=== PATIENT | male | born 1940 | race Caucasian/White ===

== ENCOUNTER 2018-03-09 06:31 | Inpatient (IN) | payer MEDICARE, SELFPAY ==
[~2018-03-09] VITALS: Ht 177.8 cm; Wt 137.5 kg
[~2018-03-09 06:31] MED LIST: ACET325 PO; ALBU3IS INH; ALBU90OI; ALBU90OI6 INH; ALBUTEROL; AMOCLA500 PO; ASPI81EC PO; AZIT500 PO; Aspir 8181 MG PO; Brovana15 MCG/2 M INH; CEFP200 PO; CIME400 PO; CIPR500; CLIN150 PO; DABI150C PO; DIPH50 PO; ESCI10; FLUSAL2505 IH; FURO20; FURO40; FURO40 PO; GLYMET5 PO; JANUMET XR 50-1 EACH PO; LORA10ER PO; Lasix20 MG PO; METF500 PO; METO25ER PO; METO5 PO; METO50 PO; METPRE4DP PO; OMEP20ER; OMEP20ER PO; PRED20 PO; PSEU120ER PO; PSEU30; Pulmicort Fle180 MCG INH; RANI150 PO; SERT100 PO; SPIR25; TUDORZA PRESS400 MCG INH; Ventolin Soln3 ML INH; WARF5; [UNRECOGNIZED DRUG - OTHER]; [UNRECOGNIZED DRUG - REMARK]
[2018-03-09 07:01] LABS: BASOPHILS ABSOLUTE AUTO 0.05 K/mm3 (0.00-0.23); BASOPHILS PERCENT AUTO 0 % (0-2); EOSINOPHILS ABSOLUTE AUTO 0.14 K/mm3 (0.00-0.68); EOSINOPHILS PERCENT AUTO 1 % (0-6); Hematocrit 54.3 % (37.0-53.0); Hemoglobin 17.2 g/dL (13.5-17.5); IMMATURE GRAN ABSOLUTE AUTO 0.18 K/mm3 (0.00-0.10); IMMATURE GRAN PERCENT AUTO 1 % (0-1); LYMPHOCYTES ABSOLUTE AUTO 0.77 K/mm3 (0.84-5.20); LYMPHOCYTES PERCENT AUTO 3 % (21-46); MONOCYTES ABSOLUTE AUTO 0.97 K/mm3 (0.16-1.47); MONOCYTES PERCENT AUTO 4 % (4-13); Mean Corpuscular HGB 28.9 pg (26.0-34.0); Mean Corpuscular HGB Conc 31.7 g/dL (31.5-36.5); Mean Corpuscular Volume 91 fL (80-100); Mean Platelet Volume 10.2 fL (9.1-12.4); NEUTROPHILS ABSOLUTE AUTO 22.25 K/mm3 (1.96-9.15); NEUTROPHILS PERCENT AUTO 91 % (41-73); Platelet Count 276 K/mm3 (150-400); RDW Coefficient Variation 14.6 % (11.7-14.2); RDW Standard Deviation 49.1 fL (35.1-46.3); Red Blood Cell Count 5.96 M/mm3 (4.30-5.90); White Blood Cell Count 24.36 K/mm3 (4.00-11.30)
[2018-03-09 07:14] LABS: PCO2 Arterial 50.9 mmHg (35-45); PO2 Arterial 82.5 mmHg (80-100); pH Blood Arterial 7.32 (7.35-7.45)
[2018-03-09 07:16] LABS: Alanine Aminotransfer (ALT/SGP 20 U/L (12-78); Albumin, Blood 3.4 g/dL (3.4-5.0); Albumin/Globulin Ratio 0.8 (0.8-1.8); Alk Phos 49 U/L (50-136); Anion Gap 9 mmol/L (6-16); Aspartate Aminotrans (AST/SGOT 15 U/L (12-37); Bilirubin, Total 0.8 mg/dL (0.1-1.0); Blood Urea Nitrogen 17 mg/dL (8-24); Bun/Creatinine Ratio 16.2 (12.0-20.0); CO2, Blood 25 mmol/L (21-32); Calcium, Blood 8.8 mg/dL (8.5-10.1); Chloride, Blood 102 mmol/L (98-108); Creatinine, Blood 1.05 mg/dL (0.60-1.20); Globulin, Blood 4.5 g/dL (2.2-4.0); Glomerular Filtration Rate >60 (60-); Glucose, Blood 196 mg/dL (70-99); Potassium, Blood 5.2 mmol/L (3.5-5.5); Sodium, Blood 136 mmol/L (136-145); Total Protein, Blood 7.9 g/dL (6.4-8.2); Troponin I <0.015 ng/mL (0.000-0.040)
[2018-03-09 07:23] LABS: International Normalized Ratio 1.13; Prothrombin Time Results 11.8 Sec (9.7-11.5)
[2018-03-09 08:15] LABS: Source, Urine Clean Catch
[2018-03-09 08:28] LABS: Bilirubin, Urine Neg (Neg); Blood, Urine Neg (Neg); Glucose Qualitative, Urine Neg (Neg); Ketones, Urine Neg (Neg); Leukocyte Esterase, Urine Neg (Neg); Nitrite, Urine Neg (Neg); Protein, Urine 1+ (Neg); Specific Gravity, Urine 1.015 (1.003-1.022); Urobilinogen, Urine NORM (Normal)
[2018-03-09 08:39] LABS: Appearance, Urine Clear (Clear); Color, Urine Yellow (P-Yellow)
[2018-03-10 04:15] LABS: BASOPHILS ABSOLUTE AUTO 0.02 K/mm3 (0.00-0.23); BASOPHILS PERCENT AUTO 0 % (0-2); EOSINOPHILS PERCENT AUTO 0 % (0-6); Hemoglobin 13.8 g/dL (13.5-17.5); IMMATURE GRAN ABSOLUTE AUTO 0.18 K/mm3 (0.00-0.10); IMMATURE GRAN PERCENT AUTO 1 % (0-1); LYMPHOCYTES ABSOLUTE AUTO 0.45 K/mm3 (0.84-5.20); LYMPHOCYTES PERCENT AUTO 2 % (21-46); MONOCYTES ABSOLUTE AUTO 0.33 K/mm3 (0.16-1.47); MONOCYTES PERCENT AUTO 1 % (4-13); Mean Corpuscular HGB 28.8 pg (26.0-34.0); Mean Corpuscular HGB Conc 31.4 g/dL (31.5-36.5); Mean Corpuscular Volume 92 fL (80-100); Mean Platelet Volume 10.5 fL (9.1-12.4); NEUTROPHILS ABSOLUTE AUTO 22.78 K/mm3 (1.96-9.15); NEUTROPHILS PERCENT AUTO 96 % (41-73); Platelet Count 190 K/mm3 (150-400); RDW Coefficient Variation 14.9 % (11.7-14.2); RDW Standard Deviation 49.9 fL (35.1-46.3); White Blood Cell Count 23.76 K/mm3 (4.00-11.30)
[2018-03-10 04:34] LABS: Albumin, Blood 2.5 g/dL (3.4-5.0); Anion Gap 5 mmol/L (6-16); Blood Urea Nitrogen 18 mg/dL (8-24); CO2, Blood 27 mmol/L (21-32); Calcium, Blood 7.9 mg/dL (8.5-10.1); Chloride, Blood 106 mmol/L (98-108); Creatinine, Blood 0.75 mg/dL (0.60-1.20); Glomerular Filtration Rate >60 (60-); Glucose, Blood 218 mg/dL (70-99); Phosphorus, Blood 2.3 mg/dL (2.5-4.9); Potassium, Blood 4.7 mmol/L (3.5-5.5); Sodium, Blood 138 mmol/L (136-145)
[2018-03-11 05:15] LABS: BASOPHILS ABSOLUTE AUTO 0.02 K/mm3 (0.00-0.23); BASOPHILS PERCENT AUTO 0 % (0-2); EOSINOPHILS PERCENT AUTO 0 % (0-6); Hematocrit 43.5 % (37.0-53.0); Hemoglobin 13.7 g/dL (13.5-17.5); IMMATURE GRAN ABSOLUTE AUTO 0.14 K/mm3 (0.00-0.10); IMMATURE GRAN PERCENT AUTO 1 % (0-1); LYMPHOCYTES ABSOLUTE AUTO 0.37 K/mm3 (0.84-5.20); LYMPHOCYTES PERCENT AUTO 2 % (21-46); MONOCYTES PERCENT AUTO 3 % (4-13); Mean Corpuscular HGB 29.1 pg (26.0-34.0); Mean Corpuscular HGB Conc 31.5 g/dL (31.5-36.5); Mean Corpuscular Volume 92 fL (80-100); Mean Platelet Volume 10.8 fL (9.1-12.4); NEUTROPHILS PERCENT AUTO 94 % (41-73); Platelet Count 198 K/mm3 (150-400); RDW Coefficient Variation 15.1 % (11.7-14.2); RDW Standard Deviation 51.3 fL (35.1-46.3); Red Blood Cell Count 4.71 M/mm3 (4.30-5.90); White Blood Cell Count 16.83 K/mm3 (4.00-11.30)
[2018-03-11 05:34] LABS: Albumin, Blood 2.6 g/dL (3.4-5.0); Anion Gap 4 mmol/L (6-16); Blood Urea Nitrogen 20 mg/dL (8-24); Bun/Creatinine Ratio 27.9 (12.0-20.0); CO2, Blood 28 mmol/L (21-32); Calcium, Blood 8.2 mg/dL (8.5-10.1); Chloride, Blood 105 mmol/L (98-108); Creatinine, Blood 0.72 mg/dL (0.60-1.20); Glomerular Filtration Rate >60 (60-); Glucose, Blood 259 mg/dL (70-99); Phosphorus, Blood 2.3 mg/dL (2.5-4.9); Potassium, Blood 5.2 mmol/L (3.5-5.5); Sodium, Blood 137 mmol/L (136-145); Troponin I <0.015 ng/mL (0.000-0.040)
[2018-03-12 03:53] LABS: BASOPHILS ABSOLUTE AUTO 0.01 K/mm3 (0.00-0.23); BASOPHILS PERCENT AUTO 0 % (0-2); EOSINOPHILS PERCENT AUTO 0 % (0-6); Hematocrit 41.5 % (37.0-53.0); IMMATURE GRAN ABSOLUTE AUTO 0.06 K/mm3 (0.00-0.10); IMMATURE GRAN PERCENT AUTO 1 % (0-1); LYMPHOCYTES ABSOLUTE AUTO 0.62 K/mm3 (0.84-5.20); LYMPHOCYTES PERCENT AUTO 5 % (21-46); MONOCYTES ABSOLUTE AUTO 0.76 K/mm3 (0.16-1.47); MONOCYTES PERCENT AUTO 6 % (4-13); Mean Corpuscular HGB Conc 31.3 g/dL (31.5-36.5); Mean Corpuscular Volume 93 fL (80-100); Mean Platelet Volume 10.6 fL (9.1-12.4); NEUTROPHILS ABSOLUTE AUTO 10.56 K/mm3 (1.96-9.15); NEUTROPHILS PERCENT AUTO 88 % (41-73); Platelet Count 176 K/mm3 (150-400); RDW Coefficient Variation 15.1 % (11.7-14.2); RDW Standard Deviation 51.6 fL (35.1-46.3); Red Blood Cell Count 4.48 M/mm3 (4.30-5.90); White Blood Cell Count 12.01 K/mm3 (4.00-11.30)
[2018-03-12 04:08] LABS: Albumin, Blood 2.5 g/dL (3.4-5.0); Anion Gap 6 mmol/L (6-16); Blood Urea Nitrogen 24 mg/dL (8-24); CO2, Blood 32 mmol/L (21-32); Calcium, Blood 8.3 mg/dL (8.5-10.1); Chloride, Blood 103 mmol/L (98-108); Glomerular Filtration Rate >60 (60-); Glucose, Blood 174 mg/dL (70-99); Phosphorus, Blood 2.8 mg/dL (2.5-4.9); Potassium, Blood 4.7 mmol/L (3.5-5.5); Sodium, Blood 141 mmol/L (136-145)
[2018-03-13 04:15] LABS: BASOPHILS ABSOLUTE AUTO 0.01 K/mm3 (0.00-0.23); BASOPHILS PERCENT AUTO 0 % (0-2); EOSINOPHILS ABSOLUTE AUTO 0.11 K/mm3 (0.00-0.68); EOSINOPHILS PERCENT AUTO 1 % (0-6); Hemoglobin 13.7 g/dL (13.5-17.5); IMMATURE GRAN ABSOLUTE AUTO 0.06 K/mm3 (0.00-0.10); IMMATURE GRAN PERCENT AUTO 1 % (0-1); LYMPHOCYTES ABSOLUTE AUTO 0.69 K/mm3 (0.84-5.20); LYMPHOCYTES PERCENT AUTO 8 % (21-46); MONOCYTES PERCENT AUTO 8 % (4-13); Mean Corpuscular HGB 29.2 pg (26.0-34.0); Mean Corpuscular HGB Conc 31.9 g/dL (31.5-36.5); Mean Corpuscular Volume 92 fL (80-100); Mean Platelet Volume 10.7 fL (9.1-12.4); NEUTROPHILS ABSOLUTE AUTO 6.99 K/mm3 (1.96-9.15); NEUTROPHILS PERCENT AUTO 82 % (41-73); Platelet Count 174 K/mm3 (150-400); RDW Coefficient Variation 14.8 % (11.7-14.2); Red Blood Cell Count 4.69 M/mm3 (4.30-5.90); White Blood Cell Count 8.56 K/mm3 (4.00-11.30)
[2018-03-13 04:33] LABS: Albumin, Blood 2.8 g/dL (3.4-5.0); Anion Gap 5 mmol/L (6-16); Blood Urea Nitrogen 22 mg/dL (8-24); Bun/Creatinine Ratio 29.8 (12.0-20.0); CO2, Blood 36 mmol/L (21-32); Calcium, Blood 8.8 mg/dL (8.5-10.1); Chloride, Blood 96 mmol/L (98-108); Creatinine, Blood 0.74 mg/dL (0.60-1.20); Glomerular Filtration Rate >60 (60-); Glucose, Blood 144 mg/dL (70-99); Phosphorus, Blood 3.1 mg/dL (2.5-4.9); Potassium, Blood 4.2 mmol/L (3.5-5.5); Sodium, Blood 137 mmol/L (136-145)
[2018-03-14 04:03] LABS: BASOPHILS ABSOLUTE AUTO 0.01 K/mm3 (0.00-0.23); BASOPHILS PERCENT AUTO 0 % (0-2); EOSINOPHILS ABSOLUTE AUTO 0.22 K/mm3 (0.00-0.68); EOSINOPHILS PERCENT AUTO 2 % (0-6); Hematocrit 44.1 % (37.0-53.0); Hemoglobin 14.3 g/dL (13.5-17.5); IMMATURE GRAN ABSOLUTE AUTO 0.12 K/mm3 (0.00-0.10); IMMATURE GRAN PERCENT AUTO 1 % (0-1); LYMPHOCYTES PERCENT AUTO 8 % (21-46); MONOCYTES ABSOLUTE AUTO 0.81 K/mm3 (0.16-1.47); MONOCYTES PERCENT AUTO 8 % (4-13); Mean Corpuscular HGB Conc 32.4 g/dL (31.5-36.5); Mean Corpuscular Volume 90 fL (80-100); Mean Platelet Volume 10.7 fL (9.1-12.4); NEUTROPHILS ABSOLUTE AUTO 7.73 K/mm3 (1.96-9.15); NEUTROPHILS PERCENT AUTO 80 % (41-73); Platelet Count 181 K/mm3 (150-400); RDW Coefficient Variation 14.5 % (11.7-14.2); RDW Standard Deviation 47.2 fL (35.1-46.3); Red Blood Cell Count 4.93 M/mm3 (4.30-5.90); White Blood Cell Count 9.69 K/mm3 (4.00-11.30)
[2018-03-14 04:22] LABS: Albumin, Blood 2.7 g/dL (3.4-5.0); Anion Gap 5 mmol/L (6-16); Blood Urea Nitrogen 21 mg/dL (8-24); Bun/Creatinine Ratio 25.5 (12.0-20.0); CO2, Blood 37 mmol/L (21-32); Calcium, Blood 8.7 mg/dL (8.5-10.1); Chloride, Blood 94 mmol/L (98-108); Creatinine, Blood 0.83 mg/dL (0.60-1.20); Glomerular Filtration Rate >60 (60-); Glucose, Blood 142 mg/dL (70-99); Phosphorus, Blood 3.9 mg/dL (2.5-4.9); Sodium, Blood 136 mmol/L (136-145)
[2018-03-15 05:10] LABS: Albumin, Blood 2.8 g/dL (3.4-5.0); Anion Gap 5 mmol/L (6-16); Blood Urea Nitrogen 19 mg/dL (8-24); Bun/Creatinine Ratio 25.4 (12.0-20.0); CO2, Blood 36 mmol/L (21-32); Calcium, Blood 8.9 mg/dL (8.5-10.1); Chloride, Blood 94 mmol/L (98-108); Creatinine, Blood 0.75 mg/dL (0.60-1.20); Glomerular Filtration Rate >60 (60-); Glucose, Blood 160 mg/dL (70-99); Phosphorus, Blood 3.7 mg/dL (2.5-4.9); Potassium, Blood 3.8 mmol/L (3.5-5.5); Sodium, Blood 135 mmol/L (136-145)
[2018-03-15] MEDS ORDERED: ACET325 PO (11:35)
[2018-03-15] MEDS ORDERED: GUAI600T33 PO (11:40)
[2018-03-15] MEDS ORDERED: Amoxicillin875 MG PO (11:40)
[2018-03-15] MEDS ORDERED: Pedi-Dri 100,0060 GM TOP (11:41)
[2018-03-15] MEDS ORDERED: Acidophilus La1 EACH PO (11:43)
== END 2018-03-15 15:53 | disposition home or self-care (01) | DRG 871 ==
LOC: ER 06:31 → ICUW 08:14 → PCU 03-12 11:51
PROVIDERS: Emergency Medicine; Family Medicine; Internal Medicine; Internal Medicine Critical Care Medicine
DX: A40.3 Sepsis due to Streptococcus pneumoniae (principal); J96.21 Acute and chronic respiratory failure with hypoxia; R65.21 Severe sepsis with septic shock; J18.9 Pneumonia, unspecified organism; J96.22 Acute and chronic respiratory failure with hypercapnia; Z68.42 Body mass index [BMI] 45.0-49.9, adult; J44.1 Chronic obstructive pulmonary disease with (acute) exacerbation; J44.0 Chronic obstructive pulmonary disease with (acute) lower respiratory infection; E66.9 Obesity, unspecified; G47.33 Obstructive sleep apnea (adult) (pediatric); I10 Essential (primary) hypertension; I48.91 Unspecified atrial fibrillation; R53.81 Other malaise; Z89.511 Acquired absence of right leg below knee; I87.2 Venous insufficiency (chronic) (peripheral); I25.10 Atherosclerotic heart disease of native coronary artery without angina pectoris; Z86.718 Personal history of other venous thrombosis and embolism; I12.9 Hypertensive chronic kidney disease with stage 1 through stage 4 chronic kidney disease, or unspecified chronic kidney disease; E11.22 Type 2 diabetes mellitus with diabetic chronic kidney disease; N18.9 Chronic kidney disease, unspecified; I95.9 Hypotension, unspecified; Z99.81 Dependence on supplemental oxygen
CPT/HCPCS: 36415; 36600; 51700; 51702; 51703; 71045; 71046; 80053; 80069; 82803; 82947; 83605; 83880; 84484; 85025; 85610; 87040; 87070; 87077; 87185; 87186; 87205; 93005; 93010; 94640; 94660; 94762; 96361; 96365; 96372; 96375; 97161; 97165; 97535; 99285; C8929; G8978; G8979; G8980; G8987; G8988; G8989; J0456; J0696; J1650; J1940; J2060; J2930; J3010; J7030; J7050; J7060; J7120; Q9957

== ENCOUNTER 2019-05-13 10:00 | Inpatient (IN) | payer MEDICARE, SELFPAY ==
[~2019-05-13] VITALS: Ht 175.3 cm; Wt 137.2 kg
[~2019-05-13 10:00] MED LIST changes: +ALBU2.5V5 INH; +Acidophilus La1 EACH PO; +Amoxicillin875 MG PO; +GUAI600T33 PO; +Pedi-Dri 100,0060 GM TOP; -Ventolin Soln3 ML INH; +[UNRECOGNIZED DRUG - OTHER] PO
[2019-05-13 10:32] LABS: BASOPHILS ABSOLUTE AUTO 0.03 K/mm3 (0.00-0.23); BASOPHILS PERCENT AUTO 0 % (0-2); EOSINOPHILS ABSOLUTE AUTO 0.31 K/mm3 (0.00-0.68); EOSINOPHILS PERCENT AUTO 4 % (0-6); Hematocrit 49.8 % (37.0-53.0); Hemoglobin 15.7 g/dL (13.5-17.5); IMMATURE GRAN ABSOLUTE AUTO 0.03 K/mm3 (0.00-0.10); IMMATURE GRAN PERCENT AUTO 0 % (0-1); LYMPHOCYTES ABSOLUTE AUTO 0.83 K/mm3 (0.84-5.20); LYMPHOCYTES PERCENT AUTO 12 % (21-46); MONOCYTES ABSOLUTE AUTO 0.68 K/mm3 (0.16-1.47); MONOCYTES PERCENT AUTO 9 % (4-13); Mean Corpuscular HGB Conc 31.5 g/dL (31.5-36.5); Mean Corpuscular Volume 95 fL (80-100); Mean Platelet Volume 10.7 fL (9.1-12.4); NEUTROPHILS ABSOLUTE AUTO 5.36 K/mm3 (1.96-9.15); NEUTROPHILS PERCENT AUTO 74 % (41-73); Platelet Count 250 K/mm3 (150-400); RDW Coefficient Variation 14.5 % (11.7-14.2); Red Blood Cell Count 5.24 M/mm3 (4.30-5.90); White Blood Cell Count 7.24 K/mm3 (4.00-11.30)
[2019-05-13 10:35] LABS: Base Excess Venous 14.5 mmol/L; Bicarbonate Venous 34.5 mmol/L (24.0-30.0); PCO2 Venous 69.1 mmHg (38-42); PO2 Venous 63.9 mmHg (38-42); pH Blood Venous 7.37 (7.34-7.37)
[2019-05-13] MEDS ORDERED: Sudogest30 MG PO (10:35)
[2019-05-13 10:45] LABS: Alanine Aminotransfer (ALT/SGP 13 U/L (12-78); Albumin, Blood 3.2 g/dL (3.4-5.0); Albumin/Globulin Ratio 0.8 (0.8-1.8); Alk Phos 57 U/L (50-136); Anion Gap 3 mmol/L (6-16); Aspartate Aminotrans (AST/SGOT 10 U/L (12-37); Bilirubin, Total 0.7 mg/dL (0.1-1.0); Blood Urea Nitrogen 11 mg/dL (8-24); Bun/Creatinine Ratio 13.3 (12.0-20.0); CO2, Blood 38 mmol/L (21-32); Calcium, Blood 8.9 mg/dL (8.5-10.1); Chloride, Blood 97 mmol/L (98-108); Creatinine, Blood 0.83 mg/dL (0.60-1.20); Globulin, Blood 3.8 g/dL (2.2-4.0); Glomerular Filtration Rate >60 (60-); Glucose, Blood 109 mg/dL (70-99); Potassium, Blood 4.5 mmol/L (3.5-5.5); Sodium, Blood 138 mmol/L (136-145); Troponin I <0.015 ng/mL (0.000-0.040)
[2019-05-13 10:47] LABS: International Normalized Ratio 1.18; Prothrombin Time Results 12.3 Sec (9.7-11.5)
[2019-05-13 11:18] LABS: Source, Urine Voided
[2019-05-13 11:23] LABS: Bilirubin, Urine Neg (Neg); Blood, Urine Neg (Neg); Glucose Qualitative, Urine Neg (Neg); Ketones, Urine 1+ (Neg); Leukocyte Esterase, Urine 1+ (Neg); Nitrite, Urine Neg (Neg); Protein, Urine 2+ (Neg); Urobilinogen, Urine 2+ (Normal)
[2019-05-13 11:41] LABS: Appearance, Urine Clear (Clear); Color, Urine Yellow (P-Yellow)
[2019-05-13 11:51] LABS: Bacteria Mod /hpf; Granular Casts 0-2 /lpf (0); Mucus Heavy (0-Heavy); Red Blood Cells, Urine 0-2 /hpf (0-2); Squamous Epithelial Cells Rare /hpf (Few); White Blood Cells, Urine 0-2 /hpf (0-5)
[2019-05-13] MEDS ORDERED: Zoloft100 MG PO (15:00)
[2019-05-13] MEDS ORDERED: FURO40 PO (15:01)
[2019-05-13] MEDS ORDERED: Glyburide-Metf1 EAC2 PO (15:01)
[2019-05-13] MEDS ORDERED: ALBU90OI61 INH (15:02)
--- NOTE | 2019-05-13 16:28 | NUR ---
ATTEMPTED TO CALL ED FOR REPORT FOR PT ADMIT- AWAITING A CALL BACK
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
--- NOTE | 2019-05-14 07:11 | NUR ---
PT admitted with acute resp failure. needed oxygen 4 liters at rest to maintain sats greater than 88%. called to say PT is supposed to take 60 mg of oral lasix q day and has only been taking prn. Compliant with hospital cpap. not out of bed wc bound baseline.
--- NOTE | 2019-05-14 07:38 | NUR ---
ASSUMED CARE OF PT- PT ALERT AND ORIENTED, NO CURRENT S&S OF PAIN OR DISTRESS NOTED. PT HAD C-PAP ON O2 SATS 88% WITH A 4L BLEED IN, INCREASED TO 5L BLEED IN AND SATS CAME UP TO 91%. PT LLE IS COOL TO TOUCH HOWEVER PULSE IS PALPABLE, EDEMA GREATLY REDUCED TODAY FROM YESTERDAYS NON-PITTING EDEMA, TRACE AMOUNTS STILL PRESENT. PT IN BED CALL LIGHT IN REACH, PT CALLS APPROPRIATELY, BEDSIDE REPORT RECIEVED FROM NIGHT TAYLER VELASQUEZ.
--- NOTE | 2019-05-14 11:38 | NUR ---
Patient is sitting up in bed and alert. Patient openly shares about his medical issues, his family (including of his son several years ago) and about his michelle. Patient admits that the medical issues he has are, in large part, a result of his choices and that is a struggle for him. I listen empathically, provide pastoral spiritual counselor, explore patient's belief system (Restorationist), recite Bible verses that deal with guilt and forgiveness, encourage self-care and provide prayer. Patient responds well and voices appreciation for the visit.
--- NOTE | 2019-05-14 17:40 | NUR ---
LATE ENTRY 1200 PER RT RECOMENDATION SPOKE TO DR RAMOS ABOUT PT. LUNG SOUND TIGHT AND DIMINISHED T/O, RT HEARS CRACKLES IN THE BASES. CAME BACK TO SEE THE PT, NEW ORDER FOR OT IV LASIX. PT SBP 111 DR STATED OK TO GIVE IV LASIX NO PARAMETERS FOR MED. ADMINISTERED ORDERED ONCE VERIFIED SBP 106 AT THE TIME OF ADMIN.
--- NOTE | 2019-05-14 18:03 | NUR ---
SHIFT SUMMARY- PT ALERT AND ORTIENTED, RECIEVED IV LASIX THIS EVENING WITH NO RESULT AT THIS TIME. PT IS SITTING UP IN BED WITH THE CALL LIGHT IN REACH, PT CALLS APPROPRIATELY. PT HAS FAMILY AT THE BEDSIDE AT THIS TIME. PT IS ON IV SOLUMEDROL QID AT THIS TIME. DENIES PAIN BUT SEEMS TO HAVE AN INCREASED SOB T/O THE DAY. PT SPENT A LARGE AMOUNT OF THE DAY ON HIS CPAP WITH 5L O2 BLEED IN. WILL CONTINUE TO MONITOR PT AND PASS ON INFORMATION IN BEDSIDE REPORT.
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
--- NOTE | 2019-05-15 04:17 | NUR ---
0300 PT TRANSFERRED FROM ROOM 350 TO ROOM 326 PER BED WITH ALL PERSONAL BELONGINGS FOR NURSING CONVENIENCE. THIS NURSE ATTEMPTED TO CALL RACHEL AT [phone] AND WAS UNABLE TO LEAVE MESSAGE MAILBOX WAS FULL.
--- NOTE | 2019-05-15 05:25 | NUR ---
SHIFT SUMMARY: 79 Y/O MALE RESTED COMFORTABLY FOR THIS NURSE DURING SHIFT, NO RESPIRATORY DISTRESS NOTED, WEARING C/PAP WITH 5L/M OF O2, DENIES PAIN OR NAUSEA, BED LOW POSITION, CALL LIGHT AT SIDE.
[2019-05-15 05:39] LABS: Anion Gap 4 mmol/L (6-16); Blood Urea Nitrogen 25 mg/dL (8-24); Bun/Creatinine Ratio 29.6 (12.0-20.0); CO2, Blood 36 mmol/L (21-32); Calcium, Blood 8.8 mg/dL (8.5-10.1); Chloride, Blood 95 mmol/L (98-108); Creatinine, Blood 0.84 mg/dL (0.60-1.20); Glomerular Filtration Rate >60 (60-); Glucose, Blood 189 mg/dL (70-99); Potassium, Blood 4.3 mmol/L (3.5-5.5); Sodium, Blood 135 mmol/L (136-145)
--- NOTE | 2019-05-15 18:38 | NUR ---
SHIFT SUMMARY PT AXO, PLEASNAT AND COOPERATIVE WITH CARE. SOB WITH EXERTION. VSS. 92% ON 5L VIA NC. IV PATENT AND SALINE LOCKED. PT DENIES PAIN. BED IN LOW POSITION, CALL LIGHT WITHIN REACH. PT CALLS APPROPRIATELY
--- NOTE | 2019-05-16 04:54 | NUR ---
SHIFT SUMMARY: PT IS ALERT AND ORIENTED. PT IS CALM AND COOPERATIVE WITH CARE. PT IS A MAX ASSIST R. AKA. PT CALLS APPROPRIATELY. PT WORE CPAP OVERNIGHT. PT DENIES PAIN, NAUSEA, VOMITING, AND SOB. PT SLEPT MOST OF THE NIGHT WITHOUT COMPLICATION. NO ACUTE CHANGES. WILL CONTINUE TO MONITOR.
[2019-05-16 08:01] LABS: Anion Gap 3 mmol/L (6-16); Blood Urea Nitrogen 27 mg/dL (8-24); Bun/Creatinine Ratio 37.3 (12.0-20.0); CO2, Blood 40 mmol/L (21-32); Chloride, Blood 94 mmol/L (98-108); Creatinine, Blood 0.72 mg/dL (0.60-1.20); Glomerular Filtration Rate >60 (60-); Glucose, Blood 212 mg/dL (70-99); Potassium, Blood 4.2 mmol/L (3.5-5.5); Sodium, Blood 137 mmol/L (136-145)
[2019-05-16 12:02] LABS: PO2 Arterial 70.7 mmHg (80-100)
[2019-05-16 12:03] LABS: PCO2 Arterial 71 mmHg (35-45)
--- NOTE | 2019-05-16 19:20 | NUR ---
SHIFT SUMMARY PT AXO PLEASANT AND COOPERATIVE WITH CARE. 1050 PT COMPLAINED OF SOB WITH BED BATH. NURSE CALLED RT TO ASSESS. JENNA SAUCEDO, RT GAVE BREATHING TX, SEE NOTE. ABG DRAWN AT 1150, SEE LABS. AT 1330, PT COMPLAINED OF SOB. RACHEL LUCIANO IN TO ASSESS. PT PLACED ON CPAP AT 3L, SAT AT 89%. DR RAMOS NOTIFIED AT 1343, BIPAP ORDERED AND PRN ALBUTEROL. DR DORMAN IN TO CONSULT, SEE NOTE. PT REMAINED ON BI-PAP PER HIS PREFERENCE. O2 SAT AT 92%. BED IN LOW POSITION, CALL LIGHT WITHIN REACH. PT ENCOURAGED TO GET OOB TO WHEELCHAIR.
[2019-05-17 05:08] LABS: Anion Gap 5 mmol/L (6-16); Blood Urea Nitrogen 29 mg/dL (8-24); Bun/Creatinine Ratio 37.9 (12.0-20.0); CO2, Blood 39 mmol/L (21-32); Calcium, Blood 8.9 mg/dL (8.5-10.1); Chloride, Blood 94 mmol/L (98-108); Creatinine, Blood 0.77 mg/dL (0.60-1.20); Glomerular Filtration Rate >60 (60-); Glucose, Blood 221 mg/dL (70-99); Potassium, Blood 3.8 mmol/L (3.5-5.5); Sodium, Blood 138 mmol/L (136-145)
--- NOTE | 2019-05-17 06:10 | NUR ---
a+o, p+c with care, no complaint of sob, rt provided scheduled treatments, still waiting opportunity to inform ss of need for bipap eval, bipap used throughout the shift, call light in reach, will provide assesment and treatment until bsr shared with oncoming day staff
--- NOTE | 2019-05-17 16:37 | NUR ---
SHIFT SUMMARY PT REQUIRED INSULIN COVERAGE TODAY. HE IS A&O X4 AND COOPERATIVE WITH CARE. I DISCOVERED THE BEGINNING OF SKIN BREAKDOWN ON HIS COCCYX TODAY AND INTERIOR ASPECT OF HIS UPPER LEGS, MEPILEX APPLIED TO ALL - PHOTOS IN CHART. IV ANTIBIOTICS INFUSING. IV STEROIDS ADMINISTERED ORDERED. DOCTOR RECOMMENDING NONINVASIVE HOME VENTILATOR SYSTEM TO HELP WITH COPD/RESPIRATORY DIFFICULTIES. PT USING BIPAP WHILE IN HOSPITAL, SWITCHING TO NC @ 2 LPM WHEN VISITING OR EATING. NOTE - OLD CELLULITIS OF LLE - NONPAINFUL, RT LEG AMPUTATION.
--- NOTE | 2019-05-18 04:04 | NUR ---
pt refused to be changed and repositioned because of shortness of breath but has a yeast infection on bottom. Also did not want leg to be elevated. He refused to be cared for.
--- NOTE | 2019-05-18 06:22 | NUR ---
a+o, using bipap, refused to be repositioned stated his bottom did not hurt and that he did not wish to disconnect his bipap, assured him we would be careful with his 02 and that even if his backside did not hurt it was better to reposition frequently, call light in reach, will continue to monitor and treat until share bsr with day staff
--- NOTE | 2019-05-18 13:15 | NUR ---
SPOKE WITH DR. DAS ABOUT PATIENT'S REQUEST FOR HIS HOME PSEUDOPHED. NEW ORDER TO START THAT MEDICATION.
--- NOTE | 2019-05-18 14:25 | NUR ---
Initial Visit: Palliative Care Consult for Advanced Care Planning. Pt is A&Ox4 and denies pain at this time. Pt reports moderate dyspnea that worsens with exertion. Pt denies anxiety at this time. Engaged in therapeutic discussion regarding advanced care planning. Pt reports living at home with his and is of Hindu michelle. He reports adequate support with his , 8 children, and many grandchildren. Pt reports using a power chair and is independent of bathing, dressing, and feeding. Assessed Pt's knowledge of COPD with him stating "not much". Educated Pt on disease process including trajectory of disease. Educated on the importance of routine discussions with his hiv nurse and PCP regarding disease process in order to plan accordingly. Educated Pt on hospice as an option when he reaches end stage. Discussed AD/POLST and Pt reports having one completed at home. Requested Pt to have his or family members bring copy to hospital for hospital records. Pt reports no concerns at this time. Palliative Care will remain available.
--- NOTE | 2019-05-18 16:12 | NUR ---
[facility] intial visit: Mr. Padron was welcoming of visit, but told me that talking made his SOB worse. Visit kept short for this reason. He is Adventist, but does not regularly attend sevices. He has a large, loving family and they are his vikki and reason for living. He allowed me to pray for him at bedside. He states he is not worried or fearful, and beleives he is improving and humera return home soon. I will remain available.
--- NOTE | 2019-05-18 18:37 | NUR ---
END OF SHIFT SUMMARY: PATIENT DENIED PAIN OR DISCOMFORT THROUGHOUT THE SHIFT. PATIENT REQUESTED BIPAP THREE TIMES TODAY. REQUESTED PRN BREATHING TREATMENT ONCE. STABLE ON 2.5L VIA NC WHEN NOT ON BIPAP. PATIENT IS AWAITING POTENTIAL DISCHARGE TOMORROW. PATIENT AGREEABLE TO REPOSITION THROUGHOUT THE DAY. PATIENT REFUSED GETTING UP TO THE CHAIR OR WHEELCHAIR RELATED TO FATIGUE AND SOB. ENCOURAGED PATIENT TO PERFORM ROM EXERCISES IN THE BED.
--- NOTE | 2019-05-19 01:56 | NUR ---
informed hospitalist of day shifts concern r/steroid change from q6 to daily with no coverage from 1144 on 05/18/19 until 0900 05/19/19 she said she would evaluate and write orders as appropriate, pt watching tv and resting with no visible change or distress, bed in low position, call light in reach, bipap functioning as designed
[2019-05-19 05:48] LABS: Anion Gap 4 mmol/L (6-16); Blood Urea Nitrogen 34 mg/dL (8-24); Bun/Creatinine Ratio 45.2 (12.0-20.0); CO2, Blood 38 mmol/L (21-32); Calcium, Blood 8.7 mg/dL (8.5-10.1); Chloride, Blood 96 mmol/L (98-108); Creatinine, Blood 0.75 mg/dL (0.60-1.20); Glomerular Filtration Rate >60 (60-); Glucose, Blood 211 mg/dL (70-99); Potassium, Blood 3.5 mmol/L (3.5-5.5); Sodium, Blood 138 mmol/L (136-145)
--- NOTE | 2019-05-19 06:35 | NUR ---
bipap working well, hob raised states he rested well, call light in reach, able to make needs known, will continue to monitor and treat until sbar report shared with day staff, saline locked.
[2019-05-19] MEDS ORDERED: LEVO750 PO (12:57)
[2019-05-19] MEDS ORDERED: Pedi-Dri 100,0060 GM TOP (12:58)
[2019-05-19] MEDS ORDERED: DELTASONE20 MG PO (12:59)
[2019-05-19] MEDS ORDERED: Perforomis20 MCG/2 M INH (13:01)
--- NOTE | 2019-05-19 15:15 | NUR ---
DISCHARGE PT DISCHARGED TO HOME. THIS RN EXPLAINED DISCHARGE INSTRUCTIONS AND MEDICATIONS TO PT AND PT'S SPOUSE AND HE REPORTS HE UNDERSTANDS. PT'S IV REMOVED WITHOUT DIFFICULTY. PT HAD A INCONTINENCE OF STOOL AND THIS RN AND THE DOCTOR OF RADIOLOGY HAD TO CHANGE PT'S CLOTHES AND PLACE HIM IN A HOSPITAL GOWN AND PANTS. SOILED CLOTHES SENT HOME WIHT PT AND PT BELONGING BAG. PT'S OTHER BELONGINGS WITH SPOUSE. PT TRANSFERRED TO PRIVATE VEHILCE VIA WHEELCHAIR.
== END 2019-05-19 15:02 | disposition home or self-care (01) | DRG 189 ==
LOC: ER 10:00 → ERHOLD 14:56 → MEDS 14:56 → ENPENDDIS 05-19 11:30 → MEDS 05-19 15:02
PROVIDERS: Emergency Medicine; ADMIT Hospitalist
DX: J96.21 Acute and chronic respiratory failure with hypoxia (principal); J18.0 Bronchopneumonia, unspecified organism; J44.1 Chronic obstructive pulmonary disease with (acute) exacerbation; I50.32 Chronic diastolic (congestive) heart failure; E87.3 Alkalosis; E66.2 Morbid (severe) obesity with alveolar hypoventilation; Z68.41 Body mass index [BMI] 40.0-44.9, adult; J44.0 Chronic obstructive pulmonary disease with (acute) lower respiratory infection; F32.9 Major depressive disorder, single episode, unspecified; E11.9 Type 2 diabetes mellitus without complications; I11.0 Hypertensive heart disease with heart failure; G47.33 Obstructive sleep apnea (adult) (pediatric); I25.10 Atherosclerotic heart disease of native coronary artery without angina pectoris; I48.0 Paroxysmal atrial fibrillation; R91.8 Other nonspecific abnormal finding of lung field; Z99.81 Dependence on supplemental oxygen; Z88.5 Allergy status to narcotic agent; Z86.718 Personal history of other venous thrombosis and embolism; Z89.611 Acquired absence of right leg above knee; Z87.891 Personal history of nicotine dependence; Z79.82 Long term (current) use of aspirin; Z79.899 Other long term (current) drug therapy; I25.2 Old myocardial infarction
CPT/HCPCS: 36415; 36600; 71046; 71260; 80048; 80053; 81001; 82803; 82947; 83735; 83880; 84145; 84484; 85025; 85610; 87070; 87077; 87186; 87205; 93005; 93010; 94640; 94660; 94760; 94762; 96361-59; 96374-59; 96375-59; 99285-25; J0456; J0713; J1650; J1940; J2405; J2920; J2930; J7030; J7050; J7512; Q9967

== ENCOUNTER 2019-06-02 15:46 | Inpatient (IN) | payer MEDICARE, OTHER ==
[~2019-06-02] VITALS: Ht 175.3 cm; Wt 132.0 kg
[~2019-06-02 15:46] MED LIST changes: +ALBU90OI61 INH; +DELTASONE20 MG PO; +Glyburide-Metf1 EAC2 PO; +LEVO750 PO; +Perforomis20 MCG/2 M INH; +Sudogest30 MG PO; +Zoloft100 MG PO
[2019-06-02 16:23] LABS: BASOPHILS ABSOLUTE AUTO 0.04 K/mm3 (0.00-0.23); BASOPHILS PERCENT AUTO 0 % (0-2); EOSINOPHILS ABSOLUTE AUTO 0.02 K/mm3 (0.00-0.68); EOSINOPHILS PERCENT AUTO 0 % (0-6); Hematocrit 39.9 % (37.0-53.0); Hemoglobin 13.1 g/dL (13.5-17.5); IMMATURE GRAN ABSOLUTE AUTO 0.18 K/mm3 (0.00-0.10); IMMATURE GRAN PERCENT AUTO 1 % (0-1); LYMPHOCYTES PERCENT AUTO 3 % (21-46); MONOCYTES ABSOLUTE AUTO 1.63 K/mm3 (0.16-1.47); MONOCYTES PERCENT AUTO 7 % (4-13); Mean Corpuscular HGB Conc 32.8 g/dL (31.5-36.5); Mean Corpuscular Volume 91 fL (80-100); Mean Platelet Volume 11.2 fL (9.1-12.4); NEUTROPHILS ABSOLUTE AUTO 19.81 K/mm3 (1.96-9.15); NEUTROPHILS PERCENT AUTO 89 % (41-73); Platelet Count 151 K/mm3 (150-400); RDW Standard Deviation 50.1 fL (35.1-46.3); Red Blood Cell Count 4.37 M/mm3 (4.30-5.90); White Blood Cell Count 22.28 K/mm3 (4.00-11.30)
[2019-06-02] MEDS ORDERED: Aspirin EC81 MG PO (16:37)
[2019-06-02] MEDS ORDERED: ATOR10 PO (16:38)
[2019-06-02] MEDS ORDERED: BUPROPION XL150 MG PO (16:38)
[2019-06-02] MEDS ORDERED: Vitamin D2000 UNIT PO (16:38)
[2019-06-02 16:40] LABS: Alanine Aminotransfer (ALT/SGP 23 U/L (12-78); Albumin, Blood 2.5 g/dL (3.4-5.0); Albumin/Globulin Ratio 0.6 (0.8-1.8); Alk Phos 48 U/L (50-136); Anion Gap 7 mmol/L (6-16); Aspartate Aminotrans (AST/SGOT 23 U/L (12-37); Bilirubin, Total 1.2 mg/dL (0.1-1.0); Blood Urea Nitrogen 16 mg/dL (8-24); Bun/Creatinine Ratio 21.4 (12.0-20.0); CO2, Blood 28 mmol/L (21-32); Calcium, Blood 7.8 mg/dL (8.5-10.1); Chloride, Blood 97 mmol/L (98-108); Creatinine, Blood 0.75 mg/dL (0.60-1.20); Glomerular Filtration Rate >60 (60-); Glucose, Blood 183 mg/dL (70-99); Potassium, Blood 3.9 mmol/L (3.5-5.5); Sodium, Blood 132 mmol/L (136-145); Total Protein, Blood 6.5 g/dL (6.4-8.2); Troponin I <0.015 ng/mL (0.000-0.040)
[2019-06-02] MEDS ORDERED: GLIP5 PO (16:40)
[2019-06-02] MEDS ORDERED: Prinivil10 MG PO (16:40)
[2019-06-02] MEDS ORDERED: FINA5 PO (16:40)
[2019-06-02] MEDS ORDERED: METF500 PO (16:40)
[2019-06-02] MEDS ORDERED: QUET25 PO (16:41)
[2019-06-02] MEDS ORDERED: TAMS.4ER PO (16:41)
[2019-06-02] MEDS ORDERED: SERT100 PO (16:41)
[2019-06-02] MEDS ORDERED: Lasix40 MG PO (16:42)
[2019-06-02 18:13] LABS: Source, Urine Clean Catch
[2019-06-02 18:25] LABS: Bilirubin, Urine Neg (Neg); Blood, Urine 4+ (Neg); Glucose Qualitative, Urine Neg (Neg); Ketones, Urine Neg (Neg); Leukocyte Esterase, Urine 3+ (Neg); Nitrite, Urine Pos (Neg); Protein, Urine 2+ (Neg); Specific Gravity, Urine 1.015 (1.003-1.022); Urobilinogen, Urine NORM (Normal)
[2019-06-02 18:39] LABS: Appearance, Urine Hazy (Clear); Color, Urine Yellow (P-Yellow); White Blood Cells, Urine TNTC /hpf (0-5)
[2019-06-02 18:40] LABS: Bacteria Mod /hpf; Red Blood Cells, Urine 0-2 /hpf (0-2); Squamous Epithelial Cells Rare /hpf (Few)
--- NOTE | 2019-06-02 21:15 | NUR ---
CALLED FOR REPORT ON PATIENT; RN WILL CALL BACK.
--- NOTE | 2019-06-03 00:53 | NUR ---
ASSUMED CARE OF PATIENT AT APPROXIMATELY 2150 FROM ED RN SIM Zepeda RN. PATIENT ARRIVED TO UNIT VIA STRETCHER; MAS ASSIST TO TRANSFER VIA SLIDE SHEET FROM ED TO PCU STRETCHER. PATIENT REQUESTED BREATHING TREATMENT UPON ARRIVAL TO UNIT. PATIENT HAS RIGHT BKA; PATIENT REPORTS THAT HE USES A MOTORIZED W/C AT BASELINE; REPORTS HE FELL THE DAY AFTER HE WAS DISCHARGED THIS MONTH; BRUISING NOTED; PHOTOS TAKEN AND PLACED IN CHART; ADMISSION COMPLETE EXCEPT FOR MED REC; PATIENT UNSURE OF SOME MEDICATIONS; WILL BRING IN LIST FROM HOME. AFIB ON TELE WITH RATE 90-100'S; OXYGEN SATURATION ABOVE 90% ON 4LPM OR BIPAP W/ 5LPM BLEED IN. PATIENT HAS DYSPNEA WITH ACTIVITY; UNABLE TO LAY FLAT FOR MORE THAN A MINUTE OR TWO. PATIENT URINATES INTO URINAL; ABOUT 50ML AT A TIME; UTI. PATIENT CURRENTLY RESTING IN BED; CALL LIGHT IN REACH; BED IN LOWEST POSISTION; WILL CONTINUE TO MONITOR AND ASSESS UNTIL END OF SHIFT.
--- NOTE | 2019-06-03 02:25 | NUR ---
HALLEY LAGUNA CALLED ABOUT BLADDER SCAN; PATIENT'S VERY EXCORIATED; REPORTS HE HAS BEEN; USES NYSTATIN POWDER AT HOME AND PATIENT REPORTS IT DOESNT WORK. BLADDER SCAN SHOWS 224; PATIENT LAST URINATED 2.5 HOURS AGO. HALLEY LAGUNA TO PUT IN ORDERS FOR NYSTATIN CREAM. NO OTHER ACUTE CHANGES TO REPORT. WILL CONTINUE TO MONITOR AND ASSESS UNTIL END OF SHIFT.
[2019-06-03 04:14] LABS: Hematocrit 37.2 % (37.0-53.0); Mean Corpuscular HGB 29.9 pg (26.0-34.0); Mean Corpuscular HGB Conc 32.3 g/dL (31.5-36.5); Mean Corpuscular Volume 93 fL (80-100); Mean Platelet Volume 11.3 fL (9.1-12.4); Platelet Count 149 K/mm3 (150-400); RDW Coefficient Variation 14.9 % (11.7-14.2); RDW Standard Deviation 51.1 fL (35.1-46.3); Red Blood Cell Count 4.02 M/mm3 (4.30-5.90); White Blood Cell Count 24.04 K/mm3 (4.00-11.30)
[2019-06-03 04:42] LABS: Anion Gap 8 mmol/L (6-16); Blood Urea Nitrogen 16 mg/dL (8-24); Bun/Creatinine Ratio 24.5 (12.0-20.0); CO2, Blood 31 mmol/L (21-32); Calcium, Blood 8.1 mg/dL (8.5-10.1); Chloride, Blood 97 mmol/L (98-108); Creatinine, Blood 0.65 mg/dL (0.60-1.20); Glomerular Filtration Rate >60 (60-); Glucose, Blood 151 mg/dL (70-99); Potassium, Blood 3.8 mmol/L (3.5-5.5); Sodium, Blood 136 mmol/L (136-145)
--- NOTE | 2019-06-03 06:19 | NUR ---
NO ACUTE CHANGES TO REPORT. PATIENT SLEPT ABOUT SIX HOURS SINCE ARRIVAL. WILL CONTINUE TO MONITOR AND ASSESS UNTIL END OF SHIFT.
--- NOTE | 2019-06-03 08:03 | NUR ---
Dr. Peterson here to see the patient. Isiah is sitting up eating breakfast at this time. Appears in no distress speaking full sentences easily.
--- NOTE | 2019-06-03 10:26 | NUR ---
Bladder scan was done a few minutes after the ELECTRICAL ASSEMBLER reported that the pt had voided about 200cc. The pt attempted to void (he said he felt like he needed to) but was unable to void just before the bladder scan. Scan showed 485 cc in bladder. About 10 minutes later the pt was able to void 200 cc of clear yellow urine. He reports some burning with urination. STates that last admission he had a joseph catheter placed because he was on bedrest, and that during transfer from the bed to the chair the joseph was accidentally pulled out, which caused a lot of bleeding. States that bladder irrigation was done, but no other intervention was needed.
--- NOTE | 2019-06-03 13:25 | NUR ---
Isiah states that his breathing is back to normal now. He is voiding 100-250 cc at a time, c/o burning with urination. Bladder scans were changed to PRN from scheduled q 6 hours. Pyridium was ordered by Dr. Peterson to help with discomfort. Oxygen delivery was weaned from 4 l/min to 3 l/min. At baseline, the pt uses 2 l/min nasal cannula and also with his home bipap. He is working with OT and PT today, but not strong enough to complete transfers to the chair or the BSC. States that since he fell at home, he just hasn't the strength like he had before. Bruising on his left inner thigh noted without hematoma, and also 3 scabs on his knee which the pt described as "rug hardin" from falling. Appetite good; had 2 bowel movements today.
[2019-06-03] MEDS ORDERED: LEVO750 PO (13:56)
[2019-06-03] MEDS ORDERED: Cephalexin500 MG PO (13:56)
[2019-06-03] MEDS ORDERED: Nyamyc15 GM TOP (13:57)
[2019-06-03] MEDS ORDERED: Sudogest60 MG PO (13:58)
--- NOTE | 2019-06-03 22:19 | NUR ---
ASSUMED CARE OF PATIENT AT APPROXIMATELY 1905 FROM DAISHA Cooper RN. PATIENT DENIES PAIN, NUMBNESS, TINGLING, DIZZINESS AND NAUSEA; PATIENT HAS RIGHT BKA; PATIENT REPORTS THAT HE USES A MOTORIZED W/C AT BASELINE; REPORTS FALL IN PAST FEW WEEKS; PATIENT HAS BEEN IN BED SINCE START OF SHIFT; USES URINAL IN BED; INCREASED URINE OUTPUT; ORANGE COLORED D/T MEDICATION. PATIENT IS MEDICAL NO TELE STATUS; WAS IN AFIB; OXYGEN SATURATION ABOVE 90% ON 2.5 LPM OR BIPAP W/ 3LPM BLEED IN. PATIENT HAS DYSPNEA WITH EXCERTION; APPEARS TO BE LESS SOB TODAY. PIV S/L. PATIENT CURRENTLY RESTING IN BED; CALL LIGHT IN REACH; BED IN LOWEST POSISTION; WILL CONTINUE TO MONITOR AND ASSESS UNTIL END OF SHIFT.
[2019-06-04 03:51] LABS: BASOPHILS ABSOLUTE AUTO 0.03 K/mm3 (0.00-0.23); BASOPHILS PERCENT AUTO 0 % (0-2); EOSINOPHILS PERCENT AUTO 1 % (0-6); Hematocrit 36.2 % (37.0-53.0); Hemoglobin 11.7 g/dL (13.5-17.5); IMMATURE GRAN ABSOLUTE AUTO 0.14 K/mm3 (0.00-0.10); IMMATURE GRAN PERCENT AUTO 1 % (0-1); LYMPHOCYTES ABSOLUTE AUTO 0.61 K/mm3 (0.84-5.20); LYMPHOCYTES PERCENT AUTO 4 % (21-46); MONOCYTES ABSOLUTE AUTO 0.96 K/mm3 (0.16-1.47); MONOCYTES PERCENT AUTO 6 % (4-13); Mean Corpuscular HGB 29.5 pg (26.0-34.0); Mean Corpuscular HGB Conc 32.3 g/dL (31.5-36.5); Mean Corpuscular Volume 91 fL (80-100); Mean Platelet Volume 11.1 fL (9.1-12.4); NEUTROPHILS ABSOLUTE AUTO 13.34 K/mm3 (1.96-9.15); NEUTROPHILS PERCENT AUTO 87 % (41-73); Platelet Count 170 K/mm3 (150-400); RDW Coefficient Variation 14.9 % (11.7-14.2); RDW Standard Deviation 49.6 fL (35.1-46.3); Red Blood Cell Count 3.97 M/mm3 (4.30-5.90); White Blood Cell Count 15.28 K/mm3 (4.00-11.30)
[2019-06-04 04:06] LABS: Anion Gap 7 mmol/L (6-16); Blood Urea Nitrogen 29 mg/dL (8-24); Bun/Creatinine Ratio 32.2 (12.0-20.0); CO2, Blood 32 mmol/L (21-32); Calcium, Blood 8.1 mg/dL (8.5-10.1); Chloride, Blood 97 mmol/L (98-108); Glomerular Filtration Rate >60 (60-); Glucose, Blood 144 mg/dL (70-99); Potassium, Blood 3.3 mmol/L (3.5-5.5); Sodium, Blood 136 mmol/L (136-145)
--- NOTE | 2019-06-04 06:07 | NUR ---
PATIENT SLEPT ABOUT NINE HOURS LAST NIGHT; BIPAP IN PLACE. SBP IN 90'S. PASS ONTO DAYSHIFT RN K+ 3.3 THIS AM. WILL CONTINUE TO MONITOR AND ASSESS UNTIL END OF SHIFT.
[2019-06-04] MEDS ORDERED: Zantac150 MG PO (08:58)
--- NOTE | 2019-06-04 09:06 | NUR ---
Medication list from [facility] states allergy to KEREN inhibitors. Confirmed with his that he had tongue swelling when he was prescribed an KEREN inhibitor in the past. Called this information to Dr. Peterson and also reported holding lasix due to low blood pressure this morning.
[2019-06-04 12:03] LABS: Adenovirus F 40/41 Not Detected (NOT DETECT); Astrovirus Not Detected (NOT DETECT); Campylobacter Sp Not Detected (NOT DETECT); Cryptosporidium Not Detected (NOT DETECT); Cyclospora Cayetanensis Not Detected (NOT DETECT); E. Coli O157 Not Detected (NOT DETECT); Entamoeba Histolytica Not Detected (NOT DETECT); Enteroaggregative E. coli-EAEC Not Detected (NOT DETECT); Enteropathogenic E. coli-EPEC Not Detected (NOT DETECT); Enterotoxigenic E. coli-ETEC Not Detected (NOT DETECT); Giardia Lamblia Not Detected (NOT DETECT); Norovirus GI/GII Not Detected (NOT DETECT); Plesiomonas Shigelloides Not Detected (NOT DETECT); Salmonella Sp Not Detected (NOT DETECT); Shiga Toxin-prod E. coli-STEC Not Detected (NOT DETECT); Shigella/Enteroin E. coli-EIEC Not Detected (NOT DETECT); Vibrio Cholerae Not Detected (NOT DETECT); Vibrio Sp Not Detected (NOT DETECT); Yersinia Enterocolitica Not Detected (NOT DETECT)
[2019-06-04 12:04] LABS: Rotavirus A Not Detected (NOT DETECT); Sapovirus Not Detected (NOT DETECT)
--- NOTE | 2019-06-04 14:04 | NUR ---
Isiah reports a lot of belching and nausea following lunchtime meal. Emesis of 100cc clear yellow liquid. Zofran was given, but no relief yet.
--- NOTE | 2019-06-04 15:35 | NUR ---
Isiah continues to c/o acid reflux and small amounts of emesis. Requesting diet tommy mist which was provided to him at this time.
--- NOTE | 2019-06-04 16:13 | NUR ---
Telephone report given to TAYLER Tirado; anticipate transfer to medical floor room 354.
--- NOTE | 2019-06-04 16:52 | NUR ---
Isiah stated relief after taking protonix as well as Maalox. Blood sugar was checked per orders before transfer of pt to room 354. Taken by Francheska Borden and Jerrica Kelly to the medical floor.
--- NOTE | 2019-06-04 18:21 | NUR ---
SHIFT SUMMARY PATIENT TRANSFERRED TO THE FLOOR IN THE 1600 HOUR. NO ACUTE CONCERNS AT THIS TIME. HE IS PLEASANT. DOES NOTE THAT HIS LUNCH MADE HIS STOMACH UPSET. CURRENTLY HE IS HAPPY IN HIS ROOM AND CALLS APPROPRIATELY.
--- NOTE | 2019-06-05 04:25 | NUR ---
SHIFT SUMMARY: 79 Y/O OBESE MALE RESTED COMFORTABLY ALL SHIFT WHILE WEARING BIPAP, HAPPY AND COOPERATIVE, ALERT AND ORIENTED X 4, VOIDING ORANGE TINGED URINE (TAKING PYRIDIUM CURRENTLY), DENIES PAIN OR NAUSEA, BED LOW POSITION, CALL LIGHT AT SIDE.
[2019-06-05 04:40] LABS: BASOPHILS ABSOLUTE AUTO 0.03 K/mm3 (0.00-0.23); BASOPHILS PERCENT AUTO 0 % (0-2); EOSINOPHILS ABSOLUTE AUTO 0.28 K/mm3 (0.00-0.68); EOSINOPHILS PERCENT AUTO 3 % (0-6); Hematocrit 33.1 % (37.0-53.0); Hemoglobin 10.4 g/dL (13.5-17.5); IMMATURE GRAN ABSOLUTE AUTO 0.06 K/mm3 (0.00-0.10); IMMATURE GRAN PERCENT AUTO 1 % (0-1); LYMPHOCYTES ABSOLUTE AUTO 0.62 K/mm3 (0.84-5.20); LYMPHOCYTES PERCENT AUTO 7 % (21-46); MONOCYTES ABSOLUTE AUTO 0.63 K/mm3 (0.16-1.47); MONOCYTES PERCENT AUTO 7 % (4-13); Mean Corpuscular HGB 29.3 pg (26.0-34.0); Mean Corpuscular HGB Conc 31.4 g/dL (31.5-36.5); Mean Corpuscular Volume 93 fL (80-100); Mean Platelet Volume 11.2 fL (9.1-12.4); NEUTROPHILS ABSOLUTE AUTO 7.58 K/mm3 (1.96-9.15); NEUTROPHILS PERCENT AUTO 83 % (41-73); Platelet Count 187 K/mm3 (150-400); RDW Coefficient Variation 14.7 % (11.7-14.2); RDW Standard Deviation 51.3 fL (35.1-46.3); Red Blood Cell Count 3.55 M/mm3 (4.30-5.90)
[2019-06-05 04:54] LABS: Anion Gap 3 mmol/L (6-16); Blood Urea Nitrogen 38 mg/dL (8-24); CO2, Blood 36 mmol/L (21-32); Calcium, Blood 8.5 mg/dL (8.5-10.1); Chloride, Blood 97 mmol/L (98-108); Creatinine, Blood 0.75 mg/dL (0.60-1.20); Glomerular Filtration Rate >60 (60-); Glucose, Blood 117 mg/dL (70-99); Magnesium, Blood 1.8 mg/dL (1.6-2.4); Phosphorus, Blood 2.4 mg/dL (2.5-4.9); Potassium, Blood 3.9 mmol/L (3.5-5.5); Sodium, Blood 136 mmol/L (136-145)
--- NOTE | 2019-06-05 16:12 | NUR ---
ATTEMPTED TO VISIT. PT WITH RT FIRST TIME. USING URINAL SECOND TIME. REPORTS HE'D PREFER NOT TO VISIT TODAY WHEN I RETURNED AGAIN.
--- NOTE | 2019-06-05 17:27 | NUR ---
SHIFT SUMMARY PATIENT PLEASANT. PLACED IN ISOLATION TODAY FOR HIS URINE TESTING POSITIVE FOR ESBL. CURRENTLY THE PATIENT HAS BEEN EDUCATED AND ALL QUESTIONS HAVE BEEN ANSWERED. PATIENT WAS ABLE TO TRANSFER HIMSELF INDEPENDENTLY BACK TO BED AFTER HE HAD GONE FOR XRAY. HE IS EATING AND DRINKING WELL TODAY COMPARED TO YESTERDAY.
--- NOTE | 2019-06-06 01:05 | NUR ---
0100 PT VOICED NAUSEA FEELING, ZOFRAN 4MG IVP GIVEN WITH RELIEF FELT.
--- NOTE | 2019-06-06 03:06 | NUR ---
PT HAD LARGE CLEAR EMESIS, PT RECEIVED ZOFRAN 4MG AT 0100 (PRN Q6 HOURS), PT FEELS BETTER AFTER EMESIS AND WOULD LIKE TRY AND REST, WILL CONTINUE TO MONITOR.
--- NOTE | 2019-06-06 04:22 | NUR ---
SHIFT SUMMARY: 79 Y/O MALE RESTED COMFORTABLY ALL SHIFT WHILE RESTING IN HIGH FOWLERS POSITION WHILE WEARING BIPAP ALL NIGHT WITH CONTINUOUS O2 MONITOR AT 91%, PT REQUIRED ONE NEBULIZER TREATMENT THIS SHIFT AFTER C/O SLIGHT DYPSNEA, PT HAD ONE EPISODE MODERATE AMOUNT CLEAR EMESIS, ZOFRAN 4MG IVP GIVEN WITH RELIEF FELT, ABLE TO ASSIST WITH REPOSITIONING IN BED, ALERT AND ORIENTED X 4, DENIES PAIN, BED ALARM APPLIED, BED LOW POSITION, CALL LIGHT AT SIDE, CONTACT ISOLATION MAINTAINED DUE ESBL IN URINE.
[2019-06-06 05:17] LABS: BASOPHILS ABSOLUTE AUTO 0.03 K/mm3 (0.00-0.23); BASOPHILS PERCENT AUTO 0 % (0-2); EOSINOPHILS ABSOLUTE AUTO 0.14 K/mm3 (0.00-0.68); EOSINOPHILS PERCENT AUTO 1 % (0-6); Hematocrit 29.4 % (37.0-53.0); Hemoglobin 9.2 g/dL (13.5-17.5); IMMATURE GRAN ABSOLUTE AUTO 0.11 K/mm3 (0.00-0.10); IMMATURE GRAN PERCENT AUTO 1 % (0-1); LYMPHOCYTES PERCENT AUTO 6 % (21-46); MONOCYTES ABSOLUTE AUTO 0.68 K/mm3 (0.16-1.47); MONOCYTES PERCENT AUTO 5 % (4-13); Mean Corpuscular HGB 29.3 pg (26.0-34.0); Mean Corpuscular HGB Conc 31.3 g/dL (31.5-36.5); Mean Corpuscular Volume 94 fL (80-100); Mean Platelet Volume 11.5 fL (9.1-12.4); NEUTROPHILS ABSOLUTE AUTO 10.82 K/mm3 (1.96-9.15); NEUTROPHILS PERCENT AUTO 87 % (41-73); Platelet Count 251 K/mm3 (150-400); RDW Coefficient Variation 14.6 % (11.7-14.2); Red Blood Cell Count 3.14 M/mm3 (4.30-5.90); White Blood Cell Count 12.48 K/mm3 (4.00-11.30)
[2019-06-06 05:30] LABS: Anion Gap 7 mmol/L (6-16); Blood Urea Nitrogen 44 mg/dL (8-24); Bun/Creatinine Ratio 49.9 (12.0-20.0); CO2, Blood 34 mmol/L (21-32); Calcium, Blood 8.8 mg/dL (8.5-10.1); Chloride, Blood 97 mmol/L (98-108); Creatinine, Blood 0.88 mg/dL (0.60-1.20); Glomerular Filtration Rate >60 (60-); Glucose, Blood 216 mg/dL (70-99); Magnesium, Blood 1.7 mg/dL (1.6-2.4); Phosphorus, Blood 3.8 mg/dL (2.5-4.9); Potassium, Blood 4.9 mmol/L (3.5-5.5); Sodium, Blood 138 mmol/L (136-145)
--- NOTE | 2019-06-06 06:02 | NUR ---
0515 PT INCONTINENT LARGE AMOUNT BLACK LOOSE STOOL (SMELLED LIKE GI BLEED), ENTIRE LINEN, GOWN CHANGED AND PATIENT CLEANED UP, HG 9.2 TODAY (HG 10.4 ON 06/05/19), GLUCOSE 222, ALERT AND ORIENTED X 4, CHEERFUL, DENIES PAIN OR NAUSEA.
--- NOTE | 2019-06-06 10:34 | NUR ---
TRANSFER TO ICU PT HAD LARGE BLACK TARRY BOWEL MOVEMENT. BP CHECKED DECREASED TO 84/53, PT ASYMPTOMATIC OF LOW BP. DR. FELTON NOTIFIED BY PROMOTIONS TEAM LEADERTAYLER HATCH. PT TACHYCARDIC. REPORT CALDWELL TO RUFUS LESTER IN ICU. PT TRANSFERRED TO ICU AT APPROXIMATELY 1020. PT ALERT AND ORIENTED AT TIME OF TRANSFER.
[2019-06-06 11:01] LABS: Hematocrit 24.2 % (37.0-53.0); Hemoglobin 7.5 g/dL (13.5-17.5)
--- NOTE | 2019-06-06 11:42 | NUR ---
Recieved report from Med RN and patient was reansfered to ICU 11. He was a 5 person slide tranfer to bed. he was alert and oriented and was communicated his needs. He states very tired and falls asleep quickly. Started two new IV's, 18ga IV LFA and 18ga IV RFA. Gave 80mg Protonix and started Protonix gtt, NS at 125ml/hr, Reglan 10mg. Dr Caruso here and orders written and administered. He will be gettin two units PRBC's.
--- NOTE | 2019-06-06 12:30 | NUR ---
Scope is getting ready to start and Placed PICC TAI emergent and started higher dose of Levophed and increaded to 15mcg prior to procedure. Both units in and will be requesting for third unit PRBC post procedure. Dr Caruso in room.
--- NOTE | 2019-06-06 13:20 | NUR ---
06/06/19 1320 Fer Hood 3-LEAD EKG REVIEWED WITH PHYSICIAN PRIOR TO START OF PROCEDURE.PATIENT CONFIRMS NPO STATUS AND AGREES WITH SCHEDULED PROCEDURE. History, Chart, Medications and Allergies reviewed before start of procedure. MONITOR INTACT WITH CONTINUOUS PULSE OXIMETRY AND INTERMITTENT BP. O2 VIA N/C INTACT THROUGHOUT SEDATION/PROCEDURE. Bite Block Placed
--- NOTE | 2019-06-06 15:40 | NUR ---
Procedure done and Levophed by end of procedure increased to 30mcg/min and [id number] Luciano to 25mcg/min. Procedure ended 1358. The third unit PRBC continues to infuse. He is currently alert and oriented and is able to communicate his needs. He denies any current pain. He has used urinal twice without assist. He is sitting up watching TV.
[2019-06-06 17:39] LABS: Anion Gap 4 mmol/L (6-16); Blood Urea Nitrogen 43 mg/dL (8-24); Bun/Creatinine Ratio 53.3 (12.0-20.0); CO2, Blood 34 mmol/L (21-32); Calcium, Blood 8.1 mg/dL (8.5-10.1); Chloride, Blood 98 mmol/L (98-108); Creatinine, Blood 0.81 mg/dL (0.60-1.20); Glomerular Filtration Rate >60 (60-); Glucose, Blood 188 mg/dL (70-99); Magnesium, Blood 1.5 mg/dL (1.6-2.4); Potassium, Blood 4.6 mmol/L (3.5-5.5); Sodium, Blood 136 mmol/L (136-145)
--- NOTE | 2019-06-06 17:53 | NUR ---
Patient has lonnie sleeping and awakens for care and is clear. called and gave update. he remains on 25mcg/min levophed and maintians systolics low 100's and MAPS >60. He is on 3L O2 and sats 97%.
--- NOTE | 2019-06-06 18:34 | NUR ---
Dr Luciano by to check patient, we reduced Levophed to 20mcg/min and systolic low 100, MAP >60. No other changes from last note.
--- NOTE | 2019-06-06 19:15 | NUR ---
ASSUMED CARE PT SITTING UP IN BED A&O X 4 & WATCHING TV S/P EGD TODAY WITH CLIP, CAUTERIZATION AND EPI INJECTION FOR BLEED CONTROL. PT REPORTS HE IS FEELING MUCH BETTER SINCE ADMIT AND DENIES PAIN. PICC PLACED TO TAI TODAY WITH LEVOPHED AT 20MCG/MIN, NS AT 125ML/HR AND PROTONIX AT 10ML/HR. PLAN TO TITRATE LEVO DOWN MAP TOLERATES. ECG SHOWS AFIB, O2 SATS 96% ON 2L/NC.
--- NOTE | 2019-06-06 21:01 | NUR ---
DR BAÑUELOS CALLED DR REVIEWED LABS AT HOME, ORDERED MAG, REVIEWED CURRNENT PRESSOR RATE OF 16MCG/MIN AND NS AT 125ML/HR. ORDER TO STOP IV FLUIDS ONCE LEVOPHED TITRATED OFF.
[2019-06-07 03:41] LABS: BASOPHILS ABSOLUTE AUTO 0.03 K/mm3 (0.00-0.23); BASOPHILS PERCENT AUTO 0 % (0-2); EOSINOPHILS ABSOLUTE AUTO 0.38 K/mm3 (0.00-0.68); EOSINOPHILS PERCENT AUTO 5 % (0-6); Hematocrit 26.9 % (37.0-53.0); Hemoglobin 8.8 g/dL (13.5-17.5); IMMATURE GRAN ABSOLUTE AUTO 0.29 K/mm3 (0.00-0.10); IMMATURE GRAN PERCENT AUTO 4 % (0-1); LYMPHOCYTES ABSOLUTE AUTO 0.74 K/mm3 (0.84-5.20); LYMPHOCYTES PERCENT AUTO 9 % (21-46); MONOCYTES ABSOLUTE AUTO 0.65 K/mm3 (0.16-1.47); MONOCYTES PERCENT AUTO 8 % (4-13); Mean Corpuscular HGB Conc 32.7 g/dL (31.5-36.5); Mean Corpuscular Volume 92 fL (80-100); Mean Platelet Volume 10.9 fL (9.1-12.4); NEUTROPHILS ABSOLUTE AUTO 6.03 K/mm3 (1.96-9.15); NEUTROPHILS PERCENT AUTO 74 % (41-73); Platelet Count 198 K/mm3 (150-400); RDW Coefficient Variation 14.7 % (11.7-14.2); Red Blood Cell Count 2.93 M/mm3 (4.30-5.90); White Blood Cell Count 8.12 K/mm3 (4.00-11.30)
[2019-06-07 04:03] LABS: Alanine Aminotransfer (ALT/SGP 23 U/L (12-78); Albumin, Blood 1.8 g/dL (3.4-5.0); Albumin/Globulin Ratio 0.6 (0.8-1.8); Alk Phos 37 U/L (50-136); Anion Gap 4 mmol/L (6-16); Aspartate Aminotrans (AST/SGOT 11 U/L (12-37); Bilirubin, Total 0.6 mg/dL (0.1-1.0); Blood Urea Nitrogen 33 mg/dL (8-24); Bun/Creatinine Ratio 44.2 (12.0-20.0); CO2, Blood 35 mmol/L (21-32); Calcium, Blood 7.8 mg/dL (8.5-10.1); Chloride, Blood 101 mmol/L (98-108); Creatinine, Blood 0.75 mg/dL (0.60-1.20); Globulin, Blood 2.9 g/dL (2.2-4.0); Glomerular Filtration Rate >60 (60-); Glucose, Blood 170 mg/dL (70-99); Potassium, Blood 4.1 mmol/L (3.5-5.5); Sodium, Blood 140 mmol/L (136-145); Total Protein, Blood 4.7 g/dL (6.4-8.2)
[2019-06-07 05:31] LABS: Stool Occult Blood Guaiac 1 Pos (Neg)
--- NOTE | 2019-06-07 06:07 | NUR ---
SHIFT SUMMARY PT REMAINS ON LEVOPHED, TITRATED DOWN FROM 20MCG TO 8MCG/MIN OVERNIGHT TO MAINTAIN MAPS >60. NS AT 125ML/HR- UNABLE TO TURN OFF SINCE LEVOPHED STILL INFUSING AND PROTONIX AT 10ML/HR. PT HAS HAD NO FUTHER STOOLS OR OVERT SIGNS OF BLEEDING SINCE EGD AND PT CONTINUES TO REPORT FEELING BETTER. ECG SHOWS AFIB WITH OCCASIONAL PVC'S, O2 SATS >90 ON CPAP W/ 6L BLEED IN. WHILE AWAKE PT TOLERATED 2L/NC BUT HAD TO INCREASE TO MAINTAIN O2 SATS OF 90.
--- NOTE | 2019-06-07 07:30 | NUR ---
ASSUMED CARE OF PATIENT; SEE ASSESSMENT CHARTING FOR DETAILS. PATIENT SLEEPING BUT AROUSES TO VERBAL STIMULI; A/O X4; DENIES ACUTE DISCOMFORT. MONITOR REMAINS ATRIAL FIB/FLUTTER; RATE LOW 100'S. SBP LOW; INCREASED LEVOPHED DRIP FROM 8MCG/MIN TO 10MCG/MIN. PROTONIX DRIP REMAINS AT 10CC/HR AND NS REMAINS AT 125ML/HR. VOIDING SMALL/FREQUENT AMOUNTS OF ORANGISH/SARAH URINE (ON PYRIDIUM). CPAP IN PLACE WITH 6L/MIN BLEED IN; BIOX. 95%. SCD'S OFF; WILL REPLACE. CBG 158; NO SS COVERAGE INDICATED.
--- NOTE | 2019-06-07 08:05 | NUR ---
LEVOPHED DRIP REDUCED TO 9MCG/MIN; SBP 90'S TO LOW 100'S.
--- NOTE | 2019-06-07 08:49 | NUR ---
OCCUPATIONAL THERAPIST, AMIRA, MICHAEL; WORKING WITH PATIENT. RN REDUCED LEVOPHED DRIP TO 7MCG/MIN D/T SBP 103.
--- NOTE | 2019-06-07 09:00 | NUR ---
LEVOPHED DRIP REDUCED TO 6MCG/MIN.
[2019-06-07 16:13] LABS: Hematocrit 26.5 % (37.0-53.0); Hemoglobin 8.6 g/dL (13.5-17.5)
--- NOTE | 2019-06-07 16:43 | NUR ---
DR. DOWNING (GI) HERE; WANTS PATIENT TO REMAIN ON CLEAR LIQUIDS THROUGH THE NIGHT; IF STATUS STABLE MAY ADVANCE TO FULL LIQUIDS FOR BREAKFAST.
--- NOTE | 2019-06-07 18:30 | NUR ---
SUMMARY: NO PAIN; PLEASANT, COOPERATIVE AND ORIENTED. WATCHING TV AND ABLE TO ADJUST CHANNELS, FEED SELF, TALK ON PHONE ETC. EPISODE OF RESP. DISTRESS AND NEED FOR CPAP AFTER THERAPIES HAD WORKED WITH PATIENT, ETC; FELT ANXIOUS AND DYSPNEIC. R.T. NOTIFIED AND GAVE UDN TX. BACK ON 4L/NC WITH IN A 1/2 HOUR. VOIDING FREQUENTLY D/T DIURETIC TX. SBP 80'S MOST OF AFTERNOON; INCREASED LEVOPHED DRIP FROM 2MCG/MIN TO 3MCG/MIN D/T SBP DROPPING DOWN IN THE 70'S. TOLERATING CL DIET; NO GI UPSET. OVERALL STATUS IMPROVED.
--- NOTE | 2019-06-07 19:30 | NUR ---
[place] of Care: Patient alert and oriented x4, sitting upright in bed watching TV. Denies dyspnea/SOB, appears calm and comfortable, O2- 89-94% on 5L/NC. VSS, heart rhythm shows A-fib, rate 100-110, systolic BP 90's-low 100's, levophed gtt infusing at 3mcg/min. Protonix gtt at 10ml/hr, and NS at TKO also infusing. PICC line to TAI patent and intact, infusing without difficulty. Peripheral IV to rt forearm patent and intact, SL. Voiding using urinal in bed without difficulty. Call light in reach, makes needs known, adjust own position in bed. Will continue to monitor for pain, safety, comfort.
[2019-06-08 04:28] LABS: BASOPHILS ABSOLUTE AUTO 0.04 K/mm3 (0.00-0.23); BASOPHILS PERCENT AUTO 1 % (0-2); EOSINOPHILS ABSOLUTE AUTO 0.47 K/mm3 (0.00-0.68); EOSINOPHILS PERCENT AUTO 6 % (0-6); Hematocrit 25.3 % (37.0-53.0); Hemoglobin 8.3 g/dL (13.5-17.5); IMMATURE GRAN PERCENT AUTO 4 % (0-1); LYMPHOCYTES ABSOLUTE AUTO 0.78 K/mm3 (0.84-5.20); LYMPHOCYTES PERCENT AUTO 10 % (21-46); MONOCYTES ABSOLUTE AUTO 0.61 K/mm3 (0.16-1.47); MONOCYTES PERCENT AUTO 8 % (4-13); Mean Corpuscular HGB 30.4 pg (26.0-34.0); Mean Corpuscular HGB Conc 32.8 g/dL (31.5-36.5); Mean Corpuscular Volume 93 fL (80-100); Mean Platelet Volume 10.6 fL (9.1-12.4); NEUTROPHILS ABSOLUTE AUTO 5.91 K/mm3 (1.96-9.15); NEUTROPHILS PERCENT AUTO 73 % (41-73); Platelet Count 235 K/mm3 (150-400); RDW Coefficient Variation 14.6 % (11.7-14.2); RDW Standard Deviation 49.1 fL (35.1-46.3); Red Blood Cell Count 2.73 M/mm3 (4.30-5.90); White Blood Cell Count 8.11 K/mm3 (4.00-11.30)
[2019-06-08 04:42] LABS: Anion Gap 3 mmol/L (6-16); Blood Urea Nitrogen 19 mg/dL (8-24); Bun/Creatinine Ratio 26.2 (12.0-20.0); CO2, Blood 38 mmol/L (21-32); Calcium, Blood 7.5 mg/dL (8.5-10.1); Chloride, Blood 99 mmol/L (98-108); Creatinine, Blood 0.73 mg/dL (0.60-1.20); Glomerular Filtration Rate >60 (60-); Glucose, Blood 161 mg/dL (70-99); Magnesium, Blood 1.5 mg/dL (1.6-2.4); Phosphorus, Blood 2.3 mg/dL (2.5-4.9); Potassium, Blood 3.7 mmol/L (3.5-5.5); Sodium, Blood 140 mmol/L (136-145)
--- NOTE | 2019-06-08 06:10 | NUR ---
Shift Summary: Patient slept well throughout shift. Continues to deny dyspnea/SOB, O2-92-94% on 4-5L/NC, or 5LPM bleed in to CPAP mask while sleeping. C/o lt chest pleural pain with deep breath, and c/o phantom limb pain effectively managed with prn Tylenol x2. No further c/o pain/discomfort. Levophed gtt titrated up to 6mcg/min then back down to 4mcg/min throughout shift. PICC to TAI remains patent and intact, infusing without difficulty. Voiding using urinal in bed without difficulty. 2g Magnesium Sulfate, and 20mm potassium phosphate wrote this morning per electrolyte replacement therapy. Call light in reach, makes needs known. Will continue to monitor until report to day shift RN.
--- NOTE | 2019-06-08 07:20 | NUR ---
START OF SHIFT NOTE: RECEIVED REPORT FROM TRINI LEIJA RN, ASSUMED CARE, PATIENT IS AWAKE, ON CPAP WITH 5L O2 BLED IN, PATIENT DENIES PAIN, AFEBRILE, REPORTS THAT HE IS JUST TIRED, ON REPLACEMENT PROTOCOL FOR MAGNESIUM AND POTASSIUM PHOSPHATE, LEVOPHED AT 4, PROTONIX GTT INFUSING, PATIENT IS A+OX4, LUNG SOUNDS ARE CLEAR, A-FIB, WHICH IS CHRONIC, BOWEL TONES HYPOACTIVE, PATIENT IS ON FULL LIQUID DIET, USES URINAL, PATIENT HAS RIGHT LE AKA, BLOOD GLUCOSE 173, NO COVERAGE NEEDED, CALL LIGHT IN REACH, WILL CONTINUE TO MONITOR.
--- NOTE | 2019-06-08 09:14 | NUR ---
PATIENT IS DOING WELL, NO PROBLEM SWALLOWING AM MEDICATION, URINE ORANGE D/T PYRIDIUM, HUMIDIFIED O2 GIVEN D/T PATIENT HAVING A NOSE BLEED FROM NASAL CANNULA, REPORTS NO NEEDS AT THIS TIME, CALL LIGHT IN REACH, WILL CONTINUE TO MONITOR.
--- NOTE | 2019-06-08 11:52 | NUR ---
PATIENT UP TO CHAIR VIA CEILING LIFT WITH 2 ASSIST, PATIENT TOLERATED WELL, EATING LUNCH AFTER BG CHECK, NO COVERAGE NEEDED AT THIS TIME, CALL LIGHT IN REACH, WILL CONTINUE TO MONITOR.
--- NOTE | 2019-06-08 12:45 | NUR ---
OT IN TO WORK WITH PATIENT.
--- NOTE | 2019-06-08 14:13 | NUR ---
PT IN TO WORK WITH PATIENT, PATIENT STOOD AND THEN BACK TO CHAIR.
--- NOTE | 2019-06-08 14:49 | NUR ---
LEVOPHED WAS DECREASED AFTER SECOND DOSE OF MIDODRINE WAS GIVEN, PATIENT'S SBP IN 70'S, LEVOPHED INCREASED TO 6, WILL CONTINUE MONITORING.
--- NOTE | 2019-06-08 15:01 | NUR ---
PATIENT'S RACHEL ON PHONE, UPDATE ON PATIENT CONDITION PROVIDED.
--- NOTE | 2019-06-08 15:04 | NUR ---
DR. DELCID IN TO SEE PATIENT, UPDATE ON PATIENT CONDITION PROVIDED, NO NEW ORDERS RECEIVED.
--- NOTE | 2019-06-08 15:30 | NUR ---
PATIENT RETURNED TO BED FROM CHAIR VIA CEILING LIFT, TOLERATED WELL, BED BATH GIVEN AND GOWN AND LINEN CHANGED, PATIENT ABLE TO HELP WITH ROLLING FROM SIDE TO SIDE, NYSTATIN APPLIED IN SKIN FOLDS, ALSO NASAL MIST GIVEN ORDERED FOR CONGESTION AND O2 HAS BEEN HUMIDIFIED, DR. HOLCOMB IN TO SEE PATIENT, NO NEW ORDERS RECEIVED, CALL LIGHT IN REACH, WILL CONTINUE TO MONITOR.
--- NOTE | 2019-06-08 17:55 | NUR ---
SHIFT SUMMARY NOTE: NO ACUTE EVENTS DURING THIS SHIFT, PATIENT CONTINUES ON LEVOPHED AT 6, WAS DECREASED TO 3 AFTER SECOND ORAL DOSE OF MIDODRINE, BUT PATIENT'S BLOOD PRESSURE DROPPED TO 70'S/40'S, PROTONIX DRIP DISCONTINUED, NOW ON POR PROTONIX, DIET ADAVANCED TO MECHANICAL SOFT/ADA DIABETIC, PATIENT ATE WELL, O2 AT 5L NC WITH HUMIDIFICATION D/T NOSE BLEED EARLIER IN THIS SHIFT, ALSO ON NASAL MIST D/T CONGESTION, TAKES ALL PO MEDICATIONS WELL WITH WATER, NO PROBLEM SWALLOWING, GOOD URINE OUTPUT, PYRIDIUM DISCONTINUED, URINE CONTINUES TO BE ORANGE COLORED, PATIENT UP TO CHAIR VIA CEILING LIFT, WORKED WITH OT AND PT, WITH GOOD RESULTS, FOR DETAILS SEE SHIFT ASSESSMENT DOCUMENTATION AND NURSES NOTES, CALL LIGHT IN REACH, WILL CONTINUE TO MONITOR AND GIVE REPORT TO ONCOMING DIAL BUFFER.
--- NOTE | 2019-06-08 20:00 | NUR ---
ASSUMED CARE OF PT AT 1915. REPORT RECEIVED AT BEDSIDE. PT PRESENTS IN BED ALERT AND ORIENTED, PLEASANT AND COOPERATIVE WITH CARE AND ASSESSMENT. PT STATES HE WANTS TO WEAR CPAP THIS NIGHT. ASSISTED PT WITH SETUP. PT CONTINUES ON 6 MCG/KG/MIN. BLOOD PRESSURES ARE MAINTAINING AT 60-65. PT DENIES COMPLAINTS AT THIS TIME. WILL REVIEW CHART AND PLAN OF CARE FOR THIS PT.
--- NOTE | 2019-06-08 22:50 | NUR ---
PT CONTINUES AT 6 MCG'S/KG/KG ON LEVOPHED TO MAINTAIN > 60 MAP. NO COMPLAINTS OF DYSPNEA VOICED BY PT. DOES HAVE SOME 'BURPING' THAT HE SAYS STARTED BEFORE HE CAME TO HOSPITAL. NO S/S BLEEDING TO NOTE. WILL CONTINUE TO MONITOR.
--- NOTE | 2019-06-09 01:30 | NUR ---
HAVE WEANED LEVOPHED DOWN TO 4 MCG'S AND WILL CONTINUE TO ASSESS FOR ABILITY TO TITRATE FURTHER. IS MAINTAINING AT LEAST 60 FOR MAP. PT MEDICATED WITH TYLENOL FOR A HEADACHE, AND FOR 'PHANTOM' PAIN. WILL CONTINUE TO MONITOR. PT CONTINUES WITH OXYGEN SATURATIONS > 90 PERCENT.
[2019-06-09 04:26] LABS: BASOPHILS ABSOLUTE AUTO 0.02 K/mm3 (0.00-0.23); BASOPHILS PERCENT AUTO 0 % (0-2); EOSINOPHILS ABSOLUTE AUTO 0.35 K/mm3 (0.00-0.68); EOSINOPHILS PERCENT AUTO 5 % (0-6); Hematocrit 25.6 % (37.0-53.0); Hemoglobin 8.2 g/dL (13.5-17.5); IMMATURE GRAN ABSOLUTE AUTO 0.32 K/mm3 (0.00-0.10); IMMATURE GRAN PERCENT AUTO 5 % (0-1); LYMPHOCYTES ABSOLUTE AUTO 0.69 K/mm3 (0.84-5.20); LYMPHOCYTES PERCENT AUTO 10 % (21-46); MONOCYTES ABSOLUTE AUTO 0.51 K/mm3 (0.16-1.47); MONOCYTES PERCENT AUTO 7 % (4-13); Mean Corpuscular HGB 30.3 pg (26.0-34.0); Mean Corpuscular Volume 95 fL (80-100); Mean Platelet Volume 10.3 fL (9.1-12.4); NEUTROPHILS ABSOLUTE AUTO 5.09 K/mm3 (1.96-9.15); NEUTROPHILS PERCENT AUTO 73 % (41-73); Platelet Count 246 K/mm3 (150-400); RDW Coefficient Variation 14.5 % (11.7-14.2); RDW Standard Deviation 49.1 fL (35.1-46.3); Red Blood Cell Count 2.71 M/mm3 (4.30-5.90); White Blood Cell Count 6.98 K/mm3 (4.00-11.30)
--- NOTE | 2019-06-09 04:30 | NUR ---
PT WAS ABLE TO PIVOT TRANSFER WITH ONE PERSON MAX ASSIST TO BEDSIDE COMMODE. PT'S BLOOD PRESSURES MAINTAIN WNL WITH LEVOPHED ON STANDBY FOR PAST FEW HOURS. MAINTAINS SATURATIONS > 90 PERCENT WITH 4 L/M OXYGEN PER NASAL CANNULA. UNFORTUNATELY PT FATIQUES WHEN HE IS BEING TRANSFERRED BACK TO BED. PT UNABLE TO BEAR WEIGHT, AND NEEDS TO HAVE 3 PERSON ASSIST BACK TO BED. PT BECOMES VERY DYSPNEIC. DID INCREASE O2 FLOW TO 6 LITERS PER MINUTE, AND PLACE PERSONAL FAN AT PT'S REQUEST. NOTED WHEN PT WAS BACK TO BED HE HAD SMALL ABRASION TO HIS LEFT [place] AREA. TRANSPARENT MEPILEX PLACED OVER SITE TO CREATE A BARRIER. PT CURRENTLY BACK TO 4 L/M O2 PER NASAL CANNULA. HE REQUEST THAT HE STAY ON NASAL CANNULA FOR NOW.
[2019-06-09 04:42] LABS: Anion Gap 3 mmol/L (6-16); Blood Urea Nitrogen 15 mg/dL (8-24); Bun/Creatinine Ratio 23.1 (12.0-20.0); CO2, Blood 37 mmol/L (21-32); Calcium, Blood 7.8 mg/dL (8.5-10.1); Chloride, Blood 98 mmol/L (98-108); Creatinine, Blood 0.65 mg/dL (0.60-1.20); Glomerular Filtration Rate >60 (60-); Glucose, Blood 137 mg/dL (70-99); Magnesium, Blood 1.8 mg/dL (1.6-2.4); Phosphorus, Blood 2.3 mg/dL (2.5-4.9); Sodium, Blood 138 mmol/L (136-145)
--- NOTE | 2019-06-09 05:53 | NUR ---
PT SUCCESSFULY WAS WEANED OFF LEVOPHED DRIP. PT MAINTAINS > 90 PERCENT WITH O2 PER NASAL CANNULA. HAS SMALL VOIDS THAT ARE PYRIDIUM STAINED. HAS EXERTIONAL DYSPNEA WHEN UP TO BEDSIDE COMMODE. PT ACKNOWLEDGES THAT PHYSICAL THERAPY HAS BEEN SEEING HIM. IF PT NEEDS TO HAVE ADDITIONAL BM'S WILL USE BEDPAN TO DECREASE THE INCREASE IN EXERTIONAL DYSPNEA. WILL CONTINUE TO MONITOR PT, AND WILL REPORT OFF TO ONCOMING RN.
--- NOTE | 2019-06-09 10:48 | NUR ---
CARE ASSUMED, ASSESSMENT COMPLETED. PT AWAKE, PLEASANT AND COOPERATIVE, DENIES CP, SOB, NAUSEA, OR ABD DISCOMFORT. HR 90'S AFIB WITH BBB AND FREQUENT PVC'S, LS DIMINISHED AND TIGHT BUT CLEAR, SPO2 >90% ON 4L/NC. PT REPORTS LEFT SIDED PLEURITIC PAIN WITH DEEP INSPIRATION, STATES HE HAD BEEN COUGHING AT HOME PRIOR TO ARRIVAL. REPORTS CURRENT SOB IS BASELINE. PT VOIDING FREQUENTLY WITHOUT DIFFICULTY, DENIES URINARY SYMPTOMS. UIRINE ORANGE FROM PYRIDIUM. SCABS AND BRUISING NOTED TO LLE, PT REPORTS THEY ARE FROM FALL AT HOME ON 05/19/19, SKIN GROSSLY INTACT. PT TOLERATED BREAKFAST WITHOUT NAUSEA OR ABDOMINAL PAIN, DR. BAÑUELOS IN TO SEE PT, STATUS CHANGED TO PCU.
--- NOTE | 2019-06-09 12:45 | NUR ---
[facility]
--- NOTE | 2019-06-09 13:04 | NUR ---
PT GIVEN BED BATH, THEN UP TO CHAIR USING CEILING LIFT, TOLERATED WELL. VS REMAIN STABLE, HR AFIB RATE CONTROLLED, MAP'S >65. PT SAT UP IN CHAIR TO EAT LUNCH, TOLERATING FOOD WELL WITH NO C/O ABD PAIN/NAUSEA. NO STOOLS THIS SHIFT. SPO2 >90% ON 4L/NC, PT DENIES SOB GREATER THAN BASELINE, FINE EXPIRATORY WHEEZES NOTED AT TIMES. PT PLEASANT AND COOPERATIVE WITH CARE, DENIES PAIN OR C/O. REPORT CALLED TO DAISHA RN, PT TO PCU RM 10 AT 1245 WITH MEDICATIONS AND BELONGINGS.
--- NOTE | 2019-06-09 14:13 | NUR ---
Pt visit this afternoon. Pt is resting in bed upon arrival and appears dyspneic as evidenced by work of breathing and increased respiratory rate. Asked Pt if he would like a breathing treatment and Pt's is agreeable. PCU nurse is contacting repiratory therapy to administer breathing treatment. Pt denies pain at this time. Pt denies need for visit and states "I have visited with you before". Pt reports no concerns at this time. Spoke with bedside nurse Summer regarding attempted visit. Palliative Care will remain available.
--- NOTE | 2019-06-09 19:13 | NUR ---
summary The pt was received into PCU 10 this afternoon from ICU. Transferred to PCU in a recliner chair. He requested back to bed, which was done using the ceiling lift in the room. Had onetime complaint of phantom pain in his right aka stump, relieved with Tylenol. Became dyspneic after working with occupational therapist today, and needed a breathing tx for recovery following this. He has been wearing oxygen at 4 l/min n.c. delivery. Occasional moist cough, but no sputum production noted. Smear of brown stool noted upon transfer to the bed. NO other bowel movements today noted on PCU. Good appetite, and no other complaints or needs voiced by the patient. Using the urinal to void.
[2019-06-10 04:09] LABS: Hematocrit 24.5 % (37.0-53.0); Hemoglobin 7.8 g/dL (13.5-17.5); Mean Corpuscular HGB 30.5 pg (26.0-34.0); Mean Corpuscular HGB Conc 31.8 g/dL (31.5-36.5); Mean Corpuscular Volume 96 fL (80-100); Mean Platelet Volume 10.4 fL (9.1-12.4); Platelet Count 235 K/mm3 (150-400); RDW Coefficient Variation 14.7 % (11.7-14.2); RDW Standard Deviation 49.7 fL (35.1-46.3); Red Blood Cell Count 2.56 M/mm3 (4.30-5.90); White Blood Cell Count 6.71 K/mm3 (4.00-11.30)
[2019-06-10 04:32] LABS: BAND PERCENT MAN 4 % (0-8); BASOPHILS PERCENT MAN 0 % (0-2); EOSINOPHILS ABSOLUTE MAN 0.33 K/mm3 (0.00-0.68); EOSINOPHILS PERCENT MAN 5 % (0-6); LYMPHOCYTES ABSOLUTE MAN 0.46 K/mm3 (0.84-5.20); LYMPHOCYTES PERCENT MAN 7 % (21-46); MONOCYTES ABSOLUTE MAN 0.33 K/mm3 (0.16-1.47); MONOCYTES PERCENT MAN 5 % (4-13); MYELOCYTE ABSOLUTE MAN 0.26 K/mm3 (0.00-0.00); MYELOCYTE PERCENT MAN 4 % (0-0); SEG NEUTROPHILS PERCENT MAN 75 % (41-73); TOTAL CELLS COUNTED 100
--- NOTE | 2019-06-10 04:38 | NUR ---
Shift Summary Pt with no acute changes this shift. VSS. No apparent sign of distress. Pt sleeping on and off throughout shift, able to make needs known, uses call light appropriately, independantly manages CPAP. Pt remains alert and oriented. No changes to oxygen demand. No acute changes from initial shift assessment. Pt remains calm and cooperative with care. Voides using urinal in bed, denies pain for this RN this shift. No signs of active bleeding. Will continue to monitor and provide care until day RN assumes care.
--- NOTE | 2019-06-10 06:29 | NUR ---
Dr Alatorre notifed of low hgb of 7.8; orders recieved to continue to monitor pt and for repeat H&H at 1200. Orders placed per .
[2019-06-10 13:55] LABS: Hemoglobin 8.7 g/dL (13.5-17.5)
--- NOTE | 2019-06-10 14:23 | NUR ---
Following blood transfusion, the pt was assisted to bedside commode for a bowel movement and then to a recliner chair using the ceiling lift. He had a large loose black stool. He tolerated this well. Physical therapy working with the patient at this time.
--- NOTE | 2019-06-10 15:48 | NUR ---
Isiah tolerated sitting up in the chair visiting with his and a neighbor after his blood transfusion was comlete. States this afternoon that he feels like his breathing is much better. Oxygen delivery was weaned down from 4 l/min to 3 l/min as his spo2 was 97%.
--- NOTE | 2019-06-10 23:56 | NUR ---
Assumed care at approx 1915. Pt presents sitting in bed, denies pain, VSS, no apparent sign of distress. Pt breathing easy and unlabored on NC. Alert and oriented, uses call light appropriately to make needs known. Pt without complaints so far this shift. See shift assessment for detailed systems assessment. Will continue monitoring and providing care.
--- NOTE | 2019-06-11 01:48 | NUR ---
Pt with episodes of desaturations while sleeping. Pt 02 down to 83%. O2 up to 4.5L leak in to home BIPAP with o2 improvement to 93%. Pt remains alert and oriented; denies SOB. Will continue to monitor.
--- NOTE | 2019-06-11 05:03 | NUR ---
Shift Summary Pt with no acute changes this shift. Remains alert and oriented, VSS, no apparent sign of distress. Pt with mild desaturations noted with sleep this shift, oxygen increased to 4.5L. Since then, oxygen decreased back to 4L bleed in into BIPAP. Pt compliant with BIPAP. Calls appropriately, makes needs known, able to assist with repostions and boosts. Pt with no events on tele, denies SOB, denies chest pain, denies abd pain. Pt with no acute changes from initial shift assessment. Will continue to monitor and provide care until day RN assumes care.
[2019-06-11 06:24] LABS: Hematocrit 26.6 % (37.0-53.0); Hemoglobin 8.4 g/dL (13.5-17.5); Mean Corpuscular HGB 29.3 pg (26.0-34.0); Mean Corpuscular HGB Conc 31.6 g/dL (31.5-36.5); Mean Platelet Volume 10.3 fL (9.1-12.4); Platelet Count 248 K/mm3 (150-400); RDW Coefficient Variation 15.9 % (11.7-14.2); RDW Standard Deviation 51.3 fL (35.1-46.3); Red Blood Cell Count 2.87 M/mm3 (4.30-5.90); White Blood Cell Count 7.46 K/mm3 (4.00-11.30)
[2019-06-11 06:27] LABS: Mean Corpuscular Volume 93 fL (80-100)
[2019-06-11 06:37] LABS: Albumin, Blood 2.1 g/dL (3.4-5.0); Anion Gap 5 mmol/L (6-16); Blood Urea Nitrogen 12 mg/dL (8-24); Bun/Creatinine Ratio 17.7 (12.0-20.0); CO2, Blood 35 mmol/L (21-32); Calcium, Blood 8.2 mg/dL (8.5-10.1); Chloride, Blood 99 mmol/L (98-108); Creatinine, Blood 0.68 mg/dL (0.60-1.20); Glomerular Filtration Rate >60 (60-); Glucose, Blood 132 mg/dL (70-99); Phosphorus, Blood 2.9 mg/dL (2.5-4.9); Potassium, Blood 4.5 mmol/L (3.5-5.5); Sodium, Blood 139 mmol/L (136-145)
[2019-06-11 06:46] LABS: BASOPHILS PERCENT MAN 0 % (0-2); EOSINOPHILS ABSOLUTE MAN 0.59 K/mm3 (0.00-0.68); EOSINOPHILS PERCENT MAN 8 % (0-6); LYMPHOCYTES ABSOLUTE MAN 0.52 K/mm3 (0.84-5.20); LYMPHOCYTES PERCENT MAN 7 % (21-46); MONOCYTES ABSOLUTE MAN 0.22 K/mm3 (0.16-1.47); MONOCYTES PERCENT MAN 3 % (4-13); MYELOCYTE ABSOLUTE MAN 0.07 K/mm3 (0.00-0.00); MYELOCYTE PERCENT MAN 1 % (0-0); NEUTROPHILS ABSOLUTE MAN 6.04 K/mm3 (1.96-9.15); SEG NEUTROPHILS PERCENT MAN 81 % (41-73); TOTAL CELLS COUNTED 100
--- NOTE | 2019-06-11 08:00 | NUR ---
ASSUMED CARE OF PATIENT; SEE ASSESSMENT CHARTING FOR DETAILS. PATIENT PLEASANT AND COOPERATIVE. WEARS 4L/OXYGEN VIA NC WHEN OFF OF BIPAP MACHINE. LUNGS REMAINS CLEAR WITH SOME INTERMITTENT WHEEZES WHICH REDUCE WITH CDB; DECREASED IN BASES. ABD OBESE BUT SOFT; NO BM TODAY; TOLERATING DIET WELL. VOIDING SMALL TO MOD. AMOUNTS OF MED. YELLOW URINE (INTO URINAL). AFEBRILE AND NO ACUTE DISCOMFORT. MONITOR AFIB IN THE 80'S TO 90'S.
--- NOTE | 2019-06-11 10:00 | NUR ---
DR. HOLCOMB HERE TO EVAL. PATIENT; SEE ORDERS.
--- NOTE | 2019-06-11 15:30 | NUR ---
PHYSICAL THERAPIST, RADHA, WORKED WITH PATIENT; SEE THERAPY NOTES.
--- NOTE | 2019-06-11 18:26 | NUR ---
SUMMARY: UP IN CHAIR BY PHYSICAL THERAPIST; 1 PERSON ASSIST WITH USE OF WALKER AND GAIT BELT. REMAINS IN CHAIR/RECLINER AND VISITING WITH COMPANY. TOLERATING MEALS WITHOUT GI UPSET. CONGESTED (NASAL) THIS AM BUT RN INFORMED PHYSICIAN THAT PATIENT TAKES PSEUDOFED, ROUTINELY, AT HOME TO PREVENT NASAL CONGESTION/ETC. BREATHING MUCH MORE COMFORTABLY THIS EVENING AND NASAL/SINUSES CLEAR. NO NEED FOR INSULIN COVERAGE; CBG'S STAYING BELOW 150 T/O THE DAY. REMAINS IN CONTACT ISOLATION FOR ESBL.
[2019-06-12 03:55] LABS: BASOPHILS ABSOLUTE AUTO 0.02 K/mm3 (0.00-0.23); BASOPHILS PERCENT AUTO 0 % (0-2); EOSINOPHILS ABSOLUTE AUTO 0.32 K/mm3 (0.00-0.68); EOSINOPHILS PERCENT AUTO 5 % (0-6); Hematocrit 27.5 % (37.0-53.0); Hemoglobin 8.8 g/dL (13.5-17.5); IMMATURE GRAN ABSOLUTE AUTO 0.58 K/mm3 (0.00-0.10); IMMATURE GRAN PERCENT AUTO 8 % (0-1); LYMPHOCYTES ABSOLUTE AUTO 0.75 K/mm3 (0.84-5.20); LYMPHOCYTES PERCENT AUTO 11 % (21-46); MONOCYTES ABSOLUTE AUTO 0.47 K/mm3 (0.16-1.47); MONOCYTES PERCENT AUTO 7 % (4-13); Mean Corpuscular HGB 29.6 pg (26.0-34.0); Mean Corpuscular Volume 93 fL (80-100); NEUTROPHILS ABSOLUTE AUTO 4.87 K/mm3 (1.96-9.15); NEUTROPHILS PERCENT AUTO 69 % (41-73); Platelet Count 268 K/mm3 (150-400); RDW Coefficient Variation 15.9 % (11.7-14.2); RDW Standard Deviation 51.1 fL (35.1-46.3); Red Blood Cell Count 2.97 M/mm3 (4.30-5.90); White Blood Cell Count 7.01 K/mm3 (4.00-11.30)
[2019-06-12 04:40] LABS: Albumin, Blood 2.1 g/dL (3.4-5.0); Anion Gap 2 mmol/L (6-16); Blood Urea Nitrogen 12 mg/dL (8-24); Bun/Creatinine Ratio 14.8 (12.0-20.0); CO2, Blood 35 mmol/L (21-32); Calcium, Blood 8.1 mg/dL (8.5-10.1); Chloride, Blood 98 mmol/L (98-108); Creatinine, Blood 0.81 mg/dL (0.60-1.20); Glomerular Filtration Rate >60 (60-); Glucose, Blood 126 mg/dL (70-99); Phosphorus, Blood 3.1 mg/dL (2.5-4.9); Potassium, Blood 4.1 mmol/L (3.5-5.5); Sodium, Blood 135 mmol/L (136-145)
--- NOTE | 2019-06-12 04:56 | NUR ---
SHIFT SUMMARY: PATIENT VSS, CALL LIGHT WITHIN REACH AND USED APPROPRIATLY, BED LOW AND LOCKED. PATIENT MORE ACTIVE THIS SHIFT.
--- NOTE | 2019-06-12 08:00 | NUR ---
pt laying in bed awake a/ox3, pleasant and cooperative with care, follows commands well, denies pain, states he was awake every hr last night, lungs are clear in [place], dim in bases, with some courseness noted, he is on 4 liters 02 via n/c, resp even and unlabored, is off his bipap at this time, no cough noted, hrr, tele in place running afib per monitor, see strip, no edema noted, right side bka, he is very red to kurtis area and folds, buttocks are red, with small open area, nystatin applied, maew, weak, toño, call light in reach.
--- NOTE | 2019-06-12 13:30 | NUR ---
bed bath was given, P.T. worked with him, he had a bm, he states he feels weak, no other complaints. call light in reach.
--- NOTE | 2019-06-12 18:33 | NUR ---
pt doing ok, no acute changes this shift, he feels like he's getting better, uneventful day. call light in reach.
[2019-06-13 03:48] LABS: Hematocrit 25.4 % (37.0-53.0)
--- NOTE | 2019-06-13 04:04 | NUR ---
SHIFT SUMMARY: PATIENT POSITIONING SELFT IN BED, USING CALL LIGHT APPROPRIATLY, ABLE TO MANAGE HIS OWN BIPAP AT NIGHT AND NO O2 DROPS THIS SHIFT. VSS, CALL LIGHT WITHIN REACH, BED LOW AND LOCKED.
[2019-06-13 04:18] LABS: Anion Gap 4 mmol/L (6-16); Blood Urea Nitrogen 13 mg/dL (8-24); Bun/Creatinine Ratio 16.7 (12.0-20.0); CO2, Blood 34 mmol/L (21-32); Calcium, Blood 8.1 mg/dL (8.5-10.1); Chloride, Blood 100 mmol/L (98-108); Creatinine, Blood 0.78 mg/dL (0.60-1.20); Glomerular Filtration Rate >60 (60-); Glucose, Blood 131 mg/dL (70-99); Potassium, Blood 4.1 mmol/L (3.5-5.5); Sodium, Blood 138 mmol/L (136-145)
--- NOTE | 2019-06-13 14:01 | NUR ---
NOTE PT AWAKE ALERT. USINF CALL LIGHT. PT ABLE TO REPOSITION HIMSELF WITH TRAPEZA PRN. PT ABLE TO TURN SIDE TO SIDE. PT INCONTINENT OF BOWEL X1. MARA AREA CLEAR AND SMOOTH. NYSTATIN APPLIED TO SKIN FOLDS. NO BREAK DOWN NOTED. PT EXPRESSED THAT HIS SKIN IS HEALING WELL. VOIDING PER URINAL. GOOD APPETITE. CONTINUE POT.
--- NOTE | 2019-06-13 18:12 | NUR ---
NOTE PT ALERT AND ORIENTED. USING CALL LIGHT. VSS. PT INDEPENDENT ON BED MOBILITY. ENCOURAGED TO TURN SIDE TO SIDE. USING TRAPEZE. VSS. GOOD APPETITE. DENIED PAIN, MILD SOB. PT PUTS SELF ON/OFF CPAP. OXYGEN SATURATIONS STABLE ON 6L O2. CONTINUE POT.
--- NOTE | 2019-06-14 05:32 | NUR ---
SHIFT SUMMARY PT HAS REMAINED AOX4 THROUGHOUT SHIFT. VSS. PLEASANT AND COOPERATIVE WITH CARE. PT REMAINED ON BEDREST THROUGHOUT THE NIGHT, SHIFTING SELF IN BED AND ASSISTING WITH TURNS. PT HAS SLEPT THROUGH MUCH OF THE NIGHT WITH BIPAP IN PLACE. O2 SATS HAVE REMAINED >90% ON 3L VIA NASAL CANNULA OR ON BIPAP WITH 7L BLEED IN. PT MEDICATED ONCE FOR PHANTOM LIMB PAIN THAT DECREASES WITH ORDERED MEDICATION AND DISTRACTION. NO OTHER CHANGES NOTED FROM INITIAL ASSESSMENT. WILL CONTINUE TO MONITOR AND REPORT TO ONCOMING SHIFT RN. BED IN LOW POSITION, CALL LIGHT IN REACH.
[2019-06-14 08:57] LABS: Hematocrit 27.7 % (37.0-53.0); Hemoglobin 8.7 g/dL (13.5-17.5)
--- NOTE | 2019-06-14 09:46 | NUR ---
TRANSFER TO 343 REPORT CALLED TO MEDICAL FLOOR. CONFIRMED TRAPEZE ON NEW BED. PT AGREEABLE TO TRANSFER. CONTINUE POT.
--- NOTE | 2019-06-14 10:50 | NUR ---
PT UPDATED PT , MICHELL UPDATED ON PT TRANSFER & NEW ROOM.
--- NOTE | 2019-06-14 16:49 | NUR ---
SHIFT SUMMARY NO CHANGES IN ASSESSMENT AT THIS TIME. PT CONTINUES TO BE HYPOTENSIVE. MIDODRINE GIVEN SCHEDULED. VSS. PT ON 6L VIA NC PT MAINTAIN O2 SATS. WILL CONTINUE TO MONITOR UNTIL TURNOVER IS COMPLETE.
--- NOTE | 2019-06-15 02:43 | NUR ---
report received from TAYLER Babb.
--- NOTE | 2019-06-15 03:14 | NUR ---
SHIFT SUMMARY: PATIENT CARE TRANSFERRED TO YOAN LESTER. PATIENT VS HAVE BEEN STABLE UP TO BOUT AN HOUR AGO WHEN HIS SATS DROPPED TO 84% ON CPAP. HE WAS SLEEPING, CPAP WAS IN PLACE AND INFUSING OXYGEN AT 7 LITERS. CHECKED ALL THE LINES, AND THE MACHINE, NO DISCONNECTIONS NOTED. SENSOR TO FINGER NOTED TO BE SLIGHTLY COLD. INCREASED HIS OXYGEN TO 9 LITERS AND WAITED FOR A BIT, HIS OXYGEN STAYED WITH IN THE 88% AREA. CHECKED THE SENSOR AGAIN, AND NOTED WHEN IT WAS TOUCHED IT DID NOT READ RIGHT, PUT IT UNDER THE BLANKET TO HELP KEEP IT WARM THIS HELP THE CONTINIOUS BIOX TO READ BETTER, KEEPING HIS SATS AT 91-92% ON 9 LITERS. EARLIER IN THE SHIFT WHEN THE PATIENT TALKED HIS SATS ALSO DROPPED EAILY TO THE 87% AREA. ALL HE HAD TO DO IS TAKE A COUPLE DEEP BREATHS AND IT WILL COME UP TO NORMAL AREAS. PATIENT IS AWARE OF HIS DEFICENCIES, AND IS ABLE TO MAKE HIS OWN ADJUSTMENTS TO HIS BREATHING, TO HELP COMPENSATE. CARE WILL BE TRANSFERRED TO YOAN LESTER AT THIS TIME.
--- NOTE | 2019-06-15 03:42 | NUR ---
SHIFT SUMMARY: PT RESTING COMFORTABLY AT MOMENT WHILE WEARING C/PAP WITH SATS MAINTAINING AT 91%, DENIES PAIN OR NAUSEA, BED ALARM APPLIED, BED LOW POSITION, CALL LIGHT AT SIDE.
--- NOTE | 2019-06-15 17:19 | NUR ---
SHIFT SUMMARY NO CHANGES IN ASSESSMENT AT THIS TIME. PT UP TO CHAIR FOR LUNCH & DINNER THIS SHIFT. TOLERATING WELL. VSS. PT AWAITING SNF PLACEMENT. CARE MANAGEMENT INVOLVED. WILL CONTINUE TO MONITOR UNTIL TURNOVER IS COMPLETE.
--- NOTE | 2019-06-16 05:31 | NUR ---
SHIFT SUMMARY: RAMIRO HAS REMAINED STABLE THROUGHOUT THE SHIFT. CPAP WAS USED AT ALL TIMES WHILE SLEEPING AND SOME TIMES WHILE AWAKE WITH 7 LITERS OF O2 BLEED INTO IT. NC WAS USED WHILE AWAKE AT TIMES WITH 5 LITERS. HE HAD ONE EPISODE OF PAIN, WHICH WAS MEDICATED WITH TYLENOL. THIS HELPED TO RELEIVE THE PAIN. HE DENIED ANY OTHER CONCERNS OR COMPLAINTED THIS SHIFT. WILL REPORT TO DAY SHIFT RN.
--- NOTE | 2019-06-16 16:59 | NUR ---
SHIFT SUMMARY PT INTERMITTENT ON BIPAP THROUGHOUT DAY. DESAT'S QUICKLY ON ROOM AIR. 2 PERSON MAX ASSIST. DECREASED APPETITE. USING URINAL WELL. AKA RIGHT SIDED. DENIES ANY PAIN. ESBL IN URINE CONTACT ISO. CBG'S AC AND HS. MECHANICAL SOFT DIET.
--- NOTE | 2019-06-17 06:45 | NUR ---
SHIFT SUMMARY PATIENT ON BIPAP HS WIH 7L O2. PATIENT SPO2 BETWEEN 85-94%. PATIENT USED URINAL AND CALLED APPROPRIATELY. COUGHING UP GREEN SPUTUM THROUGHOUT THE NIGHT. WILL CONTINUE TO MONITOR AND REPORT TO ONCOMING NURSE.
--- NOTE | 2019-06-17 15:00 | NUR ---
PT WITH INCREASED SOB, CALLED RT FOR TREATMENT, CALLED DR ANSARI, ORDERS RECIEVED, SUCTION SET UP IN THE ROOM, NOTIFIED TELE PT'S INCREASED DISTRESS PT MORE TACHYCARDIC WELL, WILL CONT TO MONITOR
--- NOTE | 2019-06-17 17:48 | NUR ---
SUMMARY PT AWAKE IN BED EATING DINNER, PT REPORTS BEING LESS SOB THIS EVENING, VSS, WILL CONT TO MONITOR
[2019-06-18 04:45] LABS: BASOPHILS ABSOLUTE AUTO 0.02 K/mm3 (0.00-0.23); BASOPHILS PERCENT AUTO 0 % (0-2); EOSINOPHILS ABSOLUTE AUTO 0.07 K/mm3 (0.00-0.68); EOSINOPHILS PERCENT AUTO 1 % (0-6); Hematocrit 27.3 % (37.0-53.0); Hemoglobin 8.5 g/dL (13.5-17.5); IMMATURE GRAN PERCENT AUTO 1 % (0-1); LYMPHOCYTES ABSOLUTE AUTO 0.56 K/mm3 (0.84-5.20); LYMPHOCYTES PERCENT AUTO 4 % (21-46); MONOCYTES ABSOLUTE AUTO 1.61 K/mm3 (0.16-1.47); MONOCYTES PERCENT AUTO 12 % (4-13); Mean Corpuscular HGB 29.8 pg (26.0-34.0); Mean Corpuscular HGB Conc 31.1 g/dL (31.5-36.5); Mean Platelet Volume 10.1 fL (9.1-12.4); NEUTROPHILS PERCENT AUTO 83 % (41-73); Platelet Count 292 K/mm3 (150-400); RDW Coefficient Variation 15.7 % (11.7-14.2); RDW Standard Deviation 54.2 fL (35.1-46.3); Red Blood Cell Count 2.85 M/mm3 (4.30-5.90); White Blood Cell Count 13.76 K/mm3 (4.00-11.30)
[2019-06-18 04:48] LABS: Mean Corpuscular Volume 96 fL (80-100)
[2019-06-18 05:01] LABS: Anion Gap 5 mmol/L (6-16); Blood Urea Nitrogen 16 mg/dL (8-24); Bun/Creatinine Ratio 17.3 (12.0-20.0); CO2, Blood 34 mmol/L (21-32); Calcium, Blood 8.4 mg/dL (8.5-10.1); Chloride, Blood 96 mmol/L (98-108); Creatinine, Blood 0.93 mg/dL (0.60-1.20); Glomerular Filtration Rate >60 (60-); Glucose, Blood 138 mg/dL (70-99); Potassium, Blood 4.1 mmol/L (3.5-5.5); Sodium, Blood 135 mmol/L (136-145)
--- NOTE | 2019-06-18 05:44 | NUR ---
sHIFT SUMMARY: pT WAS ABLE TO SLEEP MOST of SHIFT AND TOLERATES CPAP WELL. No c/o discomfort. Pt wearing cpap most of time even during the day. Suction at bedside to help with secretions. Pt awaiting senior care placement. Picc line dressing changed.
--- NOTE | 2019-06-18 07:13 | NUR ---
RESP DISTRESS CAME ON SHIFT TO PT WITH INCREASED WORK OF BREATHING AND SOB, LUNG SOUNDS VERY WET AND COARSE, PT CONT TO COUGH UP THICK GREEN SPUTUM, RT IN THE ROOM, DISCUSSED WITH BAG INSPECTOR WELL, CALL TO DR ANSARI, PT WILL BE PLACED ON V60 BIPAP AND TRANSFERRED TO PCU
--- NOTE | 2019-06-18 07:36 | NUR ---
CALL PLACED TO PT'S SPOUSE TO LET HER KNOW PT WILL BE GOING TO PCU 3, SPOUSE REPORTED AT HOME PT TAKES 60MG LASIX A DAY, BUT IS NOT CONSISTENTLY COMPLIANT WITH TAKING IT, NOTIFIED TECHNOLOGY MANAGER THAT THE PT WILL BE C0MING TO PCU 3, SHE WILL CALL BACK IN A FEW MINUTES FOR REPORT
[2019-06-18 07:40] LABS: PCO2 Arterial 75.3 mmHg (35-45); PO2 Arterial 97.8 mmHg (80-100); pH Blood Arterial 7.24 (7.35-7.45)
--- NOTE | 2019-06-18 07:47 | NUR ---
REPORT FROM OPTOMETRIST/PRACTICE OWNER.
--- NOTE | 2019-06-18 08:06 | NUR ---
PT TO PCU 3. HAD STOOLED. MED FLOOR NURSES STAYED TO CLEAN PT. PT ON BIPAP. ALERT AND ORIENTED, ABLE TO ANSWER QUESTIONS.
--- NOTE | 2019-06-18 08:39 | NUR ---
REPORT TO KRISTINA LESTER, PT TAKEN TO PCU ON THE BIPAP
--- NOTE | 2019-06-18 08:45 | NUR ---
PERSONAL FAN PROVIDED. CALL LIGHT IN REACH. ASSESSMENT CHARTED. PT ORIENTED TO ROOM. DENIES IMMEDIATE NEED. SEEMS COMFORTABLE ON BIPAP.
--- NOTE | 2019-06-18 09:00 | NUR ---
PT ASKING FOR WATER. RESP AT BEDSIDE CHANGING BIPAP SETTINGS.
--- NOTE | 2019-06-18 10:15 | NUR ---
PT MEDICATED PER EMAR. ARIES PILLS WITH SOME WATER WELL. PT SOB DURING THIS ACTIVITY. PT PLACED PROMPTLY BACK ON BIPAP. CALL LIGHT IN REACH. GLASSES AND DENTURES TO BEDSIDE TABLE PER PT REQUEST. PT WATCING TV.
--- NOTE | 2019-06-18 11:20 | NUR ---
PT RESTING IN POSITION OF COMFORT. BIPAP IN PLACE, SATS 96%. PT APPEARS TO BE COMFORTABLE. WILL CONT TO MONITOR.
--- NOTE | 2019-06-18 12:30 | NUR ---
ATTEMPT TO DC BIPAP AND PLACE PT ON 02 PER NC. PT BECAME TOO SOB AND REQUESTED BIPAP TO BE PLACED BACK ON. VSS.
--- NOTE | 2019-06-18 12:56 | NUR ---
PT MORE COMFORTABLE. VSS. PT DENIES NEEDS. CALL LIGHT IN REACH.
--- NOTE | 2019-06-18 13:35 | NUR ---
PT MEDICATED PER EMAR.
--- NOTE | 2019-06-18 14:30 | NUR ---
PT SITTING IN BED, ON BIPAP. SAT 95%. CALL LIGHT IN REACH. CHARGE NURSE TO MONITOR PT FOR THIS RN LUNCH.
--- NOTE | 2019-06-18 15:00 | NUR ---
RESUMED PT CARE. PT DENIES NEEDS. CONTINUES TO SUCTION SELF NEEDED. CALL LIGHT IN REACH. PT INTERMITTENTLY WATCHES TV.
--- NOTE | 2019-06-18 15:15 | NUR ---
SPOKE WITH PT/OT AGAIN. PLAN TO HAVE THEM SEE PT TMRW DUE TO PT CONTINUED SOB AND NEED FOR BIPAP.
--- NOTE | 2019-06-18 16:34 | NUR ---
VSS. PT BIPAP MASK IN PLACE. PT WATCHING TV.
--- NOTE | 2019-06-18 17:06 | NUR ---
PT UPDATED PER SPOUSE REQUEST. PT HAS NO NEEDS. SENIOR CONTROL SYSTEMS ENGINEER AT BEDSIDE.
--- NOTE | 2019-06-18 17:39 | NUR ---
PT MEDICATED PER ORDERS. TAKES PILLS WELL. URINAL IN REACH. CALL LIGHT IN REACH.
--- NOTE | 2019-06-18 18:42 | NUR ---
PT DENIES NEEDS. EXPLAINED ON COMING NURSE WILL BE BY SOON. CALL LIGHT REMAINS IN REACH. PT ALERT AND ORIENTED.
[2019-06-19 03:39] LABS: Base Excess Venous 9.6 mmol/L; Bicarbonate Venous 32.1 mmol/L (24.0-30.0); PCO2 Venous 61.5 mmHg (38-42); PO2 Venous 54.9 mmHg (38-42); pH Blood Venous 7.36 (7.34-7.37)
[2019-06-19 04:01] LABS: BASOPHILS ABSOLUTE AUTO 0.01 K/mm3 (0.00-0.23); BASOPHILS PERCENT AUTO 0 % (0-2); EOSINOPHILS ABSOLUTE AUTO 0.09 K/mm3 (0.00-0.68); EOSINOPHILS PERCENT AUTO 1 % (0-6); Hemoglobin 7.8 g/dL (13.5-17.5); IMMATURE GRAN ABSOLUTE AUTO 0.09 K/mm3 (0.00-0.10); IMMATURE GRAN PERCENT AUTO 1 % (0-1); LYMPHOCYTES ABSOLUTE AUTO 0.51 K/mm3 (0.84-5.20); LYMPHOCYTES PERCENT AUTO 5 % (21-46); MONOCYTES ABSOLUTE AUTO 1.08 K/mm3 (0.16-1.47); MONOCYTES PERCENT AUTO 10 % (4-13); Mean Corpuscular HGB 30.1 pg (26.0-34.0); Mean Corpuscular HGB Conc 31.2 g/dL (31.5-36.5); Mean Corpuscular Volume 97 fL (80-100); Mean Platelet Volume 10.1 fL (9.1-12.4); NEUTROPHILS PERCENT AUTO 83 % (41-73); Platelet Count 274 K/mm3 (150-400); RDW Coefficient Variation 15.4 % (11.7-14.2); RDW Standard Deviation 53.7 fL (35.1-46.3); Red Blood Cell Count 2.59 M/mm3 (4.30-5.90); White Blood Cell Count 10.58 K/mm3 (4.00-11.30)
[2019-06-19 04:21] LABS: Anion Gap 6 mmol/L (6-16); Blood Urea Nitrogen 20 mg/dL (8-24); Bun/Creatinine Ratio 21.2 (12.0-20.0); CO2, Blood 35 mmol/L (21-32); Calcium, Blood 8.1 mg/dL (8.5-10.1); Chloride, Blood 94 mmol/L (98-108); Creatinine, Blood 0.94 mg/dL (0.60-1.20); Glomerular Filtration Rate >60 (60-); Glucose, Blood 106 mg/dL (70-99); Potassium, Blood 3.7 mmol/L (3.5-5.5); Sodium, Blood 135 mmol/L (136-145)
--- NOTE | 2019-06-19 04:36 | NUR ---
ASSUMED CARE OF PT FROM TAYLER ACEVEDO APPROXIMATELY 1910; PT ON BIPAP EXCEPT WHEN TAKING MEDS AND IS PLACED ON NC FOR THOSE TIMES; PT PERFORMS SELF SUCTIONING AND HAS LARGE AMOUNTS OF SPUTUM; PT DENIES PAIN AND DENIES REPOSITIONING; PT IS ALERT AND CALLS APPROPRIATELY; PT SLEPT IN BETWEEN INTERVENTIONS DURING THE NIGHT; CALL LIGHT W/IN REACH; BED IN LOWEST POSITION; WILL CONTINUE TO MONITOR AND ASSESS UNTIL HANDOFF TO DAYSHIFT RN.
--- NOTE | 2019-06-19 05:31 | NUR ---
UPDATE NOTIFIED OF HGB RESULTS. NO ORDERS GIVEN.
--- NOTE | 2019-06-19 16:40 | NUR ---
SHIFT SUMMARY PT A&Ox4. CALM AND COOPERATIVE WITH CARE. PT REFUSING TO Q2 TURN FOR MAJORIT OF SHIFT, ASSIST WITH REPOSITIONING SELF. PT RESTING IN BED DURING SHIFT. PT OFF BIPAP THIS AM, ON 4.5L O2 VIA NC, SPO2 86-88, TITRATED TO 7L O2 VIA NC THIS AM, TITRATED TO 6L O2 VIA NC, SPO2 91-93%. LS DIM WITH SCATTERED WHEEZES. PT WEARING BIPAP AT NOC AND BREATHING TREATMENTS PER RT. PT SELF SUCTIONS LARGE AMOUNTS OF GREEN, THICK SPUTUM. PT DENIES PAIN AND NAUSEA. BP ON THE LOW SIDE THIS AFTERNOON, WILL CONTINUE TO MONITOR, MEDICATING PER EMAR. OTHER VSS. NO OTHER ACUTE CHANGES NOTED WILL CONTINUE TO MONITOR.
--- NOTE | 2019-06-20 02:59 | NUR ---
ASSUMED CARE OF PATIENT APPROXIMATELY 1930 FROM TAYLER CH. PT IS PLEASANT AND COMPLIANT WITH CARE; L LEG HAS DISCOLORATION, IS SWOLLEN AND WARM TO TOUCH; PT STATES IT "HAS GOTTEN WORSE" SINCE FALL PRIOR TO HOSPITAL STAY; PT C/O PAIN; FOOT OF BED ELEVATED AND MEDICATION ADMINISTERED PER ORDERS FOR PAIN; PROVIDER NOTIFIED; XRAY ORDERED FOR L KNEE AND L HIP; PT REFUSED AND STATED PRIOR HX OF DVT IN L LEG; PROVIDER NOTIFIED; L LOWER VENOUS DUPLEX ORDERED FOR AM; PT SLEPT WELL BETWEEN INTERVENTIONS; CALL LIGHT W/IN REACH; BED IN LOWEST POSITION; WILL CONTINUE TO MONITOR AND ASSESS UNTIL HANDOFF TO DAYSHIFT RN.
[2019-06-20 05:15] LABS: BASOPHILS ABSOLUTE AUTO 0.01 K/mm3 (0.00-0.23); BASOPHILS PERCENT AUTO 0 % (0-2); EOSINOPHILS ABSOLUTE AUTO 0.25 K/mm3 (0.00-0.68); EOSINOPHILS PERCENT AUTO 4 % (0-6); Hematocrit 26.4 % (37.0-53.0); Hemoglobin 8.2 g/dL (13.5-17.5); IMMATURE GRAN ABSOLUTE AUTO 0.08 K/mm3 (0.00-0.10); IMMATURE GRAN PERCENT AUTO 1 % (0-1); LYMPHOCYTES ABSOLUTE AUTO 0.47 K/mm3 (0.84-5.20); LYMPHOCYTES PERCENT AUTO 8 % (21-46); MONOCYTES ABSOLUTE AUTO 0.71 K/mm3 (0.16-1.47); MONOCYTES PERCENT AUTO 12 % (4-13); Mean Corpuscular HGB 29.6 pg (26.0-34.0); Mean Corpuscular HGB Conc 31.1 g/dL (31.5-36.5); Mean Corpuscular Volume 95 fL (80-100); NEUTROPHILS ABSOLUTE AUTO 4.35 K/mm3 (1.96-9.15); NEUTROPHILS PERCENT AUTO 74 % (41-73); Platelet Count 274 K/mm3 (150-400); RDW Coefficient Variation 15.2 % (11.7-14.2); RDW Standard Deviation 53.2 fL (35.1-46.3); Red Blood Cell Count 2.77 M/mm3 (4.30-5.90); White Blood Cell Count 5.87 K/mm3 (4.00-11.30)
[2019-06-20 05:33] LABS: Anion Gap 5 mmol/L (6-16); Blood Urea Nitrogen 17 mg/dL (8-24); Bun/Creatinine Ratio 21.8 (12.0-20.0); CO2, Blood 38 mmol/L (21-32); Calcium, Blood 8.1 mg/dL (8.5-10.1); Chloride, Blood 95 mmol/L (98-108); Creatinine, Blood 0.78 mg/dL (0.60-1.20); Glomerular Filtration Rate >60 (60-); Glucose, Blood 118 mg/dL (70-99); Potassium, Blood 3.2 mmol/L (3.5-5.5); Sodium, Blood 138 mmol/L (136-145)
--- NOTE | 2019-06-20 15:21 | NUR ---
PT SITTING UP IN BED WITH 6L O2 VIA NC, SPO2 [id number]. PT SOB, REQUESTING BIPAP. BIPAP PLACED. WILL CONTINUE TO MONITOR.
--- NOTE | 2019-06-20 17:09 | NUR ---
SHIFT SUMMARY PT A&Ox4, CALM AND COOPERATIVE WITH CARE. PT REPOSITIONS SELF, REQUESTS ASSISTANCE WHEN NEEDED. PT 1 PERSON TRANSFER ASSIST. PT RESTING IN BED DURING SHIFT. LEFT HIP/KNEE XRAY COMPELTED AND LLE VENOUS DOPPLER COMPLETED THIS AM. PT ON BIPAP 16/10 AT 4% FIO2, TAKING BREAKS ON 6L O2 VIA NC FOR MEALS AND THIS AFTERNOON. LS DIM T/O/ PT RECEIVING IV LASIX. PT SELF SUCTIONS, CONTINUES TO SUCTIONS LARGE AMOUNTS OF THICK, GREEN SPUTUM. PT DENIES PAIN, NAUSEA. BP ON LOW SIDE THIS AFTERNOON, MEDICATED WITH SCHEDULED PROAMATIN. PT RECEIVING IV ANTIBIOTICS AND RECEIVED 40 MEQ OF KCL THIS AM. OTHER VSS. NO OTHER ACUTE CHANGES NOTED DURING SHIFT. WILL CONTINUE TO MONITOR UNTIL REPORT GIVEN TO ONCOMING RN.
[2019-06-21 04:42] LABS: BASOPHILS ABSOLUTE AUTO 0.02 K/mm3 (0.00-0.23); BASOPHILS PERCENT AUTO 0 % (0-2); EOSINOPHILS ABSOLUTE AUTO 0.24 K/mm3 (0.00-0.68); EOSINOPHILS PERCENT AUTO 4 % (0-6); Hemoglobin 8.3 g/dL (13.5-17.5); IMMATURE GRAN ABSOLUTE AUTO 0.05 K/mm3 (0.00-0.10); IMMATURE GRAN PERCENT AUTO 1 % (0-1); LYMPHOCYTES ABSOLUTE AUTO 0.59 K/mm3 (0.84-5.20); LYMPHOCYTES PERCENT AUTO 11 % (21-46); MONOCYTES ABSOLUTE AUTO 0.66 K/mm3 (0.16-1.47); MONOCYTES PERCENT AUTO 12 % (4-13); Mean Corpuscular HGB 29.6 pg (26.0-34.0); Mean Corpuscular HGB Conc 31.9 g/dL (31.5-36.5); Mean Corpuscular Volume 93 fL (80-100); Mean Platelet Volume 9.7 fL (9.1-12.4); NEUTROPHILS ABSOLUTE AUTO 3.89 K/mm3 (1.96-9.15); NEUTROPHILS PERCENT AUTO 71 % (41-73); Platelet Count 269 K/mm3 (150-400); RDW Coefficient Variation 15.1 % (11.7-14.2); RDW Standard Deviation 51.8 fL (35.1-46.3); White Blood Cell Count 5.45 K/mm3 (4.00-11.30)
[2019-06-21 05:11] LABS: Anion Gap 5 mmol/L (6-16); Blood Urea Nitrogen 13 mg/dL (8-24); Bun/Creatinine Ratio 19.1 (12.0-20.0); CO2, Blood 38 mmol/L (21-32); Calcium, Blood 8.1 mg/dL (8.5-10.1); Chloride, Blood 94 mmol/L (98-108); Creatinine, Blood 0.68 mg/dL (0.60-1.20); Glomerular Filtration Rate >60 (60-); Glucose, Blood 129 mg/dL (70-99); Potassium, Blood 3.3 mmol/L (3.5-5.5); Sodium, Blood 137 mmol/L (136-145)
--- NOTE | 2019-06-21 06:34 | NUR ---
SHIFT SUMMARY PATIENT PLEASENT THROUGHOUT THE NIGHT. PATIENT MEDICATED FOR LEG PAIN PER EMAR. PATIENT APPEARED TO SLEEP WELL THROUGHOUT THE NIGHT. PATIENT REMAINED ON THE BIPAP FOR MOST OF THE NIGHT, ONLY TAKING QUICK BREAKS FOR MEDICATIONS, DRINKS, AND SUCTIONING. PATIENT SUCTIONS SELF NEEDED. CONTINUOUS BIOX IN PLACE. PATIENT APPEARED TO SLEEP WELL THROUGHOUT THE NIGHT. PATIENT CURRENTLY APPEARS TO BE ASLEEP. BED IN LOW, LOCKED POSITION, AND CALL LIGHT WITHIN REACH. WILL COTNINUE TO MONITOR PATIENT AND REPORT TO ONCOMING RN.
[2019-06-21 10:41] LABS: Percent Saturation 16.3 % (20.0-50.0)
--- NOTE | 2019-06-21 17:47 | NUR ---
SHIFT SUMMARY PT ALERT AND ORIENTED. VS STABLE. O2 SATS REMAIN ABOVE 90% ON 5L NC. PT USED HOME BIPAP TWICE THIS SHIFT WHILE HE SLEPT. PT ABLE TO REPOSITION HIMSELF IN BED. PT REPORTS SOME DISCOMFORT IN HIS LEFT LEG. LEFT LEG IS WARM AND RED. SPOKE WITH DR. JAMISON ABOUT DVT TO LEFT FEMORAL VEIN. DR. JAMISON STATES IT IS CHRONIC AND DOES NOT REQUIRE TREATMENT. WILL CONTINUE TO MONITOR CLOSELY AND REPORT TO ONCOMING RN. CALL LIGHT IN REACH.
--- NOTE | 2019-06-21 19:10 | NUR ---
ASSUMED CARE OF PATIENT (PCU3-MED STATUS NO TELE PATIENT/ NOC SHIFT) PATIENT ALERT AND ORIENTED TO SELF, LOCATION, TIME/DATE AND SITUATION. PATIENT DENIES ANY PAIN AT START OF SHIFT. REVIEWED CHART, LABS, ORDERS AND RECIEVED REPORT FROM NELSON GUZMAN RN. THIS RN AND THOMAS RN VISUALIZE PATIENTS LEFT LEG - OF WHICH PATIENT VERBALIZED CONCERN OF HIS DVT - THOMAS RN INFORMED THIS RN THAT SHE HAD NOTIFIED MD JAMISON OF CONCERN AND SKIN CHANGES (SEE PHOTOS IN CHARGE) WITH NO NEW ORDERS GIVEN AT THIS TIME. PATIENT IS MED NO TELE AT THIS TIME BUT HAS BEEN NOTED TO BE IN AFIB IN THE 90'S WITH A BBB. RESP LABORED AT TIMES WITH EXCERTION. PATIENT HIS ON HOME CPAP/BIPAP DEVICE AND HAS 5 LPM BLEED IN - CONTINUOUS BIOX IN PLACE READING 94% OR GREATER. PATIENT ENCOURAGED TO COUGH AND DEEP BREATH DURING DEVICE BREAKS. PATIENT HAS RIGHT AKA. DECREASED PULSES NOTED IN LEFT LEG WITH VASCULAR ULCERS AND RED/PURPLE SKIN NOTED AROUND CALF. WILL CONTINUE TO MONITOR/CALL LIGHT W/I REACH.
[2019-06-22 03:35] LABS: BASOPHILS ABSOLUTE AUTO 0.03 K/mm3 (0.00-0.23); BASOPHILS PERCENT AUTO 1 % (0-2); EOSINOPHILS ABSOLUTE AUTO 0.26 K/mm3 (0.00-0.68); EOSINOPHILS PERCENT AUTO 5 % (0-6); Hematocrit 27.6 % (37.0-53.0); Hemoglobin 8.6 g/dL (13.5-17.5); IMMATURE GRAN ABSOLUTE AUTO 0.05 K/mm3 (0.00-0.10); IMMATURE GRAN PERCENT AUTO 1 % (0-1); LYMPHOCYTES ABSOLUTE AUTO 0.75 K/mm3 (0.84-5.20); LYMPHOCYTES PERCENT AUTO 14 % (21-46); MONOCYTES ABSOLUTE AUTO 0.69 K/mm3 (0.16-1.47); MONOCYTES PERCENT AUTO 12 % (4-13); Mean Corpuscular HGB 28.8 pg (26.0-34.0); Mean Corpuscular HGB Conc 31.2 g/dL (31.5-36.5); Mean Corpuscular Volume 92 fL (80-100); Mean Platelet Volume 9.7 fL (9.1-12.4); NEUTROPHILS ABSOLUTE AUTO 3.77 K/mm3 (1.96-9.15); NEUTROPHILS PERCENT AUTO 68 % (41-73); Platelet Count 260 K/mm3 (150-400); RDW Coefficient Variation 15.3 % (11.7-14.2); RDW Standard Deviation 51.3 fL (35.1-46.3); Red Blood Cell Count 2.99 M/mm3 (4.30-5.90); White Blood Cell Count 5.55 K/mm3 (4.00-11.30)
[2019-06-22 03:59] LABS: Anion Gap 5 mmol/L (6-16); Blood Urea Nitrogen 13 mg/dL (8-24); CO2, Blood 38 mmol/L (21-32); Calcium, Blood 8.3 mg/dL (8.5-10.1); Chloride, Blood 93 mmol/L (98-108); Creatinine, Blood 0.65 mg/dL (0.60-1.20); Glomerular Filtration Rate >60 (60-); Glucose, Blood 145 mg/dL (70-99); Potassium, Blood 3.6 mmol/L (3.5-5.5); Sodium, Blood 136 mmol/L (136-145)
--- NOTE | 2019-06-22 06:22 | NUR ---
PCU NOC SHIFT SUMMARY PATIENT ALERT AND ORIENTED X4 T/O SHIFT WITH NO ACUTE CHANGES NOTED. PATIENT REMAINS MED NO TELE WITH VSS T/O SHIFT. PATIENT REPOSITIONED PRN FOR COMFORT. PATIENT HAS AKA RIGHT LEG AND WOUNDS/PVD NOTED ON LEFT LEG (SEE NEW PICTURES IN CHARGE 9.07.01). RESP LABORED WITH EXCERTION. HOME CPAP IN PLACE T/O SHIFT - PATIENT TOLERATED WELL. YEAST NOTED UNDER PANUS - TREATED WITH MEDICATION PER EMAR. NO FURTHER CHANGES NOTED. WILL CONTINUE TO MONITOR AND REPORT TO NELSON LESTER.
--- NOTE | 2019-06-22 16:12 | NUR ---
SHIFT SUMMARY PT ALERT AND ORIENTED. VS STABLE. O2 SATS REMAIN ABOVE 90% ON 5L NC. PT USES HIS HOME BIPAP DEVICE NEEDED WITH 5L BLEED IN. BP STABLE. PT DENIES ANY PAIN, BUT STATES DISCOMFORT TO LEFT LEG. LEFT LEG COVERED FROM KNEE TO GROIN WITH RED BLISTERS. DISCUSSED WITH DR. JAMISON THIS SHIFT AND NEW DIAGNOSIS OF SHINGLES. INFECTION CONTROL CALLED REGAURDING PRECAUTIONS FOR SHINGLES AND AT THIS TIME PT REMAINS CONTACT PRECAUTIONS. IF BLISTERS START TO OOZE OR WEEP, PT WILL NEED TO BE IN DROPLET PRECAUTIONS. PT TO BE TRANSFERRED TO MEDICAL FLOOR ONCE REPORT HAS BEEN GIVEN.
--- NOTE | 2019-06-22 17:30 | NUR ---
TRANSFER PATIENT TRANSFERRED TO MEDICAL FLOOR AROUND 1710. PATIENT A&O X4, USES CALL LIGHT APPROPRIATELY. DISCOMFORT TO L LEG WITH INTACT BLISTERS/WELTS AND REDNESS. VSS ON 5L 02 NC. PT SETTLED INTO ROOM, WILL CONTINUE TO MONITOR.
--- NOTE | 2019-06-22 19:38 | NUR ---
ASSUMED CARE OF PATIENT. PATIENT SITTING IN BED, RT JUST APPLIED HIS BIPAP, PATIENT DENIES PAIN, NAUSEA. NO APPARENT DISTRESS NOTED. IV ACYLOVIR IS INFUSING TO C/D/I IV SITE. CALL ANDREWS WITHIN REACH.
[2019-06-23 04:49] LABS: BASOPHILS ABSOLUTE AUTO 0.03 K/mm3 (0.00-0.23); BASOPHILS PERCENT AUTO 1 % (0-2); EOSINOPHILS ABSOLUTE AUTO 0.22 K/mm3 (0.00-0.68); EOSINOPHILS PERCENT AUTO 4 % (0-6); Hematocrit 28.5 % (37.0-53.0); IMMATURE GRAN ABSOLUTE AUTO 0.09 K/mm3 (0.00-0.10); IMMATURE GRAN PERCENT AUTO 1 % (0-1); LYMPHOCYTES ABSOLUTE AUTO 0.79 K/mm3 (0.84-5.20); LYMPHOCYTES PERCENT AUTO 13 % (21-46); MONOCYTES ABSOLUTE AUTO 0.82 K/mm3 (0.16-1.47); MONOCYTES PERCENT AUTO 13 % (4-13); Mean Corpuscular HGB 28.7 pg (26.0-34.0); Mean Corpuscular HGB Conc 31.6 g/dL (31.5-36.5); Mean Corpuscular Volume 91 fL (80-100); Mean Platelet Volume 9.8 fL (9.1-12.4); NEUTROPHILS ABSOLUTE AUTO 4.32 K/mm3 (1.96-9.15); NEUTROPHILS PERCENT AUTO 69 % (41-73); Platelet Count 273 K/mm3 (150-400); RDW Coefficient Variation 15.3 % (11.7-14.2); RDW Standard Deviation 50.5 fL (35.1-46.3); Red Blood Cell Count 3.14 M/mm3 (4.30-5.90); White Blood Cell Count 6.27 K/mm3 (4.00-11.30)
[2019-06-23 05:12] LABS: Anion Gap 6 mmol/L (6-16); Blood Urea Nitrogen 11 mg/dL (8-24); Bun/Creatinine Ratio 16.2 (12.0-20.0); CO2, Blood 39 mmol/L (21-32); Calcium, Blood 8.4 mg/dL (8.5-10.1); Chloride, Blood 88 mmol/L (98-108); Creatinine, Blood 0.68 mg/dL (0.60-1.20); Glomerular Filtration Rate >60 (60-); Glucose, Blood 142 mg/dL (70-99); Potassium, Blood 3.7 mmol/L (3.5-5.5); Sodium, Blood 133 mmol/L (136-145)
--- NOTE | 2019-06-23 16:45 | NUR ---
SHIFT SUMMARY PT CONTINUED IN AIRBORN PRECAUTIONS. PT HAS SOME SCABING ON A FEW BLISTERS ON L THIGH. BLISTERS NOW COVERED WITH KERLEX. PHOTO TAKEN & IN CHART. PT REFUSED TO GET INTO CHAIR THIS SHIFT DUE TO FEELING "TIRED" & PAIN IN HIS LEG. PT HAS HOWEVER DENIED NEED FOR PAIN MEDS. NO OTHER CHAGNES IN ASSESSMENT AT THIS TIME. VSS. WILL CONTINUE TO MONITOR UNTIL TURNOVER IS COMPLETE.
--- NOTE | 2019-06-24 04:58 | NUR ---
SHIFT SUMMARY PT ON AIRBORNE PRECAUTIONS DUE TO SHINGLES ON THE LEFT THIGH. PT REFUSES TO BE REPOSITIONED AND STATES HE CAN "MOVE HIMSELF" ENCOURGAMENT TO CHANGE POSITIONS IN BED WAS GIVEN. DRESSINGS ON HIS LEFT THIGH, BUTTOCKS, AND LEFT BIG TOE CLEAN DRY AND INTACT. PT STATES HE IS "PASSING LOOSE STOOLS" SO BOWEL CARE WAS WITHHELD. PT REFUSED TO WEAR SCD ON LEFT LEG DUE TO PAIN. PT HAS WORN THE BIPAP THROUGHOUT THE NIGHT, BUT SWITCHES TO NASAL CANNULA IF HE FEELS THE NEED. HE HAS A RIGHT AKA THAT GAVE HIM SOME PAIN THIS SHIFT, TYLENOL WAS GIVEN AND PT WAS ASLEEP AT TIME OF REASSESSMENT.WILL CONTINUE TO MONITOR.
--- NOTE | 2019-06-24 17:52 | NUR ---
PT IN A PLEASANT AND COOPERATIVE MOOD TODAY, WORKED WELL WITH PT/OT. AGREED TO TRY TRANSFERRING TOMORROW. DENIED PAIN T/O THE DAY. NO ACUTE CHANGES NOTED THIS SHIFT. WILL CONTINUE TO MONITOR AND REPORT TO ONCOMING RN.
--- NOTE | 2019-06-25 04:05 | NUR ---
SHIFT SUMMARY NO ACUTE CHANGES THIS SHIFT. PT STILL REFUSES TO WEAR SCDS AND TAKE HIS FIBER DUE TO "LOOSE STOOLS". PT CONTINUES TO USE BIPAP THROUGHOUT THE NIGHT.
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
--- NOTE | 2019-06-26 06:17 | NUR ---
SHIFT SUMMARY NO ACUTE CHANGES TONIGHT. PT IN AIRBORNE PRECAUTIONS FOR SHINGLES TO LLE, RED BLISTERING RASH NOTED TO L THIGH/HIP AREA. PT DENIES ANY PAIN OR DISCOMFORT TONIGHT. PT REPOSITIONED FREQUENTLY TONIGHT, REDNESS AND EXCORIATIONS NOTED TO BOTTOM. PT ON 4L VIA NC, AND BPAP, PT SWITCHES INDEPENDENTLY BETWEEN THE TWO. WILL CONT TO MONITOR AND PROVIDE CARE UNTIL PRESUMED BY ONCOMING RN.
--- NOTE | 2019-06-27 04:56 | NUR ---
PT DENIES ANY SOB, 4L O2 WHICH IS WHAT PT IS ON AT HOME. BIPAP AT NIGHT. NO C/O NAUSEA. PAIN RATED 2/10 IN GROIN AREA. NO PRNS GIVEN. R AKA. SHINGLES TO LLE. AIRBORNE PRECAUTIONS. 2 PERSON ASSIST, USES BEDPAN. PICC IN TAI, DOES NOT DRAW. VSS. PLAN IS TO TRANSFER TO REHAB WHEN LESIONS SCAB OVER.
--- NOTE | 2019-06-27 16:41 | NUR ---
SHIFT SUMMARY NO ACUTE CHANGES. PATIENT DENIES PAIN, NAUSEA, AND SHORTNESS OF BREATH. PATIENT REMAINS ON 4L NC, SAME BASELINE. PATIENT ASSISTS WITH BED MOBILITY AND REPOSITIONING. PATIENT CONTINUES TO HAVE LOOSE STOOLS, DOCTOR IS AWARE. PATIENT TO DISCHARGE TO SNF WHEN [facility] LESIONS NO LONGER REQUIRE AIRBORNE PRECAUTIONS. CALL LIGHT IN REACH.
--- NOTE | 2019-06-28 06:01 | NUR ---
NO ASSESSMENT CHANGES. NYSTATIN POWDER APPLIED TO ABDOMINAL FOLDS AND GROIN. PT REFUSED NYSTATIN OINTMENT. NO C/O PAIN OVERNIGHT BUT PT DID NEED TYLENOL THIS AM. VSS. AWAITING REHAB PLACEMENT.
[2019-06-28 09:20] LABS: Albumin, Blood 2.5 g/dL (3.4-5.0); Anion Gap 4 mmol/L (6-16); Blood Urea Nitrogen 9 mg/dL (8-24); Bun/Creatinine Ratio 13.8 (12.0-20.0); CO2, Blood 37 mmol/L (21-32); Calcium, Blood 8.4 mg/dL (8.5-10.1); Chloride, Blood 90 mmol/L (98-108); Creatinine, Blood 0.65 mg/dL (0.60-1.20); Glomerular Filtration Rate >60 (60-); Glucose, Blood 158 mg/dL (70-99); Phosphorus, Blood 3.7 mg/dL (2.5-4.9); Potassium, Blood 3.4 mmol/L (3.5-5.5); Sodium, Blood 131 mmol/L (136-145)
--- NOTE | 2019-06-28 19:16 | NUR ---
SHIFT SUMMARY: NO ACUTE CHANGES TO REPORT THSI SHIFT. PT A&O; CALM AND COOPERATIVE WITH CARE. AIRBORNE ISOLATION R/T ACTIVE SHINGLES L THIGH. NO C/O PAIN THIS SHIFT. R AKA; 2-MAX ASSIST OOB. AWAITING D/C TO REHAB. REPORT GIVEN TO ONCOMING RN.
[2019-06-29 05:46] LABS: Albumin, Blood 2.4 g/dL (3.4-5.0); Anion Gap 7 mmol/L (6-16); Blood Urea Nitrogen 10 mg/dL (8-24); Bun/Creatinine Ratio 14.6 (12.0-20.0); CO2, Blood 36 mmol/L (21-32); Calcium, Blood 8.4 mg/dL (8.5-10.1); Chloride, Blood 91 mmol/L (98-108); Creatinine, Blood 0.69 mg/dL (0.60-1.20); Glomerular Filtration Rate >60 (60-); Glucose, Blood 133 mg/dL (70-99); Phosphorus, Blood 3.5 mg/dL (2.5-4.9); Potassium, Blood 3.4 mmol/L (3.5-5.5); Sodium, Blood 134 mmol/L (136-145)
--- NOTE | 2019-06-29 17:33 | NUR ---
SHIFT SUMMARY: NO ACUTE CHANGES TO REPORT THIS SHIFT. PT A&O; CALM AND COOPERATIVE WITH CARE. MEDICATED FOR LLE PAIN PER EMAR. PT & OT FOLLOWING. AWAITING PLACEMENT. WCTM.
--- NOTE | 2019-06-30 04:25 | NUR ---
PT continues in airborn precautions for shingles with areas posterior lt le still with fluid filled blisters. Skin care provided. PT also has old RT AKA and has lt foot wounds. Working with PT and OT non amb baseline due to unable to tolerate prothesis rt aka. Mostly uses bipap continually for advanced lung disease at 4 l bled in. No further diarrhea during night. denies acute pain.
--- NOTE | 2019-06-30 10:00 | NUR ---
MEDICATION DROPPED IN SHEETS. AWAITING REPLACEMENT FROM PHARMACY.
--- NOTE | 2019-06-30 17:54 | NUR ---
SHIFT SUMMARY PLEASANT AND DENIES ANY COMPLAINT THROUGHOUT SHIFT. SHINGLES APPEAR TO BE CRUSTING OVER. UP IN CHAIR FOR SEVERAL HOURS TODAY; REQUIRED CHAIR LIFT TO RETURN TO BED. EATING AND DRINKING WELL. LOOSE STOOLS. POSSIBLE DC ON MONDAY 07/02.
--- NOTE | 2019-07-01 05:40 | NUR ---
SHIFT SUMMARY NO ACUTE CHANGES TONIGHT. SHINGLES TO LLE IS CRUSTED OVER. PT AWAITING SNF PLACEMENT UNTIL SHINGLES CRUSTED OVER. THEREFORE, PT POSS D/C TODAY OR TOMORROW. ON 4L VIA NC AND BIPAP, SWITCHES INDEPENDENTLY BETWEEN THE TWO. CONT PULSE OX IN PLACE, O2 SATS WNL. WILL CONT TO MONITOR AND PROVIDE CARE UNTIL PRESUMED BY ONCOMING RN.
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
--- NOTE | 2019-07-02 04:31 | NUR ---
SHIFT SUMMARY PT HAD NO ISSUES NOTED. PT HAD NO COMPLAINTS. PT HAS BEEN SLEEPING WELL. PT CURRENTLY SLEEPING WITH CPAP AND BREATHING EASY. CALL LIGHT IN REACH.
[2019-07-02 05:57] LABS: Albumin, Blood 2.6 g/dL (3.4-5.0); Anion Gap 4 mmol/L (6-16); Blood Urea Nitrogen 11 mg/dL (8-24); Bun/Creatinine Ratio 14.1 (12.0-20.0); CO2, Blood 36 mmol/L (21-32); Calcium, Blood 8.6 mg/dL (8.5-10.1); Chloride, Blood 92 mmol/L (98-108); Creatinine, Blood 0.78 mg/dL (0.60-1.20); Glomerular Filtration Rate >60 (60-); Glucose, Blood 143 mg/dL (70-99); Phosphorus, Blood 3.9 mg/dL (2.5-4.9); Potassium, Blood 3.8 mmol/L (3.5-5.5); Sodium, Blood 132 mmol/L (136-145)
--- NOTE | 2019-07-02 07:21 | NUR ---
07/02/19 0335 Pt PICC line, white and vance ports, will not draw or flush. Cath ty 1 mg was inserted at 0335 in each port and left for 30 minutes. Neither line would draw at that time, both lines were left for aditional 30 min more x2. 4th attempt samantha lines would draw, 5cc of blood removed from each line, flushed with 20cc NS each. Pt tolerated procedure well.
--- NOTE | 2019-07-02 16:15 | NUR ---
SUMMARY PT STATES COMFORT T/O DAY, PLEASANT AFFECT. DR ROMERO IN TO ASSESS LLE SHINGLES, CONTINUING FLUID FILLED BLISTER SITES, STATE NO TRANSFER TO SNF TODAY. ORAL ZOVIRAX CONTINUES. HIS L LOWER LEG & FOOT HEMOSIDERIN STAINED W PATCHES OF FLAKING DRY SKIN, BARRIER OINT APPLIED. NYSTATIN POWDER TID TO ABD FOLD/MARA AREA RASH WHICH APPEARS TO BE HEALING. BARRIER OINT APPLIED TO BILAT BUTTOCKS EXCORIATION, PILLOWS FOR SUPPORT TO PREVENT SBD. HE HAD PARTIAL BEDBATH TODAY. LINENS CHANGED. PT PARTICIPATED w PHYTHER TODAY HOWEVER DECLINED OOB TO CHAIR. VSS.
--- NOTE | 2019-07-03 04:25 | NUR ---
SHIFT SUMMARY PT HAD LARGE LOOSE STOOL AT BEGINNING OF SHIFT. PT HAS BEEN SLEEPING WELL SINCE EVENING MEDS. PT HAD NO ISSUES NOTED OR COMPLAINTS. PT CURRENTLY SLEEPING AND BREATHING EASY. CALL LIGHT IN REACH.
--- NOTE | 2019-07-03 12:53 | NUR ---
Physician notified Dr. Gonzales notified RE: 2 consecutive episodes of loose stools. Received orders to monitor.
--- NOTE | 2019-07-03 18:08 | NUR ---
Physician notified Dr. Gonzales notified of patient requesting immodium. Orders received.
--- NOTE | 2019-07-03 18:53 | NUR ---
Shift Summary A/Ox3. Pleasant, cooperative with care. No c/o of pain, nausea, or vomiting. Had 3 bouts of loose stools today; otherwise no other complaints. Calls appropriately. VSS, afebrile.
[2019-07-04 09:16] LABS: BASOPHILS ABSOLUTE AUTO 0.04 K/mm3 (0.00-0.23); BASOPHILS PERCENT AUTO 1 % (0-2); EOSINOPHILS ABSOLUTE AUTO 0.28 K/mm3 (0.00-0.68); EOSINOPHILS PERCENT AUTO 4 % (0-6); Hemoglobin 10.7 g/dL (13.5-17.5); IMMATURE GRAN ABSOLUTE AUTO 0.04 K/mm3 (0.00-0.10); IMMATURE GRAN PERCENT AUTO 1 % (0-1); LYMPHOCYTES ABSOLUTE AUTO 1.13 K/mm3 (0.84-5.20); LYMPHOCYTES PERCENT AUTO 16 % (21-46); MONOCYTES ABSOLUTE AUTO 0.68 K/mm3 (0.16-1.47); MONOCYTES PERCENT AUTO 10 % (4-13); Mean Corpuscular HGB 29.6 pg (26.0-34.0); Mean Corpuscular HGB Conc 32.4 g/dL (31.5-36.5); Mean Corpuscular Volume 91 fL (80-100); Mean Platelet Volume 9.7 fL (9.1-12.4); NEUTROPHILS PERCENT AUTO 69 % (41-73); Platelet Count 254 K/mm3 (150-400); RDW Coefficient Variation 16.7 % (11.7-14.2); RDW Standard Deviation 55.7 fL (35.1-46.3); Red Blood Cell Count 3.61 M/mm3 (4.30-5.90); White Blood Cell Count 6.97 K/mm3 (4.00-11.30)
[2019-07-04 09:35] LABS: Anion Gap 7 mmol/L (6-16); Blood Urea Nitrogen 11 mg/dL (8-24); Bun/Creatinine Ratio 14.6 (12.0-20.0); CO2, Blood 33 mmol/L (21-32); Calcium, Blood 8.9 mg/dL (8.5-10.1); Chloride, Blood 90 mmol/L (98-108); Creatinine, Blood 0.75 mg/dL (0.60-1.20); Glomerular Filtration Rate >60 (60-); Glucose, Blood 228 mg/dL (70-99); Magnesium, Blood 1.5 mg/dL (1.6-2.4); Potassium, Blood 4.3 mmol/L (3.5-5.5); Sodium, Blood 130 mmol/L (136-145)
--- NOTE | 2019-07-04 17:03 | NUR ---
Shift Summary A/Ox3. Pleasant and cooperative with care. SBP in the 90's, medicated per EMAR. No c/o pain, N/V/D this shift. No other acute changes this shift. Will continue to monitor.
--- NOTE | 2019-07-05 04:52 | NUR ---
Shift summary. Pt on airborn precautions. shingles on left leg only- no drainage noted. Scabs are all dried over. No c/o discomfort during the night. Bipap on at HS- tolerating well.
[2019-07-05 05:06] LABS: Hematocrit 33.5 % (37.0-53.0); Hemoglobin 10.6 g/dL (13.5-17.5); Mean Corpuscular HGB 29.4 pg (26.0-34.0); Mean Corpuscular HGB Conc 31.6 g/dL (31.5-36.5); Mean Corpuscular Volume 93 fL (80-100); Platelet Count 267 K/mm3 (150-400); RDW Coefficient Variation 16.8 % (11.7-14.2); RDW Standard Deviation 56.1 fL (35.1-46.3); Red Blood Cell Count 3.61 M/mm3 (4.30-5.90); White Blood Cell Count 7.76 K/mm3 (4.00-11.30)
[2019-07-05 05:24] LABS: Anion Gap 6 mmol/L (6-16); Blood Urea Nitrogen 14 mg/dL (8-24); Bun/Creatinine Ratio 16.2 (12.0-20.0); CO2, Blood 34 mmol/L (21-32); Calcium, Blood 8.7 mg/dL (8.5-10.1); Chloride, Blood 88 mmol/L (98-108); Creatinine, Blood 0.86 mg/dL (0.60-1.20); Glomerular Filtration Rate >60 (60-); Glucose, Blood 170 mg/dL (70-99); Magnesium, Blood 1.6 mg/dL (1.6-2.4); Potassium, Blood 4.5 mmol/L (3.5-5.5); Sodium, Blood 128 mmol/L (136-145)
[2019-07-05 10:30] LABS: Osmolality, Urine 277 mos/kg (15-1400)
[2019-07-05 10:44] LABS: Sodium, Urine, Random 39 mmol/L (20-110)
[2019-07-05] MEDS ORDERED: ACYC800 PO (15:12)
[2019-07-05] MEDS ORDERED: ATOR10 PO (15:14)
[2019-07-05] MEDS ORDERED: BUPR75 PO (15:16)
[2019-07-05] MEDS ORDERED: HYDR1TAB94 PO (15:23)
[2019-07-05] MEDS ORDERED: HIGH POTENCY P1 EACH PO (15:24)
[2019-07-05] MEDS ORDERED: Anti-Diarrheal2 MG PO (15:25)
[2019-07-05] MEDS ORDERED: [UNRECOGNIZED DRUG - OTHER] PO (15:29)
[2019-07-05] MEDS ORDERED: MIDO5 PO (15:30)
[2019-07-05] MEDS ORDERED: NYSTATIN TRIAMC TOP (15:31)
[2019-07-05] MEDS ORDERED: OXYM.05NI (15:32)
[2019-07-05] MEDS ORDERED: Protonix40 MG PO (15:33)
[2019-07-05] MEDS ORDERED: TAMS.4ER PO (15:34)
[2019-07-05] MEDS ORDERED: QUET25 PO (15:34)
--- NOTE | 2019-07-05 15:53 | NUR ---
PATIENT GIVEN VERBAL AND WRITTEN DISCHARGE INSTRUCTIONS. ALL QUESTIONS ANSWERED. PATIENT BEING TRANSFERED TO SNF. TRANSPORT HERE AT THIS TIME TO TRANSPORT PATIENT.
--- NOTE | 2019-07-05 16:20 | NUR ---
DISCHARGE AT 1604 PATIENT DISCHARGED TO [facility] VIA TRANSPORT. PT TRANSFERRED WITH SLING LIFT AND RECLINING WHEELCHAIR. PICC LINE REMOVED BY CARAMEL CUTTER HAND. REPORT CALLED TO NURSE SMITH AT [facility], ALL QUESTIONS ANSWERED. PATIENT SIGNED DC FORM. ALL SHINGLES LESIONS APPEARED TO BE SCABBED OVER.
== END 2019-07-05 16:04 | DRG 871 ==
LOC: ER 15:46 → MEDS 20:26 → ICUW 20:26 → PCU 20:26 → MEDS 06-04 16:38 → ICUW 06-06 10:11 → PCU 06-09 12:48 → MEDS 06-14 10:05 → PCU 06-18 08:01 → MEDS 06-22 15:57
PROVIDERS: Emergency Medicine; Family Medicine; Hospitalist; Internal Medicine; Internal Medicine Critical Care Medicine; Internal Medicine Pulmonary Disease; Nurse Practitioner Acute Care; Physician Assistant; ADMIT Hospitalist
PROC: 0W3P8ZZ Control Bleeding in Gastrointestinal Tract, Via Natural or Artificial Opening Endoscopic (ICD-10-PCS; principal; 2019-06-02)
PROC: 30233N1 Transfusion of Nonautologous Red Blood Cells into Peripheral Vein, Percutaneous Approach (ICD-10-PCS; 2019-06-02)
PROC: 3E033XZ Introduction of Vasopressor into Peripheral Vein, Percutaneous Approach (ICD-10-PCS; 2019-06-02)
DX: A41.51 Sepsis due to Escherichia coli [E. coli] (principal); J96.21 Acute and chronic respiratory failure with hypoxia; K26.4 Chronic or unspecified duodenal ulcer with hemorrhage; K22.11 Ulcer of esophagus with bleeding; R57.8 Other shock; J96.22 Acute and chronic respiratory failure with hypercapnia; R65.21 Severe sepsis with septic shock; J44.0 Chronic obstructive pulmonary disease with (acute) lower respiratory infection; J44.1 Chronic obstructive pulmonary disease with (acute) exacerbation; N39.0 Urinary tract infection, site not specified; D62 Acute posthemorrhagic anemia; B02.8 Zoster with other complications; E66.2 Morbid (severe) obesity with alveolar hypoventilation; J20.1 Acute bronchitis due to Hemophilus influenzae; Z99.81 Dependence on supplemental oxygen; G47.33 Obstructive sleep apnea (adult) (pediatric); B96.20 Unspecified Escherichia coli [E. coli] as the cause of diseases classified elsewhere; Z16.12 Extended spectrum beta lactamase (ESBL) resistance; Z89.611 Acquired absence of right leg above knee; E11.9 Type 2 diabetes mellitus without complications; Z79.84 Long term (current) use of oral hypoglycemic drugs; Z79.4 Long term (current) use of insulin; I95.9 Hypotension, unspecified; Z16.30 Resistance to unspecified antimicrobial drugs
CPT/HCPCS: 0097U; 36415; 36430; 36569; 36600; 71045; 71046; 73502; 73560-LT; 80048; 80053; 80069; 81001; 82270; 82330; 82728; 82803; 82941; 82947; 83540; 83550; 83605; 83735; 83880; 83935; 84100; 84145; 84300; 84484; 85014; 85018; 85025; 85027; 86850; 86900; 86901; 86923; 87040; 87070; 87077; 87086; 87185; 87186; 87205; 93005; 93010; 93971; 94640; 94660; 94760; 94762; 96365; 97110; 97162; 97166; 97530; 97535; 99285-25; A9270; A9270-GY; C1751; C9113; J0133; J0696; J1650; J1940; J2185; J2405; J2704; J2765; J2997; J3370; J3475; J3480; J7030; J7040; J7050; J7060; J7120; J7605; P9016

== ENCOUNTER 2019-12-28 11:24 | Inpatient (IN) | payer MEDICARE, OTHER ==
[~2019-12-28] VITALS: Ht 185.4 cm; Wt 113.4 kg
[~2019-12-28 11:24] MED LIST changes: +ACYC800 PO; -ALBU2.5V5 INH; +ATOR10 PO; +Anti-Diarrheal2 MG PO; +BUPR75 PO; +BUPROPION XL150 MG PO; +Cephalexin500 MG PO; +FINA5 PO; +GLIP5 PO; +HIGH POTENCY P1 EACH PO; +HYDR1TAB94 PO; +MIDO5 PO; +NYSTATIN TRIAMC TOP; +Nyamyc15 GM TOP; +OXYM.05NI; -Perforomis20 MCG/2 M INH; +Prinivil10 MG PO; +QUET25 PO; +Sudogest60 MG PO; +TAMS.4ER PO; -TUDORZA PRESS400 MCG INH; +Zantac150 MG PO; +[UNRECOGNIZED DRUG - OTHER] PO; -[UNRECOGNIZED DRUG - OTHER] PO
[2019-12-28 12:04] LABS: BASOPHILS ABSOLUTE AUTO 0.02 K/mm3 (0.00-0.23); BASOPHILS PERCENT AUTO 0 % (0-2); EOSINOPHILS PERCENT AUTO 0 % (0-6); Hematocrit 43.8 % (37.0-53.0); Hemoglobin 13.8 g/dL (13.5-17.5); IMMATURE GRAN ABSOLUTE AUTO 0.11 K/mm3 (0.00-0.10); IMMATURE GRAN PERCENT AUTO 1 % (0-1); LYMPHOCYTES PERCENT AUTO 7 % (21-46); MONOCYTES ABSOLUTE AUTO 1.13 K/mm3 (0.16-1.47); MONOCYTES PERCENT AUTO 8 % (4-13); Mean Corpuscular HGB 27.7 pg (26.0-34.0); Mean Corpuscular HGB Conc 31.5 g/dL (31.5-36.5); Mean Corpuscular Volume 88 fL (80-100); Mean Platelet Volume 11.4 fL (9.1-12.4); NEUTROPHILS ABSOLUTE AUTO 11.29 K/mm3 (1.96-9.15); NEUTROPHILS PERCENT AUTO 83 % (41-73); Platelet Count 235 K/mm3 (150-400); RDW Coefficient Variation 17.6 % (11.7-14.2); RDW Standard Deviation 56.6 fL (35.1-46.3); Red Blood Cell Count 4.98 M/mm3 (4.30-5.90); White Blood Cell Count 13.55 K/mm3 (4.00-11.30)
[2019-12-28 12:24] LABS: Alanine Aminotransfer (ALT/SGP 21 U/L (12-78); Albumin, Blood 3.2 g/dL (3.4-5.0); Albumin/Globulin Ratio 0.7 (0.8-1.8); Alk Phos 62 U/L (50-136); Anion Gap 8 mmol/L (6-16); Aspartate Aminotrans (AST/SGOT 18 U/L (12-37); Bilirubin, Total 0.9 mg/dL (0.1-1.0); Blood Urea Nitrogen 34 mg/dL (8-24); Bun/Creatinine Ratio 38.2 (12.0-20.0); CO2, Blood 33 mmol/L (21-32); Calcium, Blood 9.6 mg/dL (8.5-10.1); Chloride, Blood 94 mmol/L (98-108); Creatinine, Blood 0.89 mg/dL (0.60-1.20); Globulin, Blood 4.6 g/dL (2.2-4.0); Glomerular Filtration Rate >60 (60-); Glucose, Blood 178 mg/dL (70-99); Potassium, Blood 3.6 mmol/L (3.5-5.5); Sodium, Blood 135 mmol/L (136-145); Total Protein, Blood 7.8 g/dL (6.4-8.2); Troponin I <0.015 ng/mL (0.000-0.040)
[2019-12-28] MEDS ORDERED: Perforomis20 MCG/2 M NEB (14:45)
[2019-12-28] MEDS ORDERED: SPIRIVA RESPIMAT4 GM INH (14:46)
[2019-12-28] MEDS ORDERED: Protonix40 MG PO (14:49)
[2019-12-28] MEDS ORDERED: ALBU90OI INH (14:49)
[2019-12-28] MEDS ORDERED: Lasix40 MG PO (14:49)
[2019-12-28] MEDS ORDERED: TUDORZA PRESS400 MCG INH (14:51)
[2019-12-28] MEDS ORDERED: Glyburide-Metf1 EAC2 PO (14:53)
[2019-12-28] MEDS ORDERED: TAMS.4ER PO (14:53)
[2019-12-28] MEDS ORDERED: Aspirin EC81 MG PO (15:00)
[2019-12-28] MEDS ORDERED: Vitamin D2000 UNIT PO (15:00)
[2019-12-28 18:20] LABS: Source, Urine Clean Catch
[2019-12-28 18:24] LABS: Bilirubin, Urine Neg (Neg); Blood, Urine Neg (Neg); Glucose Qualitative, Urine Neg (Neg); Ketones, Urine Neg (Neg); Leukocyte Esterase, Urine Neg (Neg); Nitrite, Urine Neg (Neg); Protein, Urine Neg (Neg); Urobilinogen, Urine NORM (Normal)
[2019-12-28 18:26] LABS: Appearance, Urine Clear (Clear); Color, Urine Yellow (P-Yellow)
--- NOTE | 2019-12-28 19:05 | NUR ---
REPORT GIVEN TO NOC SHIFT RN. PATIENT REMAINS ON 6LNC. REPORT IMPROVEMENT IN SOB. CONT BIOX IN PLACE.
[2019-12-28 19:33] LABS: Adenovirus Not Detected (NOT DETECT); Bordetella pertussis Not Detected (NOT DETECT); Chlamydophila pneumoniae Not Detected (NOT DETECT); Coronavirus 229E Not Detected (NOT DETECT); Coronavirus HKU1 Not Detected (NOT DETECT); Coronavirus NL63 Not Detected (NOT DETECT); Coronavirus OC43 Not Detected (NOT DETECT); Human Metapneumovirus Not Detected (NOT DETECT); Human Rhinovirus/Enterovirus Not Detected (NOT DETECT); Influenza A/2009-H1 Not Detected (NOT DETECT); Influenza A/H1 Not Detected (NOT DETECT); Influenza A/H3 Not Detected (NOT DETECT); Influenza B Not Detected (NOT DETECT); Mycoplasma pneumoniae Not Detected (NOT DETECT); Parainfluenza Virus 1 Not Detected (NOT DETECT); Parainfluenza Virus 2 Not Detected (NOT DETECT); Parainfluenza Virus 3 Not Detected (NOT DETECT); Parainfluenza Virus 4 Not Detected (NOT DETECT); Respiratory Syncytial Virus Detected (NOT DETECT)
--- NOTE | 2019-12-28 19:45 | NUR ---
CARE ASSUMPTION PT A&O X4. VSS. SPO2 > 90% ON 5L NC. PT RESPIRATIONS EVEN & UNLABORED. PT REPORTS IMPROVEMENT AFTER HAVING HAD BREATHING TX. LUNG SOUNDS COARSE W/ WHEZE ON L SIDE, DIM IN BASES. MONITOR SHOWS AFIB, HR 90's. PT W/ LLE BROWN/RED DISCOLORATION. R AKA. PT DENIES PAIN/DISCOMFORT. WILL CONTINUE TO MONITOR AND PROVIDE CARE.
--- NOTE | 2019-12-29 00:47 | NUR ---
UPDATE PT SLEEPING HEAVILY. WAKES W/ VERBAL STIMULATION W/ TOUCH. PT TRANSITIONED FROM 5L NC TO BIPAP: 25/04, FIO2 60% @ APPROX 2145 BEFORE GOING TO SLEEP W/ RR 18-26. WILL CONTINUE TO MONITOR AND PROVIDE CARE.
[2019-12-29 03:59] LABS: BASOPHILS ABSOLUTE AUTO 0.01 K/mm3 (0.00-0.23); BASOPHILS PERCENT AUTO 0 % (0-2); EOSINOPHILS PERCENT AUTO 0 % (0-6); Hematocrit 41.3 % (37.0-53.0); Hemoglobin 12.6 g/dL (13.5-17.5); IMMATURE GRAN ABSOLUTE AUTO 0.08 K/mm3 (0.00-0.10); IMMATURE GRAN PERCENT AUTO 1 % (0-1); LYMPHOCYTES ABSOLUTE AUTO 0.55 K/mm3 (0.84-5.20); LYMPHOCYTES PERCENT AUTO 6 % (21-46); MONOCYTES ABSOLUTE AUTO 0.25 K/mm3 (0.16-1.47); MONOCYTES PERCENT AUTO 3 % (4-13); Mean Corpuscular HGB 27.2 pg (26.0-34.0); Mean Corpuscular HGB Conc 30.5 g/dL (31.5-36.5); Mean Corpuscular Volume 89 fL (80-100); Mean Platelet Volume 10.7 fL (9.1-12.4); NEUTROPHILS PERCENT AUTO 90 % (41-73); Platelet Count 192 K/mm3 (150-400); RDW Coefficient Variation 17.7 % (11.7-14.2); RDW Standard Deviation 58.4 fL (35.1-46.3); Red Blood Cell Count 4.63 M/mm3 (4.30-5.90); White Blood Cell Count 8.69 K/mm3 (4.00-11.30)
[2019-12-29 04:22] LABS: Alanine Aminotransfer (ALT/SGP 19 U/L (12-78); Albumin, Blood 2.8 g/dL (3.4-5.0); Albumin/Globulin Ratio 0.6 (0.8-1.8); Alk Phos 53 U/L (50-136); Anion Gap 6 mmol/L (6-16); Aspartate Aminotrans (AST/SGOT 10 U/L (12-37); Bilirubin, Total 0.8 mg/dL (0.1-1.0); Blood Urea Nitrogen 40 mg/dL (8-24); Bun/Creatinine Ratio 43.4 (12.0-20.0); CO2, Blood 37 mmol/L (21-32); Calcium, Blood 9.3 mg/dL (8.5-10.1); Chloride, Blood 94 mmol/L (98-108); Creatinine, Blood 0.92 mg/dL (0.60-1.20); Globulin, Blood 4.4 g/dL (2.2-4.0); Glomerular Filtration Rate >60 (60-); Glucose, Blood 287 mg/dL (70-99); Magnesium, Blood 1.9 mg/dL (1.6-2.4); Potassium, Blood 3.4 mmol/L (3.5-5.5); Sodium, Blood 137 mmol/L (136-145); Total Protein, Blood 7.2 g/dL (6.4-8.2)
--- NOTE | 2019-12-29 06:08 | NUR ---
SHIFT SUMMARY PT CONTINUES TO BE A&O X4, VSS. PT TOLERATING BIPAP T/O SHIFT. MONITOR SHOWS AFIB, HR 80's-90's. NO EVENTS OVERNIGHT. WILL CONTINUE TO MONITOR AND PROVIDE CARE UNTIL REPORT OFF TO DAY SHIFT RN.
--- NOTE | 2019-12-29 10:59 | NUR ---
1030 RECEIVED REPORT FROM [employer] SPECIAL AGENT. PT TX TO HERE 1049
--- NOTE | 2019-12-29 11:00 | NUR ---
PT SETTLED TO BED, URINAL AT BEDSIDE. PT A/O. DENIES PAIN. ON 5L O2. TALKATIVE. PLEASANT A/O. BED IN LOW POSITION,C ALL LITE IN REACH, CALLS APPROP
--- NOTE | 2019-12-29 18:14 | NUR ---
PT PLEASANT SINCE TRANSFER. NO C/O PAIN. STATES MOVES ABOUT BED PRETTY WELL AND CAN ROLL AND KNOWS WHEN NEEDS TURN. IS CONT. AND STATES C&D AT THIS TIME. URINAL AT BEDSIDE. CONTINUES ON 4L O2. NO OTHER CONCERNS AT THIS TIME. BED IN [facility],C ALL LITE IN [facility], CALLS APPROP
--- NOTE | 2019-12-29 22:53 | NUR ---
PT RESTING QUIETLY. WAS AWAKENED FOR MEDS. TOLERATED MEDS WELL. ALERT AND ORIENTED. DENIED PAIN. RESPS COARSE TO AUSCULTATION, USING BI PAP. CALL LIGHT IN REACH.
--- NOTE | 2019-12-30 00:24 | NUR ---
PT COMPLAINED THAT THE IV AZITHROMYCIN CAUSED BURNING ON ENTRY. MD STONE UNLOADER NOTIFIED AND MED CHANGED TO ORAL. CALL LIGHT IN REACH
[2019-12-30 05:03] LABS: BASOPHILS ABSOLUTE AUTO 0.02 K/mm3 (0.00-0.23); BASOPHILS PERCENT AUTO 0 % (0-2); EOSINOPHILS PERCENT AUTO 0 % (0-6); Hematocrit 40.2 % (37.0-53.0); Hemoglobin 12.5 g/dL (13.5-17.5); IMMATURE GRAN ABSOLUTE AUTO 0.09 K/mm3 (0.00-0.10); IMMATURE GRAN PERCENT AUTO 1 % (0-1); LYMPHOCYTES ABSOLUTE AUTO 0.62 K/mm3 (0.84-5.20); LYMPHOCYTES PERCENT AUTO 4 % (21-46); MONOCYTES ABSOLUTE AUTO 1.18 K/mm3 (0.16-1.47); MONOCYTES PERCENT AUTO 8 % (4-13); Mean Corpuscular HGB 27.5 pg (26.0-34.0); Mean Corpuscular HGB Conc 31.1 g/dL (31.5-36.5); Mean Corpuscular Volume 88 fL (80-100); Mean Platelet Volume 11.4 fL (9.1-12.4); NEUTROPHILS ABSOLUTE AUTO 12.71 K/mm3 (1.96-9.15); NEUTROPHILS PERCENT AUTO 87 % (41-73); Platelet Count 250 K/mm3 (150-400); RDW Coefficient Variation 17.5 % (11.7-14.2); RDW Standard Deviation 56.5 fL (35.1-46.3); Red Blood Cell Count 4.55 M/mm3 (4.30-5.90); White Blood Cell Count 14.62 K/mm3 (4.00-11.30)
--- NOTE | 2019-12-30 05:24 | NUR ---
PT REMAINS ON DROPLET PRECAUTIONS FOR RSV. ALERT AND ORIENTED. USING URINAL AND CALLS APPROPRIATELY FOR THE BEDPAN. STILL ON BI PAP WITH HOB ELEVATED FOR BREATHIHG COMFORT. CALL LIGHT IN REACH. VOICED AT HS THAT IV ANTIBIOTICS WERE PAINFUL INFUSING, CHANGED IV ABX TO PO.
[2019-12-30 05:58] LABS: Anion Gap 4 mmol/L (6-16); Blood Urea Nitrogen 47 mg/dL (8-24); Bun/Creatinine Ratio 57.2 (12.0-20.0); CO2, Blood 37 mmol/L (21-32); Calcium, Blood 9.6 mg/dL (8.5-10.1); Chloride, Blood 94 mmol/L (98-108); Creatinine, Blood 0.82 mg/dL (0.60-1.20); Glomerular Filtration Rate >60 (60-); Glucose, Blood 199 mg/dL (70-99); Potassium, Blood 3.6 mmol/L (3.5-5.5); Sodium, Blood 135 mmol/L (136-145)
--- NOTE | 2019-12-30 13:46 | NUR ---
PCU ENTRY LEVEL PARALEGAL, CINDY CALLED AND REPORTED A 5 BEAT RUN OF VTAC ON THE PATIENT AND SENT UP THE STRIP. RN CALLED DR. ANSARI AND INFORMED HIM OF THIS FINDING AND REPORTED THAT THE PATIENT WAS ASYMPTOMATIC. DR. ANSARI ASKED THE RN TO KEEP AN EYE ON THE PATIENT BUT NO INTERVENTIONS.
--- NOTE | 2019-12-30 17:09 | NUR ---
PATIENT IS ALERT AND ORIENTED AND COOPERATIVE WITH CARE. REPORTS IMPROVED BREATHING. NO COMPLAINTS OF PAIN. HE HAD A BEDBATH THIS AFTERNOON. SWITCHES FROM CPAP TO NC INDEPENDENTLY. HE DID HAVE A 5 BEAT RUN OF VTAC THIS AFTERNOON. WILL CONTINUE TO MONITOR
--- NOTE | 2019-12-31 02:21 | NUR ---
SOB AROUND 0200 PT BECAME EXTREMELY DYSPNIC. BIPAP WAS IN PLACE WITH 16/10 SETTING WITH 6L BLEED IN PER RT. SATS RANGE BETWEEN THE UPPER 70'S AND MID 80'S. LUNG SOUNDS COURSE UPON AUSCULTATION. PT REPORTS THAT HE HAD NOT REMOVED HIS MASK AND WAS JUST SITTING UP IN BED WHEN THE SOB CAME ON. RT CALLED TO EVALUATE AND AND NOTIFIED THAT LUNG SOUNDS WERE COURSE UPON THEIR AUSCULATION. PT IS NOT OVER ON HIS ORAL INTAKE. CALLED AND NOTIFED OF PT INCREASED SOB AND INCREASED O2 SETTINGS OF 15L BLEED IN ON BIPAP AND 10 L VIA NC. ONE TIME DOSE OF 40 MG LASIKS ORDERED BY PROVIDER.
--- NOTE | 2019-12-31 04:54 | NUR ---
SHIFT SUMMARY PT HAS RESTED OFF AND ON. PT HAS HAD SOME SEVERE DYSPNEA THIS SHIFT REQUIRING INCREASED O2 NEEDS DR. CALVIN CALLED AND NOTIFIED AND AND A 1X DOSE OF LASIKS WAS GIVEN. PT BREATHING HAS IMPROVED AFTER LASIKS AND PT IS PUTTING OUT ADEQUATE URINE. LUNGS COURSE UPON AUSCULTATION. PT HAS BEEN PLESANT AND COOPERATIVE WITH CARE. HE HAS DENIED NEEDS FOR MOST OF THE NIGHT. VITALS ARE STABLE. BED IN LOWEST POSITION, CALL LIGHT WITHIN REACH. WILL CONTINUE TO MONITOR AND REPORT TO ONCOMING RN.
--- NOTE | 2019-12-31 17:55 | NUR ---
SHIFT SUMMARY PT ALERT AND ORIENTED. VS STABLE. O2 SATS HAVE REMAIN ABOVE 90%. PT TITRATED FROM 10L NC AT BEGINNING OF SHIFT TO 5L NC AT THIS TIME. PT USES HOME CPAP NEEDED FOR SLEEPING. PT REPORTS BREATHING HAS IMPROVED THIS SHIFT. PT DENIES ANY PAIN. PT VOIDING USING THE URINAL AT BEDSIDE AND BEDPAN NEEDED. PT ABLE TO REPOSITION HIMSELF IN BED. WILL CONTINUE TO MONITOR AND REPORT TO ONCOMING RN. CALL LIGHT IN REACH.
[2020-01-01 05:59] LABS: Hematocrit 42.5 % (37.0-53.0); Mean Corpuscular HGB 27.1 pg (26.0-34.0); Mean Corpuscular HGB Conc 30.6 g/dL (31.5-36.5); Mean Corpuscular Volume 89 fL (80-100); Mean Platelet Volume 10.7 fL (9.1-12.4); Platelet Count 281 K/mm3 (150-400); RDW Coefficient Variation 17.5 % (11.7-14.2); RDW Standard Deviation 57.5 fL (35.1-46.3); Red Blood Cell Count 4.79 M/mm3 (4.30-5.90); White Blood Cell Count 14.87 K/mm3 (4.00-11.30)
[2020-01-01 06:14] LABS: Anion Gap 3 mmol/L (6-16); Blood Urea Nitrogen 34 mg/dL (8-24); Bun/Creatinine Ratio 43.9 (12.0-20.0); CO2, Blood 42 mmol/L (21-32); Chloride, Blood 93 mmol/L (98-108); Creatinine, Blood 0.77 mg/dL (0.60-1.20); Glomerular Filtration Rate >60 (60-); Glucose, Blood 134 mg/dL (70-99); Potassium, Blood 3.2 mmol/L (3.5-5.5); Sodium, Blood 138 mmol/L (136-145)
--- NOTE | 2020-01-01 07:22 | NUR ---
SUMMARY PT HAD NO ISSUES UNTIL THIS AM. PT BEGAN TO DESAT SLOWLY. PT WAS ASSESSED AND FOUND TO HAD DIM/ TIGHT LS. DR CALVIN CALLED AND ORDERED LASIX. PT RESPONDED WELL W/ INCREASED URINE OUTPUT, INCREASED SPO2 AND DEEPER BREATHS. PT NEVER DID REPORT ANY SOB THIS AM. PT REPORTS BETTER BREATHING NOW. PT CURRENTLY AWAKE AND BREATHING EASY. CALL LIGHT IN REACH.
--- NOTE | 2020-01-01 17:09 | NUR ---
PT HAS BEEN DOING WELL TODAY. PT WAS UP TO CHAIR WITH PHYSICAL THERAPY AND WAS ABLE TO DO A STAND PIVOT WITH HELP TO GET BACK TO BED. PT DENIES PAIN AND HAS BEEN ON HIS HOME CPAP MOST OF THE DAY. PT REQUESTED BED LARA IN THE AM AND THEN WAS GIVEN A BED BATH. PT IS HAVING LOOSE STOOL AT THIS TIME. WILL CONTINUE TO MONITOR. PT HAS BEEN MAINTAINING HIS O2 LEVEL AT THIS TIME.
[2020-01-02 06:39] LABS: Anion Gap 5 mmol/L (6-16); Blood Urea Nitrogen 32 mg/dL (8-24); Bun/Creatinine Ratio 53.7 (12.0-20.0); CO2, Blood 38 mmol/L (21-32); Calcium, Blood 9.8 mg/dL (8.5-10.1); Chloride, Blood 90 mmol/L (98-108); Glomerular Filtration Rate >60 (60-); Glucose, Blood 150 mg/dL (70-99); Potassium, Blood 3.6 mmol/L (3.5-5.5); Sodium, Blood 133 mmol/L (136-145)
--- NOTE | 2020-01-02 07:13 | NUR ---
SHIFT SUMMARY PATIENT ALERT AND ORIENTED. WORE HIS BIPAP ALL NIGHT WITH CONTINUOUS BIOX MONITORING. PATIENT DID NOT SLEEP MUCH OVERNIGHT. IV PATENT AND FLUSHED. BED IN LOWEST POSITION WITH WHEELS LOCKED. CALL LIGHT WITHIN REACH. REPORT GIVEN TO ONCOMING TAYLER.
--- NOTE | 2020-01-02 17:24 | NUR ---
PT AOX4 AND COOPERATIVE OF CARE. PT HAS BEEN SITTING IN BED AND DID NOT WANT TO GET UP TODAY. PT SWTICHES FROM NASAL CANULA TO BIPAP ON HIS OWN THROUGHOUT THE DAY. PT KEEPS HEAD OF BED UP CALLS APPROPRIATELY. NO DISTRESS NOTED. PT IS CONTINENT. SPOKE WITH HIS TODAY AND ADDED TWO MEDICATIONS FOR HIM TO HIS EMAR. DID CALL A PRN BREATHING TREATMENT ONCE TODAY. WILL CONITNUE TO MONITOR.
--- NOTE | 2020-01-03 07:44 | NUR ---
01/03/20 0550 PT HAD 5 BEATS OF V.TACH EARLIER AND WAS ASYMPTOMATIC. VITALS STABLE. BIPAP ON ALL NIGHT AT 14 LPM PER RT RECOMMENDATIONS. REFUSED TO LAY ON SIDE AND STAYED IN HIGH [place]ORDON'S POSITION WITH ONLY SHORT TURNS FOR MARA-CARE. MEDIA CONSULTANT OUTSIDE SALES MD NOTIFIED OF V. TACH EPISODE AND STATED "OKAY." NO ORDERS.
--- NOTE | 2020-01-03 16:23 | NUR ---
SHIFT SUMMARY PT HAS HAD NO COMPLAINTS THIS SHIFT. PT USES BIPAP AND NASAL CANNULA THROUGH OUT THE DAY. PT HAS GOOD APPETITE. PT GOT UP TO BSC WITH PHYSICAL THEAPY THIS SHIFT. NO ACUTE CHANGES THIS SHIFT. POSSIBLE DISCHARGE TOMORROW. CALL LIGHT IN REACH. WILL CONTINUE TO MONITOR AND REPORT TO ONCOMING RN.
--- NOTE | 2020-01-03 22:57 | NUR ---
01/03/202114 WATCHING TV. BIPAP ON WITH 10 LPM BLEED-IN. STATES HE GENERALLY IS FEELING BETTER TONIGHT. STATES HE WAS PUT ON HIS REGULAR MEDS/INHALERS AND IS IMPROVING.
[2020-01-03] MEDS ORDERED: Perforomis20 MCG/2 M INH (23:43)
--- NOTE | 2020-01-04 05:45 | NUR ---
01/04/20 0545 AWAKENED PT FOR AM MED. STATES HE SLEPT BETTER AND GENERALLY IS FEELING BETTER WELL. VITALS STABLE. REFUSES TO LAY ON SIDE BUT WILL TURN SIDE TO SIDE FOR CARE/ASSESSMENT. BIPAP ON AT 10LPM TONIGHT.
--- NOTE | 2020-01-04 18:05 | NUR ---
SHIFT SUMMARY PT UP IN CHAIR FOR THE MORNING/EARLY AFTERNOON. PT HAS SHORTNESS OF BREATH WITH ANY EXERTION. OTHER THAN EXERTION, PT HAS NO COMPLAINTS OF SHORTNESS OF BREATH OR PAIN. PT HAS GOOD APPETITE AND VOIDING WITHOUT DIFFICULTY. PLANS FOR PT TO DISCHARGE TO SNF WHEN AVAILABLE. CALL LIGHT IN REACH. WILL CONTINUE TO MONITOR.
--- NOTE | 2020-01-05 06:21 | NUR ---
SHIFT SUMMARY PT IS A 79 Y/O MALE, ADMITTED FOR ACUTE RESPIRATORY FAILURE. HE IS A&O X 4, WITH A PREV R AKA. PT DENIED ANY COMPLAINTS OF PAIN, NAUSEA OR ACUTE SOB. VITAL SIGNS STABLE. PT REMAINED ON HIS BIPAP THROUGH THE NIGHT. NO ACUTE CHANGES IN PT CONDITION NOTED. WILL CONTINUE TO MONITOR AND TREAT PER EMAR UNTIL HAND OFF TO DAY SHIFT RN.
--- NOTE | 2020-01-05 07:54 | NUR ---
A+O, REPORT received from noc nurse, call light in reach, bed in low position, r leg absent, l faint pulse, strong in wrists, strong even emergency department aide, r eye perrl, l eye sluggish pt states normal, ls dim, using urinal, no coverage for cbg 141, held bp med for bp 97/64, will continue to monitor and treat
--- NOTE | 2020-01-05 15:16 | NUR ---
Case Conference Note. Pt currently in droplet isolation and due to current restrictions not able to visit with Pt. Spoke with bedside RN Jean Paul and discussed case. Jean Paul expresses concerns regarding Pt's ability to care for himself. Pt is known to this senior writer from previous visits. Advanced Care planning discussed with Pt in the past. Spoke with [employer] Log Cut Off Saw Operator Kelin and discussed case. Kelin currently on phone with Pt and received verbal permission to for Palliative Care to call and discuss case. Current plan is for Pt to discharge to SNF this afternoon. Attempted to call Pt's Tessie with no success. No voicmail available to leave message.
[2020-01-05] MEDS ORDERED: Prednisone10 MG PO (16:38)
[2020-01-05] MEDS ORDERED: SERT100 PO (16:38)
[2020-01-05] MEDS ORDERED: SPIR25 PO (16:39)
--- NOTE | 2020-01-05 16:54 | NUR ---
wc arrived for pt, he was assisted into it and escorted down to the waiting van, report had been called to uv nurse, medciation reconciled and faxed, iv removed, belongings sent with pt
== END 2020-01-05 16:10 | DRG 871 ==
LOC: ER 11:24 → PCU 16:18 → MEDS 12-29 10:35
PROVIDERS: Emergency Medicine; Hospitalist; Internal Medicine; Nurse Practitioner Acute Care; ADMIT Family Medicine
DX: A41.89 Other specified sepsis (principal); J12.1 Respiratory syncytial virus pneumonia; J96.21 Acute and chronic respiratory failure with hypoxia; I50.33 Acute on chronic diastolic (congestive) heart failure; J44.0 Chronic obstructive pulmonary disease with (acute) lower respiratory infection; J44.1 Chronic obstructive pulmonary disease with (acute) exacerbation; I48.20 Chronic atrial fibrillation, unspecified; I11.0 Hypertensive heart disease with heart failure; E87.6 Hypokalemia; R26.89 Other abnormalities of gait and mobility; E66.01 Morbid (severe) obesity due to excess calories; G47.33 Obstructive sleep apnea (adult) (pediatric); E11.9 Type 2 diabetes mellitus without complications; Z99.81 Dependence on supplemental oxygen; Z87.891 Personal history of nicotine dependence; Z86.718 Personal history of other venous thrombosis and embolism; Z89.611 Acquired absence of right leg above knee; Z68.26 Body mass index [BMI] 26.0-26.9, adult
CPT/HCPCS: 0099U; 36415; 71045; 80048; 80053; 81003; 82947; 83605; 83735; 83880; 84145; 84484; 85025; 85027; 87040; 93005; 93010; 94640; 94660; 94760; 94762; 96374; 96375; 97110; 97162; 97530; 99285-25; A9270-GY; J0456; J0696; J1650; J1940; J2930; J3475; J7050; J7512

== ENCOUNTER 2020-05-23 13:31 | Inpatient (IN) | payer MEDICARE, OTHER ==
[~2020-05-23] VITALS: Ht 180.3 cm; Wt 126.8 kg
[~2020-05-23 13:31] MED LIST changes: +ALBU90OI INH; +Aspirin EC81 MG PO; +GLYBURIDE-METF1 EACH PO; +Lasix40 MG PO; +Perforomis20 MCG/2 M INH; +Perforomis20 MCG/2 M NEB; +Prednisone10 MG PO; +Protonix40 MG PO; +SPIR25 PO; +SPIRIVA RESPIMAT4 GM INH; +TUDORZA PRESS400 MCG INH; +Vitamin D2000 UNIT PO
[2020-05-23] MEDS ORDERED: FLOVENT HFA12 GM INH (13:46)
[2020-05-23] MEDS ORDERED: PROAIR RESPICL90 MCG IH (13:52)
[2020-05-23 14:06] LABS: BASOPHILS ABSOLUTE AUTO 0.05 K/mm3 (0.00-0.23); BASOPHILS PERCENT AUTO 0 % (0-2); EOSINOPHILS ABSOLUTE AUTO 0.12 K/mm3 (0.00-0.68); EOSINOPHILS PERCENT AUTO 1 % (0-6); Hematocrit 40.8 % (37.0-53.0); Hemoglobin 12.4 g/dL (13.5-17.5); IMMATURE GRAN ABSOLUTE AUTO 0.13 K/mm3 (0.00-0.10); IMMATURE GRAN PERCENT AUTO 1 % (0-1); LYMPHOCYTES ABSOLUTE AUTO 1.54 K/mm3 (0.84-5.20); LYMPHOCYTES PERCENT AUTO 11 % (21-46); MONOCYTES ABSOLUTE AUTO 1.72 K/mm3 (0.16-1.47); MONOCYTES PERCENT AUTO 13 % (4-13); Mean Corpuscular HGB 27.8 pg (26.0-34.0); Mean Corpuscular HGB Conc 30.4 g/dL (31.5-36.5); Mean Corpuscular Volume 92 fL (80-100); Mean Platelet Volume 10.6 fL (9.1-12.4); NEUTROPHILS ABSOLUTE AUTO 10.21 K/mm3 (1.96-9.15); NEUTROPHILS PERCENT AUTO 74 % (41-73); Platelet Count 349 K/mm3 (150-400); RDW Coefficient Variation 15.9 % (11.7-14.2); RDW Standard Deviation 53.6 fL (35.1-46.3); Red Blood Cell Count 4.46 M/mm3 (4.30-5.90); White Blood Cell Count 13.77 K/mm3 (4.00-11.30)
[2020-05-23 14:48] LABS: Alanine Aminotransfer (ALT/SGP 20 U/L (12-78); Albumin, Blood 2.8 g/dL (3.4-5.0); Albumin/Globulin Ratio 0.6 (0.8-1.8); Alk Phos 74 U/L (50-136); Anion Gap 6 mmol/L (6-16); Aspartate Aminotrans (AST/SGOT 16 U/L (12-37); Blood Urea Nitrogen 49 mg/dL (8-24); Bun/Creatinine Ratio 42.6 (12.0-20.0); CO2, Blood 32 mmol/L (21-32); Calcium, Blood 9.1 mg/dL (8.5-10.1); Chloride, Blood 96 mmol/L (98-108); Creatinine, Blood 1.15 mg/dL (0.60-1.20); Globulin, Blood 4.4 g/dL (2.2-4.0); Glomerular Filtration Rate >60 (60-); Glucose, Blood 120 mg/dL (70-99); Potassium, Blood 4.5 mmol/L (3.5-5.5); Sodium, Blood 134 mmol/L (136-145); Total Protein, Blood 7.2 g/dL (6.4-8.2); Troponin I 0.028 ng/mL (0.000-0.040)
[2020-05-23 19:11] LABS: International Normalized Ratio 1.34; Prothrombin Time Results 14.1 Sec (9.7-11.5)
[2020-05-23 20:46] LABS: Base Excess Venous 3.5 mmol/L; Bicarbonate Venous 26.1 mmol/L (24.0-30.0); PCO2 Venous 62.3 mmHg (38-42); PO2 Venous 105 mmHg (38-42); pH Blood Venous 7.29 (7.34-7.37)
[2020-05-24 03:56] LABS: BASOPHILS ABSOLUTE AUTO 0.01 K/mm3 (0.00-0.23); BASOPHILS PERCENT AUTO 0 % (0-2); EOSINOPHILS PERCENT AUTO 0 % (0-6); Hemoglobin 12.1 g/dL (13.5-17.5); IMMATURE GRAN ABSOLUTE AUTO 0.16 K/mm3 (0.00-0.10); IMMATURE GRAN PERCENT AUTO 2 % (0-1); LYMPHOCYTES ABSOLUTE AUTO 0.54 K/mm3 (0.84-5.20); LYMPHOCYTES PERCENT AUTO 6 % (21-46); MONOCYTES ABSOLUTE AUTO 0.18 K/mm3 (0.16-1.47); MONOCYTES PERCENT AUTO 2 % (4-13); Mean Corpuscular HGB 28.1 pg (26.0-34.0); Mean Corpuscular HGB Conc 30.3 g/dL (31.5-36.5); Mean Corpuscular Volume 93 fL (80-100); Mean Platelet Volume 10.4 fL (9.1-12.4); NEUTROPHILS ABSOLUTE AUTO 8.19 K/mm3 (1.96-9.15); NEUTROPHILS PERCENT AUTO 90 % (41-73); Platelet Count 294 K/mm3 (150-400); RDW Coefficient Variation 15.9 % (11.7-14.2); RDW Standard Deviation 53.6 fL (35.1-46.3); White Blood Cell Count 9.08 K/mm3 (4.00-11.30)
[2020-05-24 04:16] LABS: Anion Gap 7 mmol/L (6-16); Blood Urea Nitrogen 54 mg/dL (8-24); Bun/Creatinine Ratio 44.3 (12.0-20.0); CO2, Blood 30 mmol/L (21-32); Calcium, Blood 8.5 mg/dL (8.5-10.1); Chloride, Blood 96 mmol/L (98-108); Creatinine, Blood 1.22 mg/dL (0.60-1.20); Glomerular Filtration Rate >60 (60-); Glucose, Blood 223 mg/dL (70-99); Potassium, Blood 4.5 mmol/L (3.5-5.5); Sodium, Blood 133 mmol/L (136-145)
--- NOTE | 2020-05-24 06:38 | NUR ---
patient admitted overnight for acute on chronic respiratory failure. Patient had an increase oxygen demand overnight from 5L to 9L but remains stable. Patient is in no apparent distress and maintaining good oxygen saturations in the low 90s, given his history of COPD. No other significant changes or acute events overnight, will continue to monitor this patient.
--- NOTE | 2020-05-24 18:37 | NUR ---
SHIFT SUMMARY PT IS ALERT AND ORIENTED, WEANED DOWN TO HOME O2 LEVEL OF 4L VIA NC. PT REPORTS DYSPNEA HAS IMPROVED TODAY. PRIOR TO TELEMETRY D/C PT WAS IN A-FIB, RATE CONTROLLED. PT'S STATUS WAS CHANGED TO MEDICAL NO TELE THIS MORNING. OTHER VITALS HAVE REMAINED.
--- NOTE | 2020-05-24 19:13 | NUR ---
Per RN request, I visited Mr. Padron. He smiles easily and denied concerns needs. He allowed me to pray for him, but he did not want to engage in conversation. I will remain available.
--- NOTE | 2020-05-24 20:00 | NUR ---
ASSUMED CARE OF PT AT 1915. REPORT RECEIVED AT BEDSIDE. PT PRESENTS IN BED. ALERT AND ORIENTED. PLEASANT AND COOPERATIVE WITH CARE AND ASSESSMENT. DENIES COMPLAINTS AT THIS TIME. PT ON 4 L/M O2 PER NASAL CANNULA. IS TO WEAR HIS HOME BIPAP THIS NIGHT. WILL REVIEW CHART AND PLAN OF CARE FOR THIS PT.
--- NOTE | 2020-05-25 01:40 | NUR ---
PT TRANSFERRED OUT TO ROOM 309 PER MEDICAL FLOOR STATUS. PT IN AGREEMENT WITH TRANSFER. REPORT CALLED TO TAYLER WOOD. ALLOWED FOR QUESTIONS. PT WITHOUT COMPLAINTS OF DYSPNEA. 4 L/M O2 PER NASAL CANNULA DURING TRANSFER. PT'S HOME BIPAP MACHINE WITH PT FOR TRANSFER.
--- NOTE | 2020-05-25 04:15 | NUR ---
PT TRANSFERRED FROM PCU PER BED. A/O PLEASANT.COT SOB.NO TELE.DENIES CP. RESTING QUIETLY IN BED.
[2020-05-25 04:54] LABS: BASOPHILS ABSOLUTE AUTO 0.01 K/mm3 (0.00-0.23); BASOPHILS PERCENT AUTO 0 % (0-2); EOSINOPHILS PERCENT AUTO 0 % (0-6); Hematocrit 39.4 % (37.0-53.0); Hemoglobin 12.1 g/dL (13.5-17.5); IMMATURE GRAN ABSOLUTE AUTO 0.14 K/mm3 (0.00-0.10); IMMATURE GRAN PERCENT AUTO 1 % (0-1); LYMPHOCYTES ABSOLUTE AUTO 0.49 K/mm3 (0.84-5.20); LYMPHOCYTES PERCENT AUTO 3 % (21-46); MONOCYTES ABSOLUTE AUTO 0.81 K/mm3 (0.16-1.47); MONOCYTES PERCENT AUTO 5 % (4-13); Mean Corpuscular HGB 28.3 pg (26.0-34.0); Mean Corpuscular HGB Conc 30.7 g/dL (31.5-36.5); Mean Corpuscular Volume 92 fL (80-100); Mean Platelet Volume 10.6 fL (9.1-12.4); NEUTROPHILS ABSOLUTE AUTO 13.75 K/mm3 (1.96-9.15); NEUTROPHILS PERCENT AUTO 91 % (41-73); Platelet Count 308 K/mm3 (150-400); RDW Standard Deviation 53.5 fL (35.1-46.3); Red Blood Cell Count 4.27 M/mm3 (4.30-5.90)
[2020-05-25 05:13] LABS: Bun/Creatinine Ratio 48.9 (12.0-20.0); Calcium, Blood 8.7 mg/dL (8.5-10.1); Creatinine, Blood 1.35 mg/dL (0.60-1.20); Potassium, Blood 4.7 mmol/L (3.5-5.5)
[2020-05-25 14:41] LABS: Total Protein, Blood 6.8 g/dL (6.4-8.2)
[2020-05-25 17:40] LABS: Automated BF RBC Count 4.287 M/mm3 (0-0); Automated BF WBC Count 1.543 K/mm3 (0-999)
[2020-05-25 17:42] LABS: Body Fluid WBC Count 1543 /mm3 (0-999)
[2020-05-25 17:44] LABS: RBC Count, Body Fluid 4287000 /mm3 (0-0)
[2020-05-25 17:57] LABS: Glucose, Body Fluid 50 mg/dL
[2020-05-25 18:09] LABS: Total Cell Count, Body Fluid 100
[2020-05-25 18:10] LABS: Appearance, Body Fluid Bloody (Clear); Color, Body Fluid Red (None-Yellow)
[2020-05-25 18:40] LABS: Lactate Dehydrogenase, Body Fl 5283 U/L
--- NOTE | 2020-05-26 04:52 | NUR ---
TELEVISION MECHANIC SUMMARY O2 BLEED IN ON BIPAP HAD TO BE INCREASED FROM 4L TO 5L, SATS NOW 90-92%. PT AAOX4 AND PLEASANT, CALLS APPROPRIATELY. DENIES PAIN, N/V. VSS, WILL CONTINUE TO MONITOR.
[2020-05-26 05:11] LABS: BASOPHILS ABSOLUTE AUTO 0.01 K/mm3 (0.00-0.23); BASOPHILS PERCENT AUTO 0 % (0-2); EOSINOPHILS PERCENT AUTO 0 % (0-6); Hematocrit 39.5 % (37.0-53.0); Hemoglobin 12.3 g/dL (13.5-17.5); IMMATURE GRAN ABSOLUTE AUTO 0.08 K/mm3 (0.00-0.10); IMMATURE GRAN PERCENT AUTO 1 % (0-1); LYMPHOCYTES ABSOLUTE AUTO 0.39 K/mm3 (0.84-5.20); LYMPHOCYTES PERCENT AUTO 3 % (21-46); MONOCYTES ABSOLUTE AUTO 0.87 K/mm3 (0.16-1.47); MONOCYTES PERCENT AUTO 6 % (4-13); Mean Corpuscular HGB 28.5 pg (26.0-34.0); Mean Corpuscular HGB Conc 31.1 g/dL (31.5-36.5); Mean Corpuscular Volume 91 fL (80-100); Mean Platelet Volume 10.7 fL (9.1-12.4); NEUTROPHILS ABSOLUTE AUTO 12.45 K/mm3 (1.96-9.15); NEUTROPHILS PERCENT AUTO 90 % (41-73); NRBC ABSOLUTE 0.02 K/mm3 (0.00-0.02); NRBC Auto 0.1 /100 WBC (0.0-0.2); Platelet Count 294 K/mm3 (150-400); RDW Standard Deviation 54.1 fL (35.1-46.3); Red Blood Cell Count 4.32 M/mm3 (4.30-5.90)
[2020-05-26 05:45] LABS: Bun/Creatinine Ratio 50.3 (12.0-20.0); Calcium, Blood 8.8 mg/dL (8.5-10.1); Creatinine, Blood 1.57 mg/dL (0.60-1.20)
--- NOTE | 2020-05-26 19:56 | NUR ---
SHIFT SUMMARY PT RESTING QUIETLY ON BIPAP AT START OF SHIFT, WITH TV ON. PT REMAINS ON BIPAP ALL DAY, EXCEPT WHEN EATING. PT BECAME ANXIOUS AND SOB MOVING AROUND THIS AM, TRYING TO GET BIPAP BACK ON AFTER BREAKFAST. O2 SATS DECREASED SLIGHTLY AND O2 INCREASED TO 6L, FROM 5L TO ASSIST PT, WHILE ON BIPAP AND N/C BOTH. O2 HAS REMAINED AT 6L. DR CORADO IN TO SEE PT TODAY, REPORTING PT TO STAY ONE MORE DAY AND MAYBE D/C TOMORROW. VS AND LABS HAVE REMAINED STABLE; SEE CHART. PT USES URINAL IN BED. CALL LT IN REACH AND ABLE TO MAKE NEEDS KNOWN. REPORT GIVEN TO ONCOMING RN.
[2020-05-27 04:59] LABS: BASOPHILS ABSOLUTE AUTO 0.02 K/mm3 (0.00-0.23); BASOPHILS PERCENT AUTO 0 % (0-2); EOSINOPHILS ABSOLUTE AUTO 0.01 K/mm3 (0.00-0.68); EOSINOPHILS PERCENT AUTO 0 % (0-6); Hematocrit 41.6 % (37.0-53.0); Hemoglobin 12.9 g/dL (13.5-17.5); IMMATURE GRAN ABSOLUTE AUTO 0.17 K/mm3 (0.00-0.10); IMMATURE GRAN PERCENT AUTO 1 % (0-1); LYMPHOCYTES ABSOLUTE AUTO 0.25 K/mm3 (0.84-5.20); LYMPHOCYTES PERCENT AUTO 1 % (21-46); MONOCYTES PERCENT AUTO 6 % (4-13); Mean Corpuscular HGB 28.1 pg (26.0-34.0); Mean Corpuscular Volume 91 fL (80-100); Mean Platelet Volume 10.7 fL (9.1-12.4); NEUTROPHILS ABSOLUTE AUTO 17.81 K/mm3 (1.96-9.15); NEUTROPHILS PERCENT AUTO 91 % (41-73); NRBC ABSOLUTE 0.03 K/mm3 (0.00-0.02); NRBC Auto 0.2 /100 WBC (0.0-0.2); Platelet Count 246 K/mm3 (150-400); RDW Coefficient Variation 16.1 % (11.7-14.2); RDW Standard Deviation 53.4 fL (35.1-46.3); Red Blood Cell Count 4.59 M/mm3 (4.30-5.90); White Blood Cell Count 19.46 K/mm3 (4.00-11.30)
--- NOTE | 2020-05-27 05:03 | NUR ---
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 PT AAOX4 AND PLEASANT. CALLS APPROPRIATELY. DENIES PAIN. USES CPAP AT NIGHT WITH 7L O2 BLEED IN, 02 SATS 88-92%. PT DOES SEEM TO SAT BETTER ON A NASAL CANULA AT 4L O2. PT LEFT FOOT VERY DRY AND SCALEY, SMALL SKIN CRACK OPENED ON GREAT TOE WITH MINIMAL BLEEDING. APPLIED BANDAGE TO AREA. VSS, WILL CONTINUE TO MONITOR.
[2020-05-27 05:19] LABS: Creatinine, Blood 1.5 mg/dL (0.60-1.20)
--- NOTE | 2020-05-27 17:59 | NUR ---
Shift Summary A/Ox3, pleasant and cooperative. Patient has been sleepy t/o shift sometimes refusing care because of increasing dyspnea with min activity. 2 max assist as patient is morbidly obese and increasingly weak. Per patient request, he has been wearing CPAP all day for comfort. When patient desaturates with movement, O2 ranges from high 70's to low 80's and he requires O2 increase temporarily to 10 L which allows patient to rebound within approximately 30 seconds. At rest, patient requires 6-8L bled into CPAP. Denies pain, nausea, vomiting, diarrhea. Patient is requesting to try puree diet because chewing takes so much energy and increases patient's work of breathing. Will discuss this with Dr. Perkins. XR-chest completed today. No other acute concerns. Will continue to monitor.
--- NOTE | 2020-05-28 04:42 | NUR ---
HYPOTENSION DR. JEWELL CALLED AND NOTIFIED ABOUT PT HYPOTENSTION 92/56 AND INCREASED SOB. LUNGS ARE WITHOUT CRACKLES OR WHEEZING. PT DOES HAVE SOME UPPER CHEST CONGESTION. SOME COUGH BUT HAVE NOT WITNESSED ANY PRODUCTION. SATS MAINTAINED AT 90 ON BIPAP WHILE SLEEPING WITH 6L BLEED IN. RT CALLED AND CONSULTED WITH NO ADDITIONAL RECOMMENDATIONS. BREATHING TREATMENT PROVIDED FOR RELIEF. NO ORDERS FROM DR. CALVIN REGARDING HYPOTENSION OR SOB. PT RESTING IN BED. ASIDE FROM SOB, PT STATES THAT HE FEELS OK. WILL MONITOR.
--- NOTE | 2020-05-28 04:48 | NUR ---
SHIFT SUMMARY PT HAS RESTED MOST OF THE NIGHT, DROWSY, BUT EASILY AROUSES TO VERBAL STIMULI. PT HAS DENIED PAIN WHEN ASKED. SOB WITH EXERTION, AND ALSO AT REST. ATTENDS CHANGES AND REPOSITIONING CAUSES PT TO DESAT WHILE ON BIPAP WITH 6L BLEED IN. SATS RECOVER ONCE SATS ARE DONE. BUT INCREASED O2 TO 7L IS NEEDED TO KEEP SATS AT 90 OR ABOVE WITH TURNS AND CHANGES. LUNGS ARE DIMINISED. THERE IS SOME UPPER CHEST CONGESTION. COUGH HAS NOT BEEN PRODUCTIVE. BREATHING TREATMENTS PROVIDED PER RT. PT A/OX4, PLESANT AND COOPERATIVE. HYPOTENSION THIS SHIFT WITH AM VITALS CHECK. PT ASYMPTOMATIC. HR STABLE. DR. JEWELL CALLED AND NOTIFIED WITH NO NEW ORDERS GIVEN. NO OTHER CHANGES TO REPORT. BED IN LOWEST POSITION, CALL LIGHT WITHIN REACH.
[2020-05-28 05:05] LABS: BASOPHILS ABSOLUTE AUTO 0.03 K/mm3 (0.00-0.23); BASOPHILS PERCENT AUTO 0 % (0-2); EOSINOPHILS ABSOLUTE AUTO 0.01 K/mm3 (0.00-0.68); EOSINOPHILS PERCENT AUTO 0 % (0-6); Hematocrit 42.9 % (37.0-53.0); Hemoglobin 13.2 g/dL (13.5-17.5); IMMATURE GRAN ABSOLUTE AUTO 0.17 K/mm3 (0.00-0.10); IMMATURE GRAN PERCENT AUTO 1 % (0-1); LYMPHOCYTES ABSOLUTE AUTO 0.33 K/mm3 (0.84-5.20); LYMPHOCYTES PERCENT AUTO 2 % (21-46); MONOCYTES ABSOLUTE AUTO 1.57 K/mm3 (0.16-1.47); MONOCYTES PERCENT AUTO 8 % (4-13); Mean Corpuscular HGB 27.9 pg (26.0-34.0); Mean Corpuscular HGB Conc 30.8 g/dL (31.5-36.5); Mean Corpuscular Volume 91 fL (80-100); Mean Platelet Volume 10.4 fL (9.1-12.4); NEUTROPHILS ABSOLUTE AUTO 18.03 K/mm3 (1.96-9.15); NEUTROPHILS PERCENT AUTO 90 % (41-73); NRBC ABSOLUTE 0.02 K/mm3 (0.00-0.02); NRBC Auto 0.1 /100 WBC (0.0-0.2); Platelet Count 211 K/mm3 (150-400); RDW Coefficient Variation 16.4 % (11.7-14.2); RDW Standard Deviation 54.4 fL (35.1-46.3); Red Blood Cell Count 4.73 M/mm3 (4.30-5.90); White Blood Cell Count 20.14 K/mm3 (4.00-11.30)
--- NOTE | 2020-05-28 09:12 | NUR ---
PATIENT HAVING A DIFFICULT TIME CHEWING D/T INCREASE WORK OF BREATHING AND EXHAUSTION, REQUESTED TO TRY PUREE DIET. DR. CORADO NOTIFIED, ORDER RECEIVED FOR PUREE/ADA DIET AND ADVANCE DIET TOLERATED.
--- NOTE | 2020-05-28 11:30 | NUR ---
LONG WALL MINING MACHINE TENDER RAPID REPONSE WAS CALLED BY ACCOUNTS PAYABLE ADMINISTRATOR RENE. RT, NURSING TIN FLIPPER, LONG WALL MINING MACHINE TENDER, CHARGE NURSE, AND DR. CORADO WAS AT BEDSIDE. PATIENT TAKEN TO ICU BY LONG WALL MINING MACHINE TENDER AND RT.
[2020-05-28 12:18] LABS: PO2 Arterial 83.7 mmHg (80-100)
[2020-05-28 12:20] LABS: PCO2 Arterial 70 mmHg (35-45); pH Blood Arterial 7.26 (7.35-7.45)
--- NOTE | 2020-05-28 12:27 | NUR ---
Transfer of Care Patient transferred to ICU 3, report given to Zara. Patient had respiratory distress and saturations were not improving despite increasing 02 to 16L via Bipap. Dr. Perkins ordered in-house transfer to ICU. Tessie was notified of transfer.
[2020-05-28 12:31] LABS: Source, Urine Catheter
[2020-05-28 12:34] LABS: Appearance, Urine Clear (Clear); Bilirubin, Urine Neg (Neg); Blood, Urine Neg (Neg); Color, Urine Yellow (P-Yellow); Glucose Qualitative, Urine Neg (Neg); Ketones, Urine Neg (Neg); Leukocyte Esterase, Urine Neg (Neg); Nitrite, Urine Neg (Neg); Protein, Urine 1+ (Neg); Specific Gravity, Urine 1.015 (1.003-1.022); Urobilinogen, Urine NORM (Normal)
--- NOTE | 2020-05-28 13:06 | NUR ---
TRANSFER PT TRANSFERRED TO ICU 3 AFTER RAPID RESPONSE. REPORT RECEIVED FROM TAYLER VERA. PT ARRIVED ON BIPAP 20/, 75%. PT LOOKING AROUND, RESPONDS APPROPRIATELY WHEN SPOKEN TOO, BUT APPEARS FATIGUED. RR IN THE HIGH 20S. LUNG SOUNDS VERY DIM. STAT ABG AND XR COMPLETED. DR. CORADO GAVE ORDER FOR BOWMAN, PLACED WITHOUT DIFFICULTY WITH CL YELLOW URINE RETURNED. SR IN THE 90S, BP STABLE. NO OTHER REQUESTS FROM PT AT THIS TIME. CONTINUING TO MONITOR.
--- NOTE | 2020-05-28 16:44 | NUR ---
SHIFT SUMMARY PT HAS DONE WELL WITH THE V60 BIPAP SINCE ARRIVAL TO ICU. ATTEMPTED ONCE THIS AFTERNOON TO GIVE PT A BREAK ON 6L/NC, BUT PT DESATURATED TO THE MID 80S WITHIN 5 MINUTES AND BREATHING APPEARED MORE LABORED. BIPAP REPLACED AND PT RECOVERED QUICKLY. PT'S LUNGS REMAIN QUITE DIM, BUT MOVING A LITTLE MORE AIR THAN WHEN HE FIRST ARRIVED. QUIET INSPIRATORY WHEEZE ON THE L SIDE. SR, BP STABLE. PT IS ALERT AND ORIENTED. SPOKE WITH PT'S AND PROVIDED HER WITH UPDATE. NO OTHER CONCERNS AT THIS TIME. CONTINUING TO MONITOR.
--- NOTE | 2020-05-28 17:42 | NUR ---
ECTOPY DR. CORADO NOTIFIED OF PT HAVING 12 BEAT, THEN 7 BEAT RUN OF V-TACH. PT DENIES ANY SYMPTOMS WITH RUNS. PT DIDN'T HAVE ANY LABS THIS AM. DR. CORADO NOTIFIED AND RECEIVED ORDER FOR BMP AND MG LEVEL.
[2020-05-28 18:20] LABS: Bun/Creatinine Ratio 67.9 (12.0-20.0); Calcium, Blood 8.9 mg/dL (8.5-10.1); Creatinine, Blood 1.31 mg/dL (0.60-1.20); Magnesium, Blood 2.5 mg/dL (1.6-2.4); Potassium, Blood 4.8 mmol/L (3.5-5.5)
--- NOTE | 2020-05-28 19:00 | NUR ---
ASSUMED CARE OF PATIENT. RECEIVED REPORT FROM TAYLER DERAS. PATIENT ON BIPAP, CURENT SETTINGS 20/10 WITH FIO2 55%. PATIENT APPEARS TO BE MOVING AIR WELL; NO DYSPNEA NOTED; SATS WNL.
--- NOTE | 2020-05-28 20:30 | NUR ---
PATIENT INCONTINENT OF LARGE, SOFT, BROWN BM. WHILE PATIENT BEING CLEANED WITH HOB APPROX. 15 DEGREES, SATS DROPPED TO HIGH 80'S AND PATIENT BECAME DYSPNEIC. FIO2 INCREASED TO 100% WITH SATS IMPROVING TO 92% AND PATIENT STATES HE CAN BREATHE BETTER. AFTER REPOSITIONING PATIENT ON HIS LEFT SIDE; SATS 97%; FIO2 GRADUALLY WEANED BACK DOWN TO 55%. NOTIFIED RT REGARDING ABOVE. NOTED THAT BRIDGE OF PATIENT'S NOSE REDDENED DUE TO BIPAP MASK. NOTIFIED RT THAT PATIENT WILL NEED FOAM DRESSING PLACED; RT STATES HE WILL ARRIVE SOON TO PLACE DRESSING.
--- NOTE | 2020-05-29 01:00 | NUR ---
PATIENT CALLED AT 0100 C/O DIFFICULTY BREATHING; SATS 88%; RR 30'S; RT AT BEDSIDE TO ADMINISTER NEBULIZER TREATMENT. 1315: PATIENT CALLED C/O CONTINUED DIFFICULTY BREATHING; FIO2 INCREASED TO 100%; SATS 88%; BREATH SOUNDS DIMINISHED BILATERALLY; RT CALLED. 1330: CALLED DR. DORMAN WITH ABOVE; STATES HE WILL COME TO HOSPITAL TO SEE PATIENT, AND POSSIBLY INTUBATE. UPDATED RT ON ABOVE.
--- NOTE | 2020-05-29 02:00 | NUR ---
0200: DR. DORMAN AT BEDSIDE TO EVALUATE PATIENT FOR POSSIBLE INTUBATION. MD ORDERED ABG AND PORTABLE CXR. BOTH DONE AND DR. DORMAN AGAIN AT BEDSIDE TO SPEAK WITH PATIENT ABOUT RESULTS. PATIENT STATES HE IS TIRED AND IS HAVING DIFFICULTY BREATHING. 0230: DR. DORMAN AND RT AT BEDSIDE READY TO INTUBATE PATIENT. GLIDASCOPE AND ALL EQUIPMENT PRESENT AT BEDSIDE. PATIENT GIVEN VERSED AND PROPOFOL PER MD ORDER. PATIENT INTUBATED SUCCESSFULLY WITH #8 TUBE, 24 CM AT LIPS. #16 FR OG TUBE PLACED. 0235: PATIENT HYPOTENSIVE. MD ORDERED NS 1 LITRE FLUID BOLUS W.O.; FLUIDS STARTED INFUSING. SECOND AND THIRD IV STARTED BY ANOTHER RN. PATIENT REMAINS HYPOTENSIVE. 0300: ALBUMIN 100 ML X 2 W.O. INFUSED AND SECOND NS 1 LITRE BAG STARTED INFUSING W.O. LABS SENT. 0330: PATIENT BECOMING RESTLESS; BILATERAL WRIST RESTRAINTS APPLIED PER MD ORDER. 0335: PROPOFOL STARTED AT 10MCG/KG/MIN. 0345: ANTIBIOTICS STARTED.
[2020-05-29 02:10] LABS: PCO2 Arterial 71.9 mmHg (35-45); pH Blood Arterial 7.28 (7.35-7.45)
[2020-05-29 03:40] LABS: PCO2 Arterial 71.1 mmHg (35-45); PO2 Arterial 70.7 mmHg (80-100); pH Blood Arterial 7.25 (7.35-7.45)
[2020-05-29 03:49] LABS: BASOPHILS ABSOLUTE AUTO 0.06 K/mm3 (0.00-0.23); BASOPHILS PERCENT AUTO 0 % (0-2); EOSINOPHILS ABSOLUTE AUTO 0.01 K/mm3 (0.00-0.68); EOSINOPHILS PERCENT AUTO 0 % (0-6); Hematocrit 42.7 % (37.0-53.0); Hemoglobin 13.2 g/dL (13.5-17.5); IMMATURE GRAN ABSOLUTE AUTO 0.33 K/mm3 (0.00-0.10); IMMATURE GRAN PERCENT AUTO 1 % (0-1); LYMPHOCYTES ABSOLUTE AUTO 0.29 K/mm3 (0.84-5.20); LYMPHOCYTES PERCENT AUTO 1 % (21-46); MONOCYTES ABSOLUTE AUTO 2.84 K/mm3 (0.16-1.47); MONOCYTES PERCENT AUTO 7 % (4-13); Mean Corpuscular HGB 28.1 pg (26.0-34.0); Mean Corpuscular HGB Conc 30.9 g/dL (31.5-36.5); Mean Corpuscular Volume 91 fL (80-100); Mean Platelet Volume 11.2 fL (9.1-12.4); NEUTROPHILS ABSOLUTE AUTO 36.15 K/mm3 (1.96-9.15); NEUTROPHILS PERCENT AUTO 91 % (41-73); NRBC ABSOLUTE 0.03 K/mm3 (0.00-0.02); NRBC Auto 0.1 /100 WBC (0.0-0.2); Platelet Count 205 K/mm3 (150-400); RDW Coefficient Variation 16.8 % (11.7-14.2); RDW Standard Deviation 55.2 fL (35.1-46.3); Red Blood Cell Count 4.69 M/mm3 (4.30-5.90); White Blood Cell Count 39.68 K/mm3 (4.00-11.30)
[2020-05-29 04:07] LABS: Bun/Creatinine Ratio 59.2 (12.0-20.0); Calcium, Blood 8.7 mg/dL (8.5-10.1); Creatinine, Blood 1.52 mg/dL (0.60-1.20); Potassium, Blood 5.1 mmol/L (3.5-5.5)
--- NOTE | 2020-05-29 06:11 | NUR ---
PATIENT HAD APPROXIMATELY 16 BEAT RUN OF PRESUMED V.TACH. NO CHANGE IN BP.
--- NOTE | 2020-05-29 07:00 | NUR ---
SHIFT SUMMARY: PATIENT INTUBATED WITH FIO2 UP TO 100%, SATS 94%. PATIENT IS SEDATED WITH PROPOFOL 15MCG/KG/MIN; BILATERAL WRIST RESTRAINTS IN PLACE TO PREVENT PATIENT FROM PULLING OUT LINES/TUBES. RHYTHM ATRIAL FIBRILLATION. MAP 60-65; LEVOPHED INCREASED TO 5MCG/MIN. RESPIRATIONS APPEAR SOMEWHAT LABORED WITH ACCESSORY MUSCLE USE NOTED; BREATH SOUNDS DIMINISHED BILATERALLY. OGT TO LIWS WITH SCANT AMOUNT OF GREEN DRAINAGE NOTED. BOWMAN CATH. PATENT DRAINING CLEAR, YELLOW URINE-ADEQUATE AMOUNTS. PIV'S X 3 WNL. REPORT GIVEN TO TAYLER REGALADO.
--- NOTE | 2020-05-29 08:46 | NUR ---
CARE ASSUMED ASSESSMENT COMPLETED, PT ON VENT AC 16, Vt 500, PEEP 7, FIO2 100%, SPO2 94%, RR 22-30. PROPOFOL AT 15MCG/KG/MIN. INCREASING LEVO TO KEEP MAP >65, AWARE OF NEED FOR LINE PLACEMENT, LEVO CURRENTLY AT 10MCG/MIN VIA PERIPHERAL LINE WITH MAP 55-62. HR 90-105 AFIB WITH BBB, LS DIMINISHED T/O, THICK GREEN SPUTUM FROM ETT. LLE WITH DARK RED/BROWN DISCOLORATION AND FLAKY SKIN, LE PULSES BY DOPPLER ONLY. IN TO SEE PATIENT, AWARE OF VS AND INCREASING NEEDS FOR FIO2 T/O NOC, AWAITING NEW ORDERS. PT HAS INTERMITTENT DUSKY DISCOLORATION TO FACE, MOST PROMINENTLY NOTED AFTER REPOSITION. COLOR IS PALE AT THIS TIME, NOT DUSKY. ATTEMPTED TO ADMINISTER MEDS VIA OGT, UNABLE TO FLUSH OR ASPIRATE. OGT PULLED BACK 4CM, PLACEMENT COMFIRMED WITH GASTRIC AUSCULTATION OF AIR PUSH, STILL UNABLE TO FLUSH. DR. ANGELO.
--- NOTE | 2020-05-29 11:27 | NUR ---
family notified of decline and worsening clinical status. and daughter were adamant after caredul discussion that he wanted cpr and recusitation. physician at bedside w2ill notify family and will follow up with plan for funneral and support.
--- NOTE | 2020-05-29 11:45 | NUR ---
END OF LIFE NOTE PICC LINE PLACED, CONFIRMED WITH XR. DURING LINE PLACEMENT, PT'S BP DROPPED, PT BECAME CLAMMY AND DIAPHORETIC, HR 60'S-100 AFIB. LEVO INCREASED UP TO 25MCG, SKIN MOTTLED. AT BEDSIDE, PT PREPARED FOR IMPENDING CODE. CODE BLUE CALLED AT 1113, NOTIFIED, SEE CODE SHEET. DOCTOR, RT, NURSING STAFF, PALLIATIVE RN, AND SOCIAL DIRECTOR AT BEDSIDE. PT RECEIVED 3 ROUNDS EPI AND CPR, REGAINED PULSE BRIEFLY X1, THEN PATIENT WENT INTO [facility]. CODE CALLED AT 1124, PT WITH AGONAL BREATHING UNTIL 1135, NO HEART BEAT PRESENT. FAMILY NOTIFIED, PT TO GO TO [facility] IN [place] PER .
--- NOTE | 2020-05-29 14:11 | NUR ---
TO [facility] AT 1259 WITH BELONGINGS.
--- NOTE | 2020-05-29 16:55 | NUR ---
Initial spiritual care note: Present with pt throughout code. Held his hand and prayed as he passed. No family present.
== END 2020-05-29 11:35 | DRG 871 ==
LOC: ER 13:31 → PCU 17:50 → MEDS 05-25 01:57 → ICUE 05-28 11:51
PROVIDERS: Internal Medicine; Internal Medicine Critical Care Medicine; Physician Assistant; ADMIT Family Medicine
PROC: 5A09357 Assistance with Respiratory Ventilation, Less than 24 Consecutive Hours, Continuous Positive Airway Pressure (ICD-10-PCS; principal; 2020-05-23)
PROC: 0BBL3ZX Excision of Left Lung, Percutaneous Approach, Diagnostic (ICD-10-PCS; 2020-05-25)
PROC: 5A1935Z Respiratory Ventilation, Less than 24 Consecutive Hours (ICD-10-PCS; 2020-05-29)
PROC: 0BH18EZ Insertion of Endotracheal Airway into Trachea, Via Natural or Artificial Opening Endoscopic (ICD-10-PCS; 2020-05-29)
PROC: 02HV33Z Insertion of Infusion Device into Superior Vena Cava, Percutaneous Approach (ICD-10-PCS; 2020-05-29)
PROC: 5A12012 Performance of Cardiac Output, Single, Manual (ICD-10-PCS; 2020-05-29)
DX: A41.9 Sepsis, unspecified organism (principal); J96.21 Acute and chronic respiratory failure with hypoxia; J96.22 Acute and chronic respiratory failure with hypercapnia; I50.33 Acute on chronic diastolic (congestive) heart failure; J18.9 Pneumonia, unspecified organism; J44.1 Chronic obstructive pulmonary disease with (acute) exacerbation; L03.116 Cellulitis of left lower limb; E87.1 Hypo-osmolality and hyponatremia; J44.0 Chronic obstructive pulmonary disease with (acute) lower respiratory infection; I48.20 Chronic atrial fibrillation, unspecified; J93.83 Other pneumothorax; N17.9 Acute kidney failure, unspecified; C34.92 Malignant neoplasm of unspecified part of left bronchus or lung; Z20.828 Contact with and (suspected) exposure to other viral communicable diseases; Z79.82 Long term (current) use of aspirin; Z79.84 Long term (current) use of oral hypoglycemic drugs; Z89.611 Acquired absence of right leg above knee; I11.0 Hypertensive heart disease with heart failure; Z68.36 Body mass index [BMI] 36.0-36.9, adult; I95.9 Hypotension, unspecified; R59.1 Generalized enlarged lymph nodes; Z87.891 Personal history of nicotine dependence
CPT/HCPCS: 31500; 31720; 32400; 36415; 36600; 51703; 71045; 71046; 71260; 77012; 80048; 80053; 82803; 82945; 82947; 83605; 83615; 83735; 83880; 84155; 84157; 84484; 85025; 85610; 87040; 87070; 87075; 87077; 87186; 87205; 88108; 88305; 88341; 88342; 89051; 93005; 93010; 93306; 93971; 94002; 94003; 94640; 94660; 94762; 96361; 96365-59; 96375-59; 97110; 97162; 99285-25; A9270-GY; C9113; J0456; J0690; J0692; J0696; J1650; J1815; J1940; J2250; J2704; J2920; J2930; J3370; J7030; J7050; J7060; P9046; Q9967; U0002